=== PATIENT | male | born 1980 | race Two or more races ===

== ENCOUNTER → 2020-03-28 08:30 | Outpatient (BNVA) | payer OTHER, SELFPAY | PROVIDERS: PCP Internal Medicine Geriatric Medicine; Visit Provider Internal Medicine Gastroenterology | DX: Z13.89 Encounter for screening for other disorder (principal) | CPT/HCPCS: Q3014 ==

== ENCOUNTER 2020-06-14 10:02 | Outpatient (REF) | payer OTHER, SELFPAY ==
--- NOTE | ~2020-06-14 | XR_ITS ---
EXAMINATION: XR CERVICAL SPINE CLINICAL INFORMATION: Enteritis COMPARISON: Previous exam most recent October 2016 TECHNIQUE: 6 views of the cervical spine including swimmer's and bilateral oblique views were obtained. FINDINGS: Bone alignment is normal. No fracture or dislocation is seen. There is evidence of degenerative cervical spondylosis at C6-C7. Disc spaces are normal. There is mild right-sided neuroforaminal narrowing from bony osteophyte at C3-C4 C5-C6 and C6-C7. Evaluation of left-sided neural foramen is limited due to patient positioning. There is left-sided neuroforaminal narrowing at C4-C5 and C6-C7 from bony osteophyte. Prevertebral soft tissues are normal. XR/XR cervical spine 4V IMPRESSION: Mild degenerative spondylosis at C6-C7. Bilateral neuroforaminal narrowing from bony osteophyte.
--- NOTE | 2020-06-14 10:15 | EMG_ITS ---
HISTORY OF PRESENT ILLNESS: This is a 39-year-old man with a history of left upper extremity pain, mostly in the shoulder area going down the left upper extremity. CURRENT MEDICATIONS: Gabapentin 600 mg a day, nabumetone 750, oxycodone , bupropion SR 300, trazodone 100 mg, clonazepam 1 mg, atenolol, omeprazole, prazosin, and terbinafine. PHYSICAL EXAMINATION: On examination, he is alert and oriented with normal intellectual functions. Cranial nerves II through XII are normal. Muscle tone and strength are normal in all 4 extremities. Deep tendon reflexes symmetrical. Plantar response are flexor. IMPRESSION: Rule out cervical radiculopathy. Nerve conduction EMG study: Normal electrodiagnostic study of the left upper extremity with no evidence of nerve entrapment or carpal tunnel syndrome. Normal EMG of the left C5 through T1 innervated muscles. MD ANA Abdullahi/ANASTASIYA / [id number]
== END 2020-06-14 10:03 | disposition home or self-care (01) ==
LOC: HO.NEURO 10:02
PROVIDERS: PCP Internal Medicine Geriatric Medicine; Visit Provider Internal Medicine Geriatric Medicine
DX: M79.2 Neuralgia and neuritis, unspecified (principal); R20.0 Anesthesia of skin
CPT/HCPCS: 72050; 95885; 95910

== ENCOUNTER 2020-07-14 12:43 | Emergency (ER) | payer OTHER, SELFPAY ==
--- NOTE | 2020-07-14 | ECG_ITS ---
Test Reason : CHEST PAIN Blood Pressure : / mmHG Vent. Rate : 069 BPM Atrial Rate : 069 BPM P-R Int : 144 ms QRS Dur : 096 ms QT Int : 410 ms P-R-T Axes : 012 002 000 degrees QTc Int : 439 ms Normal sinus rhythm Moderate voltage criteria for LVH, may be normal variant Borderline ECG When compared with ECG of 05-NOV-2018 15:18, No significant change was found Referred By: Generic ED Physician Electronically Signed By:RENA COLES MD
--- NOTE | ~2020-07-14 | XR_ITS ---
EXAMINATION: XR CHEST CLINICAL INFORMATION: Chest pain and palpitations COMPARISON: None TECHNIQUE: Frontal view of the chest was obtained. FINDINGS: The lungs are well-expanded and clear of acute process. Heart size and vascularity is normal. No gross bony abnormality. XR/XR chest 1V IMPRESSION: Unremarkable chest exam.
[2020-07-14 13:00] VITALS: BP 139/84; PULSE 74; RESP 18; TEMP 36.8; O2SAT 99; BMI 38.6
--- NOTE | 2020-07-14 14:32 | ED.GENADULT ---
HPI - General Adult General Chief complaint: Arrhythmia/Palpitations Stated complaint: HBP headache chest pain Time Seen by Provider: 07/14/20 13:50 Source: patient Mode of arrival: ambulatory Limitations: no limitations History of Present Illness HPI narrative: 40 y/o male with history of HTN on atenolol/HCTZ, anxiety, depression, hx diverticultiis, s/p lumbar fusion in the past who presents to the ED complaining of 3 days of episodic non-radiating central chest discomfort, palpitations, and headaches for the last 3 days. He has been compliant with his medications. He reports his BP was as high as 150/110 at home, his usual BP is 130/80's. He reports episodes of palpitations and SOB that occurred at rest or with exertion. He has increased anxiety lately. He denies fever, chills, N/V, abdominal pain, urinary symptoms, vision changes, or sick contacts. He presents with photos of his BP readings from home they are 130-140's systolic and 80-90's diastolic. MD complaint: high blood pressure, headache, chest pain Onset (ago): day(s) (3) Location: head and chest Radiation: non-radiation Severity: mild Severity scale (1-10): 3 Quality: aching Pain Consistency: intermittent Relieving factors: rest Exacerbating factors: movement Associated symptoms: chest pain, headaches and shortness of breath Treatments prior to arrival: none Related Data Previous Rx's Medication Instructions Recorded omeprazole 20 mg capsule,delayed 20 mg PO DAILY #60 cap 03/28/20 release Allergies Allergy/AdvReac Type Severity Reaction Status Date / Time tramadol [TRAMADOL] AdvReac Intermediate HTN Unverified 12/30/19 18:57 Bleach Allergy Mild Abdominal Uncoded 03/28/20 08:32 Pain Review of Systems Review of Systems: Constitutional: No Fever, No Chills ENT/Mouth: No sore throat, No Rhinorrhea, No Swallowing Difficulty Cardiovascular: + Chest Pain, + SOB, No Orthopnea, No Edema Respiratory: No Cough, No Sputum, No Wheezing, No dyspnea Gastrointestinal: No Nausea, No Vomiting, No Diarrhea, No abdominal Pain Genitourinary: No Dysuria, No Urinary Frequency, No Hematuria Musculoskeletal: No joint pain, No Myalgias Skin: No Skin Lesions, No rash Neuro: No Weakness, No Numbness, No Dizziness, + Headache Psych: + Anxiety/Panic, No Depression Heme/Lymph: No Bruising, No Lymphadenopathy Endocrine: No Polyuria, No Polydipsia PMFSH Past Medical History Attestation statement: The following information was validated with the patient. Medical History Anxiety Depression HTN (hypertension) Surgical History (Updated 03/28/20 @ 08:33 by Ema Mariscal CMA) History of back surgery History of colonoscopy Family History Family History (Updated 03/28/20 @ 08:34 by Ema Mariscal CMA) Father History of dementia Mother Family history of high blood pressure Social History Social History (Updated 03/28/20 @ 08:35 by Ema Mariscal CMA) Alcohol intake: current Alcohol intake frequency: holidays/special occasions only Smoking Status: Never smoker Tobacco Type: Cigarette Smoked in Last 30 Days: No Use of substances other than those prescribed or required for medical reasons: No Advance Directives: No Advance Directives Information Provided: No Physical Exam Vital Signs: Vital Signs: Last Vital Signs Temp 98.3 F 07/14/20 13:00 Pulse 71 07/14/20 14:52 Resp 17 07/14/20 14:52 BP 115/67 07/14/20 14:52 Pulse Ox 99 07/14/20 14:52 Body Mass Index 38.6 Appearance: Alert. Oriented X3. No acute distress. Eyes: Pupils equal, round and reactive to light. ENT: Pharynx normal. Neck: Normal inspection. Neck supple. CVS: Normal heart rate and rhythm. Pulses normal. Respiratory: No respiratory distress. Breath sounds normal. Mild parasternal chest wall tenderness Abdomen: Soft and nontender. +BS x4 Skin: Skin warm and dry. Normal skin color. Normal skin turgor. No rashes. Extremities: No lower extremity edema. Negative Dayana's sign. Neuro: Oriented X 3. No motor deficit. No sensory deficit. Course Course Course Narrative: 40 y/o male with history of HTN & anxiety presenting with high BP at home along with headaches and chest pain. BP 130/80's on arrival. He appears well on examination. He has mild reproducible chest discomfort. Mother explaining what sounds like anxiety attack prior to arrival which prompted ER evaluation, symptoms now resolved. Will get EKG, CXR and metabolic workup. Doubt ACS or PE. Reevaluation(s) Reevaluation #1: EKG unchanged. Other workup is unremarkable including negative troponin. Viral PCR negative. Patient's BP 120/70's without intervention. He is chest pain free. Anxiety likely playing a role in his episodic chest pain. He is stable for discharge with plans to follow up with his PCP and return to the ER if symptoms worsen. Medical Decision Making Lab Data Result diagrams: 07/14/20 15:30 07/14/20 15:30 Labs: Lab Results 07/14/20 07/14/20 07/14/20 Range/Units 15:30 15:30 15:30 WBC 7.9 (4.8-10.8) X10*3/uL RBC 5.36 (4.60-5.80) X10*6/uL Hgb 14.9 (14.0-18.0) g/dl Hct 44.4 (42-52) % MCV 82.8 (80-98) fL MCH 27.8 (27.0-33.0) pg MCHC 33.6 (31.0-36.0) g/dl RDW 13.2 (11.0-16.0) % Plt Count 239 (160-400) X10*3/uL MPV 12.1 (9.4-12.4) fL Immature Gran % (Auto) 0.3 (0.0-0.4) % Neut % (Auto) 54.7 (45-73) % Lymph % (Auto) 30.2 (20-40) % [place] % (Auto) 12.8 H (2-11) % Eos % (Auto) 1.1 (0-4) % Baso % (Auto) 0.9 (0-2) % Lymph # (Auto) 2.4 (1.2-4.9) X10*3/uL [place] # (Auto) 1.0 (0.1-1.2) X10*3/uL Eos # (Auto) 0.1 (0.0-0.4) X10*3/uL Baso # (Auto) 0.1 (0.0-0.2) X10*3/uL Abs Immat Gran (auto) 0.02 (0.00-0.03) X10*3/uL Absolute Neuts (auto) 4.3 (2.0-8.3) X10*3/uL Absolute Nucleated RBC 0.000 (0.0-0.012) X10*3/uL Nucleated RBC % (auto) 0.0 (0.0-0.2) /100WBC PT 13.7 H (10.8-13.0) SEC INR 1.2 H (0.9-1.1) APTT 34.9 (24.1-38.0) SEC Sodium 140 (135-145) mmol/L Potassium 3.3 (3.3-5.1) mmol/L Chloride 98 (96-108) mmol/L Carbon Dioxide 34 H (22-29) mmol/L Anion Gap 11 L (12-20) BUN 18 H (9-16) mg/dL Creatinine 1.19 (0.5-1.4) mg/dL Estim Creat Clear Calc 115.8 Estimated GFR > 60 Random Glucose 96 (60-115) mg/dL Calcium 9.2 (8.4-10.2) mg/dL Magnesium 2.0 (1.6-2.6) mg/dL Total Bilirubin 0.8 (0.0-1.0) mg/dL AST 33 (5-37) U/L ALT 47 H (0-40) U/L Alkaline Phosphatase 60 (39-117) U/L Troponin I High Sens (<3.5-35.0) ng/L Total Protein 7.6 (6.5-8.0) g/dL Albumin 4.5 (3.5-5.0) g/dL TSH Coronavirus (PCR) (Negative) Influenza Type A (PCR) (Negative) Influenza Type B (PCR) (Negative) RSV RNA Qual (PCR) (Negative) 07/14/20 07/14/20 07/14/20 Range/Units 15:30 15:30 15:30 WBC (4.8-10.8) X10*3/uL RBC (4.60-5.80) X10*6/uL Hgb (14.0-18.0) g/dl Hct (42-52) % MCV (80-98) fL MCH (27.0-33.0) pg MCHC (31.0-36.0) g/dl RDW (11.0-16.0) % Plt Count (160-400) X10*3/uL MPV (9.4-12.4) fL Immature Gran % (Auto) (0.0-0.4) % Neut % (Auto) (45-73) % Lymph % (Auto) (20-40) % [place] % (Auto) (2-11) % Eos % (Auto) (0-4) % Baso % (Auto) (0-2) % Lymph # (Auto) (1.2-4.9) X10*3/uL [place] # (Auto) (0.1-1.2) X10*3/uL Eos # (Auto) (0.0-0.4) X10*3/uL Baso # (Auto) (0.0-0.2) X10*3/uL Abs Immat Gran (auto) (0.00-0.03) X10*3/uL Absolute Neuts (auto) (2.0-8.3) X10*3/uL Absolute Nucleated RBC (0.0-0.012) X10*3/uL Nucleated RBC % (auto) (0.0-0.2) /100WBC PT (10.8-13.0) SEC INR (0.9-1.1) APTT (24.1-38.0) SEC Sodium (135-145) mmol/L Potassium (3.3-5.1) mmol/L Chloride (96-108) mmol/L Carbon Dioxide (22-29) mmol/L Anion Gap (12-20) BUN (9-16) mg/dL Creatinine (0.5-1.4) mg/dL Estim Creat Clear Calc Estimated GFR Random Glucose (60-115) mg/dL Calcium (8.4-10.2) mg/dL Magnesium (1.6-2.6) mg/dL Total Bilirubin (0.0-1.0) mg/dL AST (5-37) U/L ALT (0-40) U/L Alkaline Phosphatase (39-117) U/L Troponin I High Sens < 3.5 (<3.5-35.0) ng/L Total Protein (6.5-8.0) g/dL Albumin (3.5-5.0) g/dL TSH Cancelled Coronavirus (PCR) NEGATIVE (Negative) Influenza Type A (PCR) NEGATIVE (Negative) Influenza Type B (PCR) NEGATIVE (Negative) RSV RNA Qual (PCR) NEGATIVE (Negative) ECG Data Attestation: I personally reviewed and interpreted this ECG as follows: Interpretation: normal sinus rhythm, HR 69 bpm, [place] interval, QTc normal. isolated t-wave inversion in lead III which is unchanged from 2019 Discharge Plan Discharge Clinical Impression: Anxiety, Hypertension Patient Disposition: Home, Self-Care Instructions: Hypertension (ED), Anxiety (ED) Additional Instructions: Your workup today was normal. Your EKG was unchanged from prior. Your chest x-ray was negative. You were NEGATIVE for COVID, Flu and RSV. It is very unlikely that your pain is due to life threatening causes. Stick to a low salt diet to help control your blood pressure. Anxiety is likely a contributing factor. Recommend following up with your doctor next week. If you have worsening symptoms come back to the ER for further evaluation. Prescriptions: No Action omeprazole 20 mg capsule,delayed release(DR/EC) 20 mg PO DAILY Qty: 60 RF: 3
[2020-07-14 14:52] VITALS: BP 115/67; PULSE 71; RESP 17; O2SAT 99
[2020-07-14 15:43] LABS: MANUAL DIFF FLAG NO
[2020-07-14 15:45] LABS: Basophils Absolute Auto 0.1 X10*3/uL (0.0-0.2); Basophils Percent Auto 0.9 % (0-2); Eosinophils Absolute Auto 0.1 X10*3/uL (0.0-0.4); Eosinophils Percent Auto 1.1 % (0-4); Hematocrit 44.4 % (42-52); Hemoglobin 14.9 g/dl (14.0-18.0); Imm Gran Abs Auto 0.02 X10*3/uL (0.00-0.03); Imm Gran Pct Auto 0.3 % (0.0-0.4); Lymphocytes Absolute Auto 2.4 X10*3/uL (1.2-4.9); Lymphocytes Percent Auto 30.2 % (20-40); Mean Corpuscular HGB Conc 33.6 g/dl (31.0-36.0); Mean Corpuscular Hemoglobin 27.8 pg (27.0-33.0); Mean Corpuscular Volume 82.8 fL (80-98); Mean Platelet Volume 12.1 fL (9.4-12.4); Monocytes Percent Auto 12.8 % (2-11); Neutrophils Absolute Auto 4.3 X10*3/uL (2.0-8.3); Neutrophils Percent Auto 54.7 % (45-73); Platelet Count 239 X10*3/uL (160-400); Red Blood Count 5.36 X10*6/uL (4.60-5.80); Red Cell Distribution Width 13.2 % (11.0-16.0); White Blood Count 7.9 X10*3/uL (4.8-10.8)
[2020-07-14 15:52] LABS: INTERNATIONAL NORM RATIO 1.2 (0.9-1.1); Prothrombin Time 13.7 SEC (10.8-13.0)
[2020-07-14 15:54] LABS: Partial Thromboplastin Time 34.9 SEC (24.1-38.0)
[2020-07-14 16:11] LABS: Alanine Aminotransferase 47 U/L (0-40); Albumin Level 4.5 g/dL (3.5-5.0); Alkaline Phosphatase 60 U/L (39-117); Anion Gap 11 (12-20); Aspartate Amino Transferase 33 U/L (5-37); Bilirubin Total 0.8 mg/dL (0.0-1.0); Blood Urea Nitrogen 18 mg/dL (9-16); Calcium 9.2 mg/dL (8.4-10.2); Carbon Dioxide 34 mmol/L (22-29); Chloride 98 mmol/L (96-108); Creatinine Clr Calc Pharmacy 115.8; Estimated Glomerular Filt Rate > 60; Glucose Random 96 mg/dL (60-115); Potassium 3.3 mmol/L (3.3-5.1); Sodium 140 mmol/L (135-145); Total Protein 7.6 g/dL (6.5-8.0)
[2020-07-14 16:14] LABS: Troponin-I High Sensitivity < 3.5 ng/L (<3.5-35.0)
[2020-07-14 16:19] LABS: Influenza A PCR NEGATIVE (Negative); Influenza B PCR NEGATIVE (Negative); Resp Syncy Virus RNA Qual PCR NEGATIVE (Negative); SARS COV2 PCR INHOUSE NEGATIVE (Negative)
[2020-07-14 16:56] LABS: TSH reflex Free T4 1.18 uIU/mL (0.32-4.0)
== END 2020-07-14 17:15 | disposition home or self-care (01) ==
PROVIDERS: Nurse Practitioner Primary Care; Physician Assistant; Emergency Provider Emergency Medicine; PCP Internal Medicine Geriatric Medicine
DX: F41.9 Anxiety disorder, unspecified (principal); I10 Essential (primary) hypertension; Z79.899 Other long term (current) drug therapy; Z20.822 Contact with and (suspected) exposure to COVID-19
CPT/HCPCS: 0241U; 36415; 71045; 80053; 83735; 84443; 84484; 85025; 85610; 85730; 93005; 99283; 99285

== ENCOUNTER → 2020-10-25 10:27 | Outpatient (BNVA) | payer OTHER, SELFPAY | PROVIDERS: Visit Provider Physician Assistant | DX: Z13.89 Encounter for screening for other disorder (principal) | CPT/HCPCS: Q3014 ==

== ENCOUNTER 2020-10-28 08:04 | Observation (INO) | payer OTHER, SELFPAY ==
--- NOTE | ~2020-10-28 | CT_ITS ---
EXAMINATION: CT ABDOMEN AND PELVIS WITH CONTRAST CLINICAL INFORMATION: Abdominal pain. History of diverticulitis. COMPARISON: None TECHNIQUE: Multidetector volumetric images were obtained from the superior aspect of the liver through the pubic symphysis following administration 85 mL of Omnipaque 350 intravenous contrast. Sagittal and coronal reformatted images were obtained on the technologist's workstation. Oral contrast: No This CT examination was performed using dose optimization techniques as appropriate, variously including the following: *Automated exposure control *Adjustment of mA and/or kV according to patient size (this includes techniques or standardized protocols for targeted exams where dose is matched to indication/reason for exam; i.e. extremities or head) *Use of iterative reconstruction technique DLP: 1326 mGy-cm FINDINGS: LUNG BASES: The heart size is normal. There is minimal bibasilar atelectasis. LIVER, GALLBLADDER, AND BILIARY TREE: The liver is normal in size, shape, and diffusely attenuated. No focal hepatic lesion or biliary ductal dilatation is present. The gallbladder is unremarkable with no evidence of radiopaque gallstones, gallbladder wall thickening, or obvious pericholecystic inflammatory changes. PANCREAS: Unremarkable. SPLEEN: Unremarkable. ADRENAL GLANDS: Unremarkable. KIDNEYS AND URETERS: The kidneys are normal in size, shape, and attenuation. No hydronephrosis, hydroureter, or calculi seen. No perinephric stranding. BLADDER: Unremarkable. GASTROINTESTINAL TRACT: There is scattered stool, diverticuli and gas seen throughout the colon. The small bowel loops are normal caliber. Appendix is thickened with focal hyperdensity it measures 1.2 cm in the diameter there is mild haziness surrounding the appendix suspicious for early appendicitis no periappendiceal fluid collection or free air. ABDOMINAL WALL: No significant hernia is appreciated. LYMPH NODES: Normal. VASCULAR: Unremarkable. PELVIC VISCERA: The prostate gland is normal size with central gland calcification. There is no free fluid. Small shotty lymph nodes seen in the inguinal region. No pelvic abnormal lymph nodes seen. OSSEOUS STRUCTURES: There is moderate posterior spondylosis with bridging osteophytes L2-L3. L3-L4 and L4-L5 disc levels. There is grade 1 anterolisthesis L5-S1 with spondylosis and posterior hardware for stabilization of listhesis. There are posterior epidural spinal stimulator in the lower dorsal spine. The generalized within the left lower back soft tissues. CT/CT abdomen pelvis w con IMPRESSION: Suspect early acute appendicitis. The appendix measures 1 cm. There is no suggestion for perforation or fluid collection. Correlate with clinical exam. Scattered colonic diverticulosis but no diverticulitis is suspected. Diffuse hepatic steatosis without focal lesion.
--- NOTE | 2020-10-28 08:23 | ED.ABDPAIN ---
HPI - Abdominal Pain General Chief Complaint: Nausea/Vomiting/Diarrhea Stated Complaint: Stomach Pains Time Seen by Provider: 10/28/20 08:23 Source: patient and family Mode of arrival: ambulatory Limitations: no limitations History of Present Illness MD elicited complaint: abdominal pain Pertinent past history: diverticulitis Onset (ago): hour(s) (last night) Pain Consistency: constant Location: diffuse Severity: moderate Quality: stabbing Radiation: none Migration to: no migration Exacerbating factors: eating Relieving factors: nothing Associated symptoms: nausea, vomiting and diarrhea Related Data Home Medications Medication Instructions Recorded Confirmed atenolol 50 mg-chlorthalidone 25 1 tab PO DAILY 10/25/20 10/25/20 mg tablet bupropion HCl 300 mg 24 hr tablet, 300 mg PO QAM 10/25/20 10/25/20 extended release clonazepam 1 mg tablet 1 mg PO TID PRN 10/25/20 10/25/20 ergocalciferol (vitamin D2) 1,250 1,250 mcg PO QWEEK 10/25/20 10/25/20 mcg (50,000 unit) capsule fluticasone propionate 50 2 spray INTRANASAL DAILY 10/25/20 10/25/20 mcg/actuation nasal spray,suspension gabapentin 600 mg tablet 600 mg PO TID 10/25/20 10/25/20 nabumetone 750 mg tablet 750 mg PO BID 10/25/20 10/25/20 oxycodone-acetaminophen 5 mg-325 1 tab PO TID PRN 10/25/20 10/25/20 mg tablet prazosin 1 mg capsule 1 mg PO BEDTIME 10/25/20 10/25/20 trazodone 100 mg tablet 0 mg PO 10/25/20 10/25/20 Previous Rx's Medication Instructions Recorded omeprazole 20 mg capsule,delayed 20 mg PO DAILY #60 cap 03/28/20 release sennosides 8.6 mg tablet 8.6 mg PO BEDTIME #30 tab 10/25/20 Allergies Allergy/AdvReac Type Severity Reaction Status Date / Time tramadol [TRAMADOL] AdvReac Intermediate HTN Verified 10/25/20 10:27 Bleach Allergy Mild Abdominal Uncoded 03/28/20 08:32 Pain Review of Systems Review of Systems Constitutional : No Weight loss, No Fever, No Chills ENT/Mouth : No sore throat, No Rhinorrhea Eyes: No Swelling, No Redness Cardiovascular : No Chest Pain, No SOB, NoEdema Respiratory : No Cough, No Sputum, No Wheezing Gastrointestinal : Positive Nausea, Positive Vomiting, positive Diarrhea, positive abdominal Pain, No Hematochezia, No Melena Genitourinary : No Dysuria, No Urinary Frequency, No Hematuria, No Urgency Musculoskeletal : No joint pain, No Myalgias, No Joint Swelling Skin : No Skin Lesions, No rash Neuro : No Weakness, No Numbness, No Dizziness, No Headache Psych : No Anxiety/Panic, No Depression Heme/Lymph: No Bruising, No Lymphadenopathy Endocrine : No Polyuria, No Polydipsia All other systems reviewed and are negative. Physical Exam Vital Signs: Vital Signs: Last Vital Signs Temp 98.4 F 10/28/20 08:25 Pulse 76 10/28/20 08:25 BP 145/90 H 10/28/20 08:25 Pulse Ox 98 10/28/20 08:25 Body Mass Index 39.3 Appearance: Alert. Oriented X3. No acute distress. Eyes: Pupils equal, round and reactive to light. ENT: Pharynx normal. Neck: Normal inspection. Neck supple. CVS: Normal heart rate and rhythm. Pulses normal. Respiratory: No respiratory distress. Breath sounds normal. Abdomen: Soft and moderate diffuse ttp no rebound or guarding Skin: Skin warm and dry. Normal skin color. Normal skin turgor. Extremities: No lower extremity edema. No calf ttp Neuro: Oriented X 3. No motor deficit. No sensory deficit. Course Course Course Narrative: ? early appendicitis, repeat IV pain medications, no tachycardia fever WBC count no signs of sepsis, IV zosyn ordered, message sent to Dr. Delong 1030am [facility] - Abdominal Pain MDM Narrative Medical decision making narrative: 40 yo male with hx of HTN, GERD, chronic back pain comes in with n/v/d and abdominal pain after eating food at home last night - at this time will need labs, IV morphine for pain, CT scan for diverticulitis, dispo per results and findings. Differential Diagnosis Differential diagnosis: Likely abdominal pain, diverticulitis, gastroenteritis and gastritis; Unlikely aortic dissection and acute appendicitis Lab Data Result diagrams: 10/28/20 08:39 10/28/20 08:39 Labs: Lab Results 10/28/20 10/28/20 Range/Units 08:39 08:39 WBC 10.5 (4.8-10.8) X10*3/uL RBC 5.20 (4.60-5.80) X10*6/uL Hgb 14.6 (14.0-18.0) g/dl Hct 42.7 (42-52) % MCV 82.1 (80-98) fL MCH 28.1 (27.0-33.0) pg MCHC 34.2 (31.0-36.0) g/dl RDW 13.3 (11.0-16.0) % Plt Count 213 (160-400) X10*3/uL MPV 11.1 (9.4-12.4) fL Immature Gran % (Auto) 0.4 (0.0-0.4) % Neut % (Auto) 81.2 H (45-73) % Lymph % (Auto) 8.1 L (20-40) % [place] % (Auto) 9.2 (2-11) % Eos % (Auto) 0.5 (0-4) % Baso % (Auto) 0.6 (0-2) % Lymph # (Auto) 0.9 L (1.2-4.9) X10*3/uL [place] # (Auto) 1.0 (0.1-1.2) X10*3/uL Eos # (Auto) 0.1 (0.0-0.4) X10*3/uL Baso # (Auto) 0.1 (0.0-0.2) X10*3/uL Abs Immat Gran (auto) 0.04 H (0.00-0.03) X10*3/uL Absolute Neuts (auto) 8.5 H (2.0-8.3) X10*3/uL Absolute Nucleated RBC 0.000 (0.0-0.012) X10*3/uL Nucleated RBC % (auto) 0.0 (0.0-0.2) /100WBC Sodium 140 (135-145) mmol/L Potassium 3.5 (3.3-5.1) mmol/L Chloride 100 (96-108) mmol/L Carbon Dioxide 29 (22-29) mmol/L Anion Gap 15 (12-20) BUN 14 (9-16) mg/dL Creatinine 1.09 (0.5-1.4) mg/dL Estim Creat Clear Calc 127.6 Estimated GFR > 60 Random Glucose 148 H D (60-115) mg/dL Calcium 9.8 D (8.4-10.2) mg/dL Magnesium 1.6 (1.6-2.6) mg/dL Total Bilirubin 0.9 (0.0-1.0) mg/dL Direct Bilirubin 0.3 (0.0-0.5) mg/dL AST 28 (5-37) U/L ALT 38 (0-40) U/L Alkaline Phosphatase 77 D (39-117) U/L Total Protein 7.7 (6.5-8.0) g/dL Albumin 4.4 (3.5-5.0) g/dL Lipase 29 (8-78) U/L Discharge Plan Discharge Clinical Impression: Abdominal pain Qualifiers: Abdominal location: right lower quadrant Qualified Code(s): R10.31 - Right lower quadrant pain Acute appendicitis Qualifiers: Acute appendicitis type: with localized peritonitis Appendicitis gangrene presence: without gangrene Appendicitis perforation presence: without perforation Appendicitis abscess presence: without abscess Qualified Code(s): K35.30 - Acute appendicitis with localized peritonitis, without perforation or gangrene Patient Disposition: Admitted As Inpatient [facility] Past Medical History Attestation statement: The following information was validated with the patient. Medical History Anxiety Depression HTN (hypertension) Surgical History History of back surgery History of colonoscopy Family History Family History Father History of dementia Mother Family history of high blood pressure Social History Social History Household Members Other:: Alcohol intake: never Patient Tobacco Use Status: Former Tobacco user Use of substances other than those prescribed or required for medical reasons: No Advance Directives: No Advance Directives Information Provided: Yes Current occupational status: unemployed
[2020-10-28 08:25] VITALS: BP 145/90; PULSE 76; TEMP 36.9; O2SAT 98; BMI 39.3
[2020-10-28] MEDS: 0.9 % Sodium Chloride 1,000 ML 999 ML IVCONT (08:42)
[2020-10-28] MEDS: ondansetron HCL 4 MG/2 ML VIAL IVPUSH (08:43)
[2020-10-28] MEDS: Famotidine/PF 20 MG/2 ML VIAL IVPUSH (08:43)
[2020-10-28 08:44] LABS: Basophils Absolute Auto 0.1 X10*3/uL (0.0-0.2); Basophils Percent Auto 0.6 % (0-2); Eosinophils Absolute Auto 0.1 X10*3/uL (0.0-0.4); Eosinophils Percent Auto 0.5 % (0-4); Hematocrit 42.7 % (42-52); Hemoglobin 14.6 g/dl (14.0-18.0); Imm Gran Abs Auto 0.04 X10*3/uL (0.00-0.03); Imm Gran Pct Auto 0.4 % (0.0-0.4); Lymphocytes Absolute Auto 0.9 X10*3/uL (1.2-4.9); Lymphocytes Percent Auto 8.1 % (20-40); MANUAL DIFF FLAG NO; Mean Corpuscular HGB Conc 34.2 g/dl (31.0-36.0); Mean Corpuscular Hemoglobin 28.1 pg (27.0-33.0); Mean Corpuscular Volume 82.1 fL (80-98); Mean Platelet Volume 11.1 fL (9.4-12.4); Monocytes Percent Auto 9.2 % (2-11); Neutrophils Absolute Auto 8.5 X10*3/uL (2.0-8.3); Neutrophils Percent Auto 81.2 % (45-73); Platelet Count 213 X10*3/uL (160-400); Red Cell Distribution Width 13.3 % (11.0-16.0); White Blood Count 10.5 X10*3/uL (4.8-10.8)
[2020-10-28] MEDS: Morphine Sulfate 4 MG/ML CARTRIDGE IVPUSH ×2 (08:44→23:37)
[2020-10-28 09:14] LABS: Alanine Aminotransferase 38 U/L (0-40); Albumin Level 4.4 g/dL (3.5-5.0); Alkaline Phosphatase 77 U/L (39-117); Anion Gap 15 (12-20); Aspartate Amino Transferase 28 U/L (5-37); Bilirubin Direct 0.3 mg/dL (0.0-0.5); Bilirubin Total 0.9 mg/dL (0.0-1.0); Blood Urea Nitrogen 14 mg/dL (9-16); Calcium 9.8 mg/dL (8.4-10.2); Carbon Dioxide 29 mmol/L (22-29); Chloride 100 mmol/L (96-108); Creatinine Clr Calc Pharmacy 127.6; Estimated Glomerular Filt Rate > 60; Glucose Random 148 mg/dL (60-115); Lipase 29 U/L (8-78); Magnesium 1.6 mg/dL (1.6-2.6); Potassium 3.5 mmol/L (3.3-5.1); Sodium 140 mmol/L (135-145); Total Protein 7.7 g/dL (6.5-8.0)
[2020-10-28] MEDS: iohexoL 350 MG/ML 100 ML INFUS..BTL IV (09:57)
[2020-10-28] MEDS: 0.9 % Sodium Chloride 1,000 ML 125 ML IVCONT ×2 (10:43→18:39)
[2020-10-28] MEDS: HYDROmorphone HCl 1 MG/ML SYRINGE IVPUSH (10:44)
[2020-10-28] MEDS: Piperacillin Sodium/Tazobactam 3.375 GM in 0.9 % Sodium Chloride 50 ML IV ×3 (10:45→20:34)
[2020-10-28 11:41] LABS: COVID-19 Test Negative (Negative)
[2020-10-28 11:46] LABS: INTERNATIONAL NORM RATIO 1.2 (0.9-1.1); Prothrombin Time 13.8 SEC (9.9-13.0)
--- NOTE | 2020-10-28 12:05 | PM.HPGS ---
History of Present Illness History of Present Illness Date of Service: 10/28/20 Chief complaint: Stomach Pains Narrative: Marino Fine is a 40 year old male with a previous history of diverticulitis presenting with complaints of abdominal pain diffusely in the lower abdomen since yesterday. Pain is associated with anorexia, nausea, vomiting, and diarrhea. Pain feels different than his usual diverticulitis symptoms. When the pain became more severe he presented to the emergency department for further evaluation. Evaluation in the ED revealed diffuse tenderness especially in the lower abdomen. Laboratories revealed normal WBC however CT revealed mild thickening of the appendix with no surrounding fluid, suggestive of early appendicitis. He is being admitted for management of this early appendicitis Review of Systems Review of Systems: Yes all other systems are reviewed and are negative Constitutional: Constitutional: Denies chills, Denies fever(s), Denies night sweats and Denies poor appetite Cardiovascular: Cardiovascular: Denies chest pain, Denies irregular heart rhythm and Denies lightheadedness Respiratory: Respiratory: Denies chest congestion, Denies cough and Denies excessive phlegm production Gastrointestinal: Gastrointestinal: Reports as per HPI, Reports abdominal pain, Reports GI cramping, Reports nausea and Reports vomiting Hematologic/Lymphatic: Hematologic/Lymphatic: Reports no additional hematologic/lymphatic complaints PMFSH Past Medical History Medical History (Updated 10/28/20 @ 12:09 by Russ Delong MD) Anxiety Depression GERD (gastroesophageal reflux disease) HTN (hypertension) Family History Family History Father History of dementia Mother Family history of high blood pressure Surgical History Surgical History History of back surgery History of colonoscopy Social History Social History Household Members Other:: Alcohol intake: never Patient Tobacco Use Status: Former Tobacco user Use of substances other than those prescribed or required for medical reasons: No Advance Directives: No Advance Directives Information Provided: Yes Current occupational status: unemployed Meds Allergies Allergy/AdvReac Type Severity Reaction Status Date / Time tramadol [TRAMADOL] AdvReac Intermediate HTN Verified 10/25/20 10:27 Bleach Allergy Mild Abdominal Uncoded 03/28/20 08:32 Pain Active Medications: Current Medications Generic Name Dose Route Start Last Admin Trade Name Jose Guadalupeq PRN Reason Stop Dose Admin Sodium Chloride 1,000 mls @ 125 mls/hr 10/28/20 10:30 10/28/20 10:43 Ns IVCONT 125 mls/hr .Q8H DAISY Administration Pharmacy Consult 1 each 10/28/20 10:24 Consult Rx Perform Med Rec MISCELLANE ONCE PRN Consult order Home Medications Medication Instructions Recorded Confirmed Last Taken Type atenolol 50 mg-chlorthalidone 25 1 tab PO DAILY 10/25/20 10/28/20 Unknown History mg tablet bupropion HCl 300 mg 24 hr tablet, 300 mg PO QAM 10/25/20 10/28/20 Unknown History extended release clonazepam 1 mg tablet 1 mg PO BID PRN 10/25/20 10/28/20 Unknown History ergocalciferol (vitamin D2) 1,250 1,250 mcg PO QWEEK 10/25/20 10/28/20 Unknown History mcg (50,000 unit) capsule gabapentin 600 mg tablet 600 mg PO TID 10/25/20 10/28/20 Unknown History nabumetone 750 mg tablet 750 mg PO BID 10/25/20 10/28/20 Unknown History oxycodone-acetaminophen 5 mg-325 1 tab PO TID PRN 10/25/20 10/28/20 Unknown History mg tablet prazosin 1 mg capsule 1 mg PO BEDTIME 10/25/20 10/28/20 Unknown History trazodone 100 mg tablet 0 mg PO 10/25/20 10/25/20 Unknown History Physical Exam Vital Signs: Vital Signs: Last Vital Signs Temp 98.4 F 10/28/20 08:25 Pulse 76 10/28/20 08:25 BP 145/90 H 10/28/20 08:25 Pulse Ox 98 10/28/20 08:25 Body Mass Index 39.3 Const: General: cooperative, comfortable, no acute distress, alert and awake Neck: Neck: Yes trachea midline and Yes supple Lymphatic: no lymphadenopathy noted Resp: Effort & Inspection: normal respiratory effort, no cough, no stridor and not tachypneic Auscultation: no wheezes GI: Inspection: Yes normal to inspection Palpation (GI): Soft to palpation and Tenderness to palpation present (GI) in the LLQ, in the RLQ and Rovsing's sign positive Percussion: Yes normal to percussion Auscultation: normal bowel sounds Rectal Exam - Male: Yes deferred Skin: Other: Warm, dry, no rash Extrem: General: Yes normal to inspection and Yes full ROM Results Results Labs: Short CBC 10/28/20 Range/Units 08:39 WBC 10.5 (4.8-10.8) X10*3/uL Hgb 14.6 (14.0-18.0) g/dl Hct 42.7 (42-52) % Plt Count 213 (160-400) X10*3/uL BMP 10/28/20 08:39 Sodium 140 Potassium 3.5 Chloride 100 Carbon Dioxide 29 BUN 14 Creatinine 1.09 Calcium 9.8 D Liver Function 10/28/20 Range/Units 08:39 Total Bilirubin 0.9 (0.0-1.0) mg/dL Direct Bilirubin 0.3 (0.0-0.5) mg/dL AST 28 (5-37) U/L ALT 38 (0-40) U/L Alkaline Phosphatase 77 D (39-117) U/L Albumin 4.4 (3.5-5.0) g/dL Assessment and Plan (1) Acute appendicitis: Qualifiers: Acute appendicitis type: with localized peritonitis Appendicitis abscess presence: without abscess Appendicitis gangrene presence: without gangrene Appendicitis perforation presence: without perforation Qualified Code(s): K35.30 - Acute appendicitis with localized peritonitis, without perforation or gangrene Status: Acute 40-year-old male presenting with complaints of lower abdominal pain found on workup to have tenderness in the right lower quadrant and left lower quadrant. Laboratories revealed WBC which was normal at 10.5. CT of the abdomen however did reveal findings suggestive of early appendicitis. We discussed laparoscopic appendectomy verses non operative management with IV antibiotics. After discussion of the risks benefits and alternatives he wishes to proceed with non operative management with IV antibiotics. He will be admitted and started on Zosyn IV. I will repeat is laboratories in the morning. If his symptoms do not improve he may require a laparoscopic appendectomy. Patient understands and agrees with the plan. Quality Stroke Does the patient have a stroke diagnosis?: No VTE Prior VTE?: No VTE Risk Level:: Surgical - low VTE Device Contraindication: N/A - Device Ordered VTE Drug Contraindication: Treatment Not Indicated Procedures Date of Service Date of Service: 10/28/20
[2020-10-28 14:01] VITALS: BP 140/80; PULSE 76; RESP 20; O2SAT 99
[2020-10-28] MEDS: HYDROmorphone HCl 0.5 MG/0.5 ML SYRINGE IVPUSH ×2 (14:03→19:27)
[2020-10-28 14:24] LABS: Glucose Urine UA NEG (NEG); Leukocyte Esterase Urine NEG (NEG); Nitrite Urine NEG (NEG); Urine Blood NEG (NEG); Urine Ketones NEG (NEG); Urine Protein NEG (NEG-TRACE)
[2020-10-28 14:38] LABS: Appearance Urine CLEAR; Color Urine YELLOW
--- NOTE | 2020-10-28 16:23 | PC.NURSE ---
pt informed of likely appendicitis, aware of plan to go to surgery. Pt informed of NPO status. family at bedside. Dilauded helpful for pain
[2020-10-28] MEDS: oxyCODONE HCl Immed Release 5 MG TABLET PO (16:49)
[2020-10-28] MEDS: Acetaminophen 325 MG TABLET 650 MG PO (16:49)
[2020-10-28 18:52] VITALS: BP 120/75; PULSE 96; RESP 15; TEMP 37.6; O2SAT 98
[2020-10-28 19:30] VITALS: BMI 40.2
[2020-10-28 19:58] VITALS: BP 120/75; PULSE 96; RESP 15; TEMP 37.6; O2SAT 98
[2020-10-28 22:32] VITALS: TEMP 37.9
[2020-10-28 23:52] VITALS: BP 119/75; PULSE 109; RESP 18; TEMP 36.4; O2SAT 96
[2020-10-29] VITALS (19 sets, daily range): BP systolic 101–138; BP diastolic 53–84; PULSE 78–106; RESP 16–18; TEMP 36.1–36.8; O2SAT 93–98
[2020-10-29] MEDS: Piperacillin Sodium/Tazobactam 3.375 GM in 0.9 % Sodium Chloride 50 ML IV (03:10)
[2020-10-29] MEDS: 0.9 % Sodium Chloride 1,000 ML 125 ML IVCONT ×3 (03:10→22:26)
[2020-10-29] MEDS: Morphine Sulfate 4 MG/ML CARTRIDGE IVPUSH ×2 (03:10→04:50)
[2020-10-29 06:22] LABS: MANUAL DIFF FLAG NO
[2020-10-29 06:32] LABS: Basophils Percent Auto 0.4 % (0-2); Eosinophils Absolute Auto 0.1 X10*3/uL (0.0-0.4); Eosinophils Percent Auto 1.1 % (0-4); Hematocrit 36.9 % (42-52); Hemoglobin 12.5 g/dl (14.0-18.0); Imm Gran Abs Auto 0.05 X10*3/uL (0.00-0.03); Imm Gran Pct Auto 0.6 % (0.0-0.4); Lymphocytes Absolute Auto 0.9 X10*3/uL (1.2-4.9); Lymphocytes Percent Auto 9.4 % (20-40); Mean Corpuscular HGB Conc 33.9 g/dl (31.0-36.0); Mean Corpuscular Hemoglobin 28.2 pg (27.0-33.0); Mean Corpuscular Volume 83.1 fL (80-98); Mean Platelet Volume 11.5 fL (9.4-12.4); Monocytes Absolute Auto 1.1 X10*3/uL (0.1-1.2); Monocytes Percent Auto 11.6 % (2-11); Neutrophils Percent Auto 76.9 % (45-73); Platelet Count 185 X10*3/uL (160-400); Red Blood Count 4.44 X10*6/uL (4.60-5.80); Red Cell Distribution Width 13.5 % (11.0-16.0); White Blood Count 9.1 X10*3/uL (4.8-10.8)
[2020-10-29 06:52] LABS: Anion Gap 12 (12-20); Blood Urea Nitrogen 9 mg/dL (9-16); Calcium 7.8 mg/dL (8.4-10.2); Carbon Dioxide 29 mmol/L (22-29); Chloride 101 mmol/L (96-108); Creatinine Clr Calc Pharmacy 145.2; Estimated Glomerular Filt Rate > 60; Glucose Random 123 mg/dL (60-115); Potassium 2.9 mmol/L (3.3-5.1); Sodium 139 mmol/L (135-145)
--- NOTE | 2020-10-29 07:31 | PM.PNGS ---
Subjective Subjective Date of Service: 10/29/20 Interval history: Patient continues to have abdominal pain mainly in the right lower quadrant 8 to 10/10 throughout the night, no improvement after the antibiotics. Physical Exam Vital Signs: Vital Signs: Last Vital Signs Temp 97.6 F 10/29/20 04:00 Pulse 97 10/29/20 04:00 Resp 18 10/29/20 04:00 BP 128/74 10/29/20 04:00 Pulse Ox 96 10/29/20 04:00 Body Mass Index 40.2 Const: General: healthy appearing and well developed Nutritional Appearance: well nourished Orientation/consciousness: patient oriented x3 Resp: Effort & Inspection: normal respiratory effort GI: Palpation (GI): Soft to palpation, Tenderness to palpation present (GI) in the RLQ and at McBurney's point, no guarding and not rigid Percussion: Yes normal to percussion Skin: Other: Warm, dry, no rash, normal capillary refill Neuro: General: patient oriented x3 Extrem: General: Yes no clubbing, cyanosis or edema Progress Note: A&P Assessment and plan (1) Acute appendicitis: Status: Acute Assessment and Plan: Patient presents with complaints of abdominal pain in the right lower quadrant found to have possible early appendicitis CT. An attempt management with antibiotics was made however the patient continues to have abdominal pain throughout the night without improvement. I recommended proceeding to a laparoscopic or possible open appendectomy. After discussion of the procedure, risks, and alternatives with both the patient and his they consent to the surgery. He will be added onto the operative schedule for today. Nursing central supply supervisor and Anesthesia notified. Fall Risk Details Current Medications: Current Medications Generic Name Dose Route Start Last Admin Trade Name Freq PRN Reason Stop Dose Admin Sodium Chloride 1,000 mls @ 125 mls/hr 10/28/20 10:30 10/29/20 03:48 Ns IVCONT 125 mls/hr .Q8H DAISY Infusion Piperacillin Sod/Tazobactam 50 mls @ 100 mls/hr 10/28/20 16:00 10/29/20 03:47 Sod 3.375 gm/ Sodium Chloride IV Infused Q6H DAISY Infusion Acetaminophen 1,000 mg in 100 mls @ 400 mls/hr 10/28/20 22:00 10/29/20 04:52 Ofirmev IV Infused Q6H DAISY Infusion Morphine Sulfate 4 mg 10/28/20 23:08 10/29/20 04:50 Morphine Sulfate 4 Mg/Ml Cartridge IVPUSH 4 mg Q2H PRN Administration Pain, Severe (Pain Scale 7-10) Ondansetron HCl 4 mg 10/28/20 12:26 Ondansetron Hcl 4 Mg/2 Ml Vial IVPUSH Q8H PRN Nausea and Vomiting Oxycodone HCl 5 mg 10/28/20 12:26 10/28/20 16:49 Oxycodone Hcl Immed Release 5 Mg Tablet PO 5 mg Q6H PRN Administration Pain, Moderate (Pain Scale 4-6 Pharmacy Consult 1 each 10/28/20 10:24 Consult Rx Perform Med Rec MISCELLANE ONCE PRN Consult order Sodium Chloride 3 ml 10/28/20 16:00 10/28/20 20:36 0.9 % Sodium Chloride Flush 3 Ml Syringe IVFLUSH Not Given QSHIFT DAISY Zolpidem Tartrate 5 mg 10/28/20 12:26 Zolpidem Tartrate 5 Mg Tablet PO BEDTIME PRN Insomnia Time Spent With Patient Time: Total time spent is greater than 50% in coordination of care (as documented) at patient's floor/unit and/or counseling patient: Time with patient: 15 - 24 minutes Procedures Date of Service Date of Service: 10/29/20 Quality Stroke Does the patient have a stroke diagnosis?: No VTE Prior VTE?: No VTE Risk Level:: Surgical - low VTE Device Contraindication: N/A - Device Ordered VTE Drug Contraindication: Treatment Not Indicated
--- NOTE | 2020-10-29 07:34 | MHC.SHP ---
Pre-Procedural Eval Section A Date of Service: 10/29/20 The patient is an INPATIENT: Yes Section B Chief Complaint: Early Appendicitis Allergies: Allergies Allergy/AdvReac Type Severity Reaction Status Date / Time tramadol [TRAMADOL] AdvReac Intermediate HTN Verified 10/25/20 10:27 Bleach Allergy Mild Abdominal Uncoded 03/28/20 08:32 Pain Plan Diagnosis/Plan: Unchanged I have reviewed the history and physical and performed a pertinent physical examination on my patient. No changes have occurred unless specified.
--- NOTE | 2020-10-29 09:21 | MHC.CM.PN ---
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 HE OCCASIONALLY USES A CANE FOR AMBULATION DOES MAJORITY OF TRANSPORTATION. PCP IS [facility] NAME AND UPDATE MADE TO CM OFFICE VIA QUICK TASK. YEARLY LUMBER TRIPPER VISITS THROUGH [facility]. THERE IS A HCP ON FILE; HOWEVER, IT IS INVALID HCP ALSO SIGNED WITNESS. NEW ONE TO BE COMPLETED WHEN PATIENT RETURNS TO FLOOR AND IS ABLE OT MAKE THE DECISION. JAY 10/29 IN CHART.
--- NOTE | 2020-10-29 09:27 | HO.ANESPROP2 ---
[facility] Active Problems Active Problems: All Active Problems (Updated 10/28/20 @ 12:09 by Russ Delong MD) GERD (gastroesophageal reflux disease) (Acute) Abdominal pain (Acute) Acute appendicitis (Acute) Chronic constipation (Acute) Past Medical History Medical History Anxiety Depression GERD (gastroesophageal reflux disease) HTN (hypertension) Family History Family History Father History of dementia Mother Family history of high blood pressure Surgical History Surgical History History of back surgery History of colonoscopy Social History Social History Household Members Other:: Alcohol intake: never Patient Tobacco Use Status: Former Tobacco user Use of substances other than those prescribed or required for medical reasons: No Advance Directives: No Advance Directives Information Provided: Yes service: No Current occupational status: unemployed Meds Allergies Allergy/AdvReac Type Severity Reaction Status Date / Time tramadol [TRAMADOL] AdvReac Intermediate HTN Verified 10/25/20 10:27 Bleach Allergy Mild Abdominal Uncoded 03/28/20 08:32 Pain Active Medications: Current Medications Generic Name Dose Route Start Last Admin Trade Name Freq PRN Reason Stop Dose Admin Sodium Chloride 1,000 mls @ 125 mls/hr 10/28/20 10:30 10/29/20 03:48 Ns IVCONT 125 mls/hr .Q8H DAISY Infusion Piperacillin Sod/Tazobactam 50 mls @ 100 mls/hr 10/28/20 16:00 10/29/20 03:47 Sod 3.375 gm/ Sodium Chloride IV Infused Q6H DAISY Infusion Acetaminophen 1,000 mg in 100 mls @ 400 mls/hr 10/28/20 22:00 10/29/20 04:52 Ofirmev IV Infused Q6H DAISY Infusion Morphine Sulfate 4 mg 10/28/20 23:08 10/29/20 04:50 Morphine Sulfate 4 Mg/Ml Cartridge IVPUSH 4 mg Q2H PRN Administration Pain, Severe (Pain Scale 7-10) Ondansetron HCl 4 mg 10/28/20 12:26 Ondansetron Hcl 4 Mg/2 Ml Vial IVPUSH Q8H PRN Nausea and Vomiting Oxycodone HCl 5 mg 10/28/20 12:26 10/28/20 16:49 Oxycodone Hcl Immed Release 5 Mg Tablet PO 5 mg Q6H PRN Administration Pain, Moderate (Pain Scale 4-6 Pharmacy Consult 1 each 10/28/20 10:24 Consult Rx Perform Med Rec MISCELLANE ONCE PRN Consult order Sodium Chloride 3 ml 10/28/20 16:00 10/29/20 07:43 0.9 % Sodium Chloride Flush 3 Ml Syringe IVFLUSH Not Given QSHIFT DAISY Zolpidem Tartrate 5 mg 10/28/20 12:26 Zolpidem Tartrate 5 Mg Tablet PO BEDTIME PRN Insomnia Home Medications Medication Instructions Recorded Confirmed Last Taken Type atenolol 50 mg-chlorthalidone 25 1 tab PO DAILY 10/25/20 10/28/20 Unknown History mg tablet bupropion HCl 300 mg 24 hr tablet, 300 mg PO QAM 10/25/20 10/28/20 Unknown History extended release clonazepam 1 mg tablet 1 mg PO BID PRN 10/25/20 10/28/20 Unknown History ergocalciferol (vitamin D2) 1,250 1,250 mcg PO QWEEK 10/25/20 10/28/20 Unknown History mcg (50,000 unit) capsule gabapentin 600 mg tablet 600 mg PO TID 10/25/20 10/28/20 Unknown History nabumetone 750 mg tablet 750 mg PO BID 10/25/20 10/28/20 Unknown History oxycodone-acetaminophen 5 mg-325 1 tab PO TID PRN 10/25/20 10/28/20 Unknown History mg tablet prazosin 1 mg capsule 1 mg PO BEDTIME 10/25/20 10/28/20 Unknown History trazodone 100 mg tablet 150 mg PO DAILY 10/25/20 10/28/20 Unknown History Exam Exam Date and Time: October 29, [id number] Height,Weight and Vital Signs: Height 6 ft Weight 134.7 kg Last Vital Signs Temp 98.3 F 10/29/20 07:51 Pulse 94 10/29/20 07:51 Resp 18 10/29/20 07:51 BP 110/72 10/29/20 07:51 Pulse Ox 97 10/29/20 07:51 Pertinent Lab Results Pertinent Lab Results: Laboratory Tests 10/28/20 10/28/20 10/28/20 08:39 08:39 11:04 WBC 10.5 RBC 5.20 Hgb 14.6 Hct 42.7 MCV 82.1 MCH 28.1 MCHC 34.2 RDW 13.3 Plt Count 213 MPV 11.1 Immature Gran % (Auto) 0.4 Neut % (Auto) 81.2 H Lymph % (Auto) 8.1 L [place] % (Auto) 9.2 Eos % (Auto) 0.5 Baso % (Auto) 0.6 Lymph # (Auto) 0.9 L [place] # (Auto) 1.0 Eos # (Auto) 0.1 Baso # (Auto) 0.1 Abs Immat Gran (auto) 0.04 H Absolute Neuts (auto) 8.5 H Absolute Nucleated RBC 0.000 Nucleated RBC % (auto) 0.0 PT INR APTT Sodium 140 Potassium 3.5 Chloride 100 Carbon Dioxide 29 Anion Gap 15 BUN 14 Creatinine 1.09 Estim Creat Clear Calc 127.6 Estimated GFR > 60 Random Glucose 148 H D Calcium 9.8 D Magnesium 1.6 Total Bilirubin 0.9 Direct Bilirubin 0.3 AST 28 ALT 38 Alkaline Phosphatase 77 D Total Protein 7.7 Albumin 4.4 Lipase 29 Urine Color Urine Appearance Urine pH Ur Specific [place] Urine Protein Urine Glucose (UA) Urine Ketones Urine Blood Urine Nitrite Ur Leukocyte Esterase COVID-19 ([facility]) Negative COVID-19 Clin Com See Note Blood Type Antibody Screen 10/28/20 10/28/20 10/28/20 11:04 11:04 14:07 WBC RBC Hgb Hct MCV MCH MCHC RDW Plt Count MPV Immature Gran % (Auto) Neut % (Auto) Lymph % (Auto) [place] % (Auto) Eos % (Auto) Baso % (Auto) Lymph # (Auto) [place] # (Auto) Eos # (Auto) Baso # (Auto) Abs Immat Gran (auto) Absolute Neuts (auto) Absolute Nucleated RBC Nucleated RBC % (auto) PT 13.8 H INR 1.2 H APTT 32.0 Sodium Potassium Chloride Carbon Dioxide Anion Gap BUN Creatinine Estim Creat Clear Calc Estimated GFR Random Glucose Calcium Magnesium Total Bilirubin Direct Bilirubin AST ALT Alkaline Phosphatase Total Protein Albumin Lipase Urine Color YELLOW Urine Appearance CLEAR Urine pH 6.0 Ur Specific [place] 1.010 Urine Protein NEG Urine Glucose (UA) NEG Urine Ketones NEG Urine Blood NEG Urine Nitrite NEG Ur Leukocyte Esterase NEG COVID-19 ([facility]) COVID-19 Clin Com Blood Type O Positive Antibody Screen NEGATIVE 10/29/20 10/29/20 06:03 06:03 WBC 9.1 RBC 4.44 L Hgb 12.5 L Hct 36.9 L MCV 83.1 MCH 28.2 MCHC 33.9 RDW 13.5 Plt Count 185 MPV 11.5 Immature Gran % (Auto) 0.6 H Neut % (Auto) 76.9 H Lymph % (Auto) 9.4 L [place] % (Auto) 11.6 H Eos % (Auto) 1.1 Baso % (Auto) 0.4 Lymph # (Auto) 0.9 L [place] # (Auto) 1.1 Eos # (Auto) 0.1 Baso # (Auto) 0.0 Abs Immat Gran (auto) 0.05 H Absolute Neuts (auto) 7.0 Absolute Nucleated RBC 0.000 Nucleated RBC % (auto) 0.0 PT INR APTT Sodium 139 Potassium 2.9 L Chloride 101 Carbon Dioxide 29 Anion Gap 12 BUN 9 Creatinine 0.97 Estim Creat Clear Calc 145.2 Estimated GFR > 60 Random Glucose 123 H Calcium 7.8 L D Magnesium Total Bilirubin Direct Bilirubin AST ALT Alkaline Phosphatase Total Protein Albumin Lipase Urine Color Urine Appearance Urine pH Ur Specific [place] Urine Protein Urine Glucose (UA) Urine Ketones Urine Blood Urine Nitrite Ur Leukocyte Esterase COVID-19 ([facility]DRA) COVID-19 Clin Com Blood Type Antibody Screen Airway Mallampati Class: IV TM Dist: >3cm Neck ROM: Full Loose/Missing/Broken Teeth: Yes and Lower Heart: RRR Lungs: CTA
--- NOTE | 2020-10-29 10:14 | W.PM.OPN ---
Operative Note Operative Note Date of Service: 10/29/20 Narrative: Preoperative diagnosis: Acute appendicitis Postoperative diagnosis: Same Procedure: Laparoscopic appendectomy Surgeon: Russ Delong MD Customer Service Cashier: No physician Anesthesia: General endotracheal Indications for procedure: 40-year-old male patient with complaints of abdominal pain in the right lower quadrant found to have a normal WBC and mildly inflamed appendix. He was treated non operatively overnight but continues to have abdominal pain without improvement. Operative findings:Acute appendicitis located lateral to the cecum without perforation or abscess. Specimen:Appendix Estimated blood loss:10 mls Complications: none Procedure details: Patient was brought to the OR and placed in a supine position. After administering general anesthesia the patient's abdomen was prepped with ChloraPrep and draped in a sterile fashion. A surgical time-out was called and consent confirmed. Patient received preoperative antibiotics and Venodyne boots were in place. Local anesthesia consisting of 0.25% Sensorcaine with epinephrine was infiltrated in periumbilical region. A 5 mm incision was made below the umbilicus and carried down through subcutaneous tissue. A Veress needle was then inserted while elevating abdominal cavity with towel clips. After a positive drop test the abdomen was insufflated to a pressure of 15 mm of mercury. The Veress needle was removed and a 5 mm trocar inserted. The camera was then inserted in the abdomen explored. A 2nd 5 mm trocars placed in the lower midline. A 12 mm trocar was then placed in the left lower quadrant. The patient was then placed in a Trendelenburg position and rotated to the left. The appendix was identified in the right lower quadrant and brought up using blunt dissecting clamps. The mesentery of the appendix was then divided using the LigaSure. The appendiceal artery was cauterized and divided using the LigaSure. Dissection was continued down to the base of the cecum. An Endo-ESTHER stapler with a purple reload was then used to divide the appendix at the base with the cecum. The appendix was then placed in Endo-Catch bag and brought out through the left lower quadrant incision. The abdomen was then irrigated with saline solution and suctioned dry. Wounds were checked for hemostasis. CO2 was then evacuated from the abdominal cavity and all trocars removed. Fascia was closed in the left lower quadrant incision using a [id number] Polysorb suture. Skin was closed at all incisions using a subcuticular 4-0 Polysorb suture. Surgical glue was applied to all three incisions. The patient tolerated the procedure well. Sponge, instrument, needle counts reported as correct. The patient was transferred to PACU in stable condition.
[2020-10-29] MEDS: fentaNYL citrate/PF 100 MCG/2 ML VIAL 25 MCG IVPUSH ×4 (10:40→11:04)
[2020-10-29] MEDS: oxyCODONE HCl Immed Release 5 MG TABLET PO ×2 (10:43→22:29)
[2020-10-29] MEDS: buPROPion HCl XL 300 MG TAB.ER.24H PO (13:58)
[2020-10-29] MEDS: Gabapentin 600 MG TABLET PO ×2 (13:59→20:04)
[2020-10-29] MEDS: 0.9 % Sodium Chloride Flush 3 ML SYRINGE IVFLUSH (16:32)
[2020-10-29] MEDS: Prazosin HCL 1 MG CAPSULE PO (20:03)
[2020-10-29] MEDS: Sennosides 8.6 MG TABLET PO (20:03)
[2020-10-29] MEDS: traZODone HCL 50 MG TABLET 150 MG PO (20:03)
[2020-10-30 04:00] VITALS: BP 109/62; PULSE 68; RESP 16; TEMP 36.6; O2SAT 97
[2020-10-30] MEDS: 0.9 % Sodium Chloride 1,000 ML 125 ML IVCONT (05:13)
[2020-10-30] MEDS: oxyCODONE HCl Immed Release 5 MG TABLET PO (05:16)
[2020-10-30] MEDS: Omeprazole 20 MG CAPSULE.DR PO (05:16)
--- NOTE | 2020-10-30 07:38 | P.PNGS_ITS ---
Subjective Subjective Date of Service: 10/30/20 Interval history: Patient feels much improved this morning, tolerating regular diet without nausea or vomiting. He feels ready for discharge to home. Pain is well controlled with oral pain medications. Physical Exam Vital Signs: Vital Signs: Last Vital Signs Temp 97.8 F 10/30/20 04:00 Pulse 68 10/30/20 04:00 Resp 16 10/30/20 04:00 BP 109/62 10/30/20 04:00 Pulse Ox 97 10/30/20 04:00 Body Mass Index 40.2 Const: General: no acute distress Orientation/consciousness: patient oriented x3 Resp: Effort & Inspection: normal respiratory effort GI: Other: Laparoscopic incisions are clean, dry, and intact. Palpation (GI): Soft to palpation, no guarding and not rigid Auscultation: normal bowel sounds Skin: Other: Warm, dry, no rash Neuro: General: patient oriented x3 Extrem: Other: No edema Progress Note: A&P Assessment and plan (1) Acute appendicitis: Status: Acute Assessment and Plan: 40-year-old male patient with diagnosis of acute appendicitis status post laparoscopic appendectomy. He tolerated procedure well and his wounds are healing nicely. He is tolerating regular diet without nausea or vomiting. He will be discharged to home with follow-up in the office in approximately 1 week. He was instructed to avoid lifting greater than 10 lb for the next 2 weeks. He may resume a regular diet. He should call the office for fever, chills, nausea, or vomiting. Fall Risk Details Current Medications: Current Medications Generic Name Dose Route Start Last Admin Trade Name Freq PRN Reason Stop Dose Admin Atenolol 50 mg 10/30/20 09:00 Atenolol 50 Mg Tablet PO DAILY DAISY Bupropion HCl 300 mg 10/29/20 10:34 10/29/20 13:58 Bupropion Hcl Xl 300 Mg Tab.Er.24h PO 300 mg DAILY DAISY Administration Clonazepam 1 mg 10/29/20 10:34 Clonazepam 1 Mg Tablet PO BID PRN Anxiety Ergocalciferol 1,250 mcg 11/04/20 10:00 Ergocalciferol (Vitamin D2) 1,250 Mcg Capsule PO Sa@1000 DAISY Gabapentin 600 mg 10/29/20 15:00 10/29/20 20:04 Gabapentin 600 Mg Tablet PO 600 mg TID DAISY Administration Sodium Chloride 1,000 mls @ 125 mls/hr 10/28/20 10:30 10/30/20 05:13 Ns IVCONT 125 mls/hr .Q8H DAISY Administration Acetaminophen 1,000 mg in 100 mls @ 400 mls/hr 10/28/20 22:00 10/30/20 05:37 Ofirmev IV Infused Q6H DAISY Infusion Morphine Sulfate 4 mg 10/28/20 23:08 10/29/20 04:50 Morphine Sulfate 4 Mg/Ml Cartridge IVPUSH 4 mg Q2H PRN Administration Pain, Severe (Pain Scale 7-10) Omeprazole 20 mg 10/30/20 06:30 10/30/20 05:16 Omeprazole 20 Mg Capsule. PO 20 mg DAILY@0630 DAISY Administration Ondansetron HCl 4 mg 10/28/20 12:26 Ondansetron Hcl 4 Mg/2 Ml Vial IVPUSH Q8H PRN Nausea and Vomiting Oxycodone HCl 5 mg 10/28/20 12:26 10/30/20 05:16 Oxycodone Hcl Immed Release 5 Mg Tablet PO 5 mg Q6H PRN Administration Pain, Moderate (Pain Scale 4-6 Pharmacy Consult 1 each 10/28/20 10:24 Consult Rx Perform Med Rec MISCELLANE ONCE PRN Consult order Prazosin HCl 1 mg 10/29/20 21:00 10/29/20 20:03 Prazosin Hcl 1 Mg Capsule PO 1 mg BEDTIME DAISY Administration Protocol Senna 8.6 mg 10/29/20 21:00 10/29/20 20:03 Sennosides 8.6 Mg Tablet PO 8.6 mg BEDTIME DAISY Administration Sodium Chloride 3 ml 10/28/20 16:00 10/29/20 22:31 0.9 % Sodium Chloride Flush 3 Ml Syringe IVFLUSH Not Given QSHIFT DAISY Trazodone HCl 150 mg 10/29/20 21:00 10/29/20 20:03 Trazodone Hcl 50 Mg Tablet PO 150 mg BEDTIME DAISY Administration Zolpidem Tartrate 5 mg 10/28/20 12:26 Zolpidem Tartrate 5 Mg Tablet PO BEDTIME PRN Insomnia Time Spent With Patient Time: Total time spent is greater than 50% in coordination of care (as docum ented) at patient's floor/unit and/or counseling patient: Time with patient: 15 - 24 minutes Procedures Date of Service Date of Service: 10/30/20 Quality Stroke Does the patient have a stroke diagnosis?: No VTE Prior VTE?: No VTE Risk Level:: Surgical - low VTE Device Contraindication: N/A - Device Ordered VTE Drug Contraindication: Treatment Not Indicated
--- NOTE | 2020-10-30 07:38 | PM.DS ---
DS: Providers Provider Date of Service: 10/30/20 Date of admission: 10/28/20 12:26 Date of discharge: 10/30/20 Primary care physician: Unknown Physician Admitting clinician: Russ Delong Discharging clinician: Russ Delong DS: Diagnosis Discharge Diagnosis (1) Acute appendicitis: Status: Acute DS: Medications Discharge Medications Home Medications: Home Medications Medication Instructions Recorded Confirmed atenolol 50 mg-chlorthalidone 25 1 tab PO DAILY 10/25/20 10/28/20 mg tablet bupropion HCl 300 mg 24 hr tablet, 300 mg PO QAM 10/25/20 10/28/20 extended release clonazepam 1 mg tablet 1 mg PO BID PRN 10/25/20 10/28/20 ergocalciferol (vitamin D2) 1,250 1,250 mcg PO QWEEK 10/25/20 10/28/20 mcg (50,000 unit) capsule gabapentin 600 mg tablet 600 mg PO TID 10/25/20 10/28/20 nabumetone 750 mg tablet 750 mg PO BID 10/25/20 10/28/20 oxycodone-acetaminophen 5 mg-325 1 tab PO TID PRN 10/25/20 10/28/20 mg tablet prazosin 1 mg capsule 1 mg PO BEDTIME 10/25/20 10/28/20 trazodone 100 mg tablet 150 mg PO BEDTIME 10/25/20 10/29/20 Previous Rx's Medication Instructions Recorded omeprazole 20 mg capsule,delayed 20 mg PO DAILY #60 cap 03/28/20 release sennosides 8.6 mg tablet 8.6 mg PO BEDTIME #30 tab 10/25/20 oxycodone 5 mg PO Q6H PRN #14 tab 10/30/20 DS: Summary Hospital Course Hospital Course: Marino Fine is a 40 year old male with a previous history of diverticulitis presenting with complaints of abdominal pain diffusely in the lower abdomen since Friday. Pain is associated with anorexia, nausea, vomiting, and diarrhea. Pain feels different than his usual diverticulitis symptoms. When the pain became more severe he presented to the emergency department for further evaluation. Evaluation in the ED revealed diffuse tenderness especially in the lower abdomen. Laboratories revealed normal WBC however CT revealed mild thickening of the appendix with no surrounding fluid, suggestive of early appendicitis. He is being admitted for management of this early appendicitis on examination the patient had some tenderness in the right lower quadrant with localized rebound without guarding or rigidity. We discussed either immediate laparoscopic or possible open appendectomy verses a trial of IV antibiotics. As the CT appear to be early appendicitis in the WBC was normal, a trial of IV antibiotics with Zosyn was trialed. On the 2nd hospital day however the patient continued to have tenderness 8 to 10/10 without significant improvement with the antibiotics. Decision was made to proceed to a laparoscopic appendectomy. He was taken to the OR on 10/29/2020 for a laparoscopic appendectomy. Operative findings were suggestive of acute appendicitis without perforation. He tolerated the procedure well and was transferred to recovery room without issue. He remained hemodynamically stable. Postoperatively he was started on a regular diet and tolerated this without nausea or vomiting. He reported his pain controlled with oral pain medication. Evaluation on the 3rd hospital day revealed his incisions to be clean, dry, intact without evidence of hernia or redness. He is discharged home on 10/30/2020. He should avoid lifting greater than 10 lb for the next 2 weeks. He may resume a regular diet without restrictions. I have asked him to return to my office in approximately 1 week for wound check. He should call sooner for any concerns. Time Spent with Patient Time attestation: Total time spent providing and/or coordinating discharge services: Discharge coordination time: Less than 30 minutes Quality: Stroke Does the patient have a stroke diagnosis?: No Physical Exam Vital Signs: Vital Signs: Last Vital Signs Temp 97.8 F 10/30/20 04:00 Pulse 68 10/30/20 04:00 Resp 16 10/30/20 04:00 BP 109/62 10/30/20 04:00 Pulse Ox 97 10/30/20 04:00 Body Mass Index 40.2 Const: General: comfortable and no acute distress Resp: Effort & Inspection: normal respiratory effort GI: Other: Incisions are clean, dry, intact without redness or discharge Skin: Other: warm, dry, no rash Extrem: General: Yes no clubbing, cyanosis or edema DS: Data Data Completed and Pending Pending studies at discharge: Pending at discharge 10/29/20 09:59 Surgical [PTH] Routine Discharge Plan Discharge Patient Disposition: Home, Self-Care Discharge Diagnosis: Acute appendicitis Referrals: Russ Delong MD [Physician] - 1 Week Physician,Unknown [Primary Care Provider] - 1 Week Discharge Medications: New oxycodone 5 mg tablet 5 mg PO Q6H PRN (Reason: pain) Qty: 14 RF: 0 Continued omeprazole 20 mg capsule,delayed release(DR/EC) 20 mg PO DAILY Qty: 60 RF: 3 oxycodone-acetaminophen 5-325 mg tablet 1 tab PO TID PRN (Reason: Pain) RF: 0 bupropion HCl 300 mg tablet extended release 24 hr 300 mg PO QAM RF: 0 trazodone 100 mg tablet 150 mg PO BEDTIME RF: 0 nabumetone 750 mg tablet 750 mg PO BID RF: 0 gabapentin 600 mg tablet 600 mg PO TID RF: 0 ergocalciferol (vitamin D2) 1,250 mcg (50,000 unit) capsule 1,250 mcg PO QWEEK RF: 0 clonazepam 1 mg tablet 1 mg PO BID PRN (Reason: Anxiety) RF: 0 atenolol-chlorthalidone 50-25 mg tablet 1 tab PO DAILY RF: 0 prazosin 1 mg capsule 1 mg PO BEDTIME RF: 0 sennosides [senna] 8.6 mg tablet 8.6 mg PO BEDTIME Qty: 30 RF: 6 Discharge Orders: Discharge Order (Routine); Ordered 10/30/20 Ordered By: Russ Delong Diet: advance to usual diet Activity on Discharge: No heavy lifting Stand Alone Forms: Patient Portal Discharge page Activity Restrictions/Additional Instructions: No lifting > 10 pounds for 2 weeks No driving for one week Follow up in office in one week. Care Plan Goals: Return to normal activity and diet Health Concerns: Abdominal pain in the right lower quadrant Plan of Treatment: Laparoscopic appendectomy Assessment: Acute appendicitis
[2020-10-30 07:44] VITALS: BP 108/67; PULSE 75; RESP 18; TEMP 36.2; O2SAT 94
[2020-10-30 08:25] VITALS: BP 108/67; PULSE 75
[2020-10-30] MEDS: buPROPion HCl XL 300 MG TAB.ER.24H PO (08:25)
[2020-10-30] MEDS: atenoloL 50 MG TABLET PO (08:25)
[2020-10-30] MEDS: Gabapentin 600 MG TABLET PO (08:25)
--- NOTE | 2020-10-30 08:54 | MHC.CM.PN ---
nurse care management note electronic medical record reviewed along with case discussed with staff nurse, patient will be discharged home today no services transportation family pcp patient to call for post hospital discharge - follow up
--- NOTE | 2020-10-30 14:21 | HO.POSTANES ---
Post Anesthesia Evaluation Post Anesthesia Evaluation Vital Signs: Vital Signs Temp Pulse Resp BP Pulse Ox 10/30/20 08:25 75 108/67 10/30/20 07:44 97.2 F 75 18 108/67 94 10/30/20 04:00 97.8 F 68 16 109/62 97 Anesthesia: General Endotracheal-GETA Mental Status: Awake Pain Control: Satisfactory Nausea/Vomiting: None Hydration: Adequate Anesthesia-Related Issues: No Anes. Related Issues
== END 2020-10-30 09:27 | disposition home or self-care (01) ==
LOC: HO.ED 10:31 → HO.EDOVER 13:28 → HO.S3 17:07
PROVIDERS: Admitting Provider Surgery; Emergency Provider Emergency Medicine; PCP Internal Medicine Geriatric Medicine; Visit Provider Surgery
PROC: 0DTJ4ZZ Resection of Appendix, Percutaneous Endoscopic Approach (ICD-10-PCS; CPT 44970; principal; 2020-10-29 07:50)
DX: K35.80 Unspecified acute appendicitis (principal); Z88.8 Allergy status to other drugs, medicaments and biological substances; Z79.899 Other long term (current) drug therapy
CPT/HCPCS: 44970; 36415; 74177; 80048; 80076; 81003; 83690; 83735; 85025; 85610; 85730; 86850; 86900; 86901; 87635; 88304; 96361; 96365; 96375; 96376; 99024; 99218; 99285; J0131; J1100; J1170; J1885; J2250; J2270; J2405; J2543; J3010; Q9967

== ENCOUNTER → 2020-11-07 10:16 | Outpatient (BNVA) | payer OTHER, SELFPAY | PROVIDERS: PCP Internal Medicine Geriatric Medicine; Referring Provider Internal Medicine Geriatric Medicine; Visit Provider Surgery | DX: Z48.815 Encounter for surgical aftercare following surgery on the digestive system (principal); Z90.49 Acquired absence of other specified parts of digestive tract | CPT/HCPCS: 99212 ==

== ENCOUNTER 2020-11-15 08:46 | Outpatient (REF) | payer OTHER, SELFPAY | END 2020-11-15 08:47 | disposition home or self-care (01) | LOC: HO.MRI 08:46 | PROVIDERS: PCP Internal Medicine Geriatric Medicine; Visit Provider Internal Medicine Geriatric Medicine | DX: Z13.89 Encounter for screening for other disorder (principal) ==

== ENCOUNTER 2020-11-20 10:27 | Outpatient (REF) | payer OTHER, SELFPAY ==
--- NOTE | ~2020-11-20 | US_ITS ---
EXAMINATION: US ABDOMEN COMPLETE CLINICAL INFORMATION: Left upper quadrant tenderness, lower abdomen pain after appendectomy. COMPARISON: CT abdomen and pelvis with contrast dated 10/28/2020 TECHNIQUE: Real-time imaging of the abdominal viscera. FINDINGS: PANCREAS: Normal. ABDOMINAL AORTA: The proximal, mid, and distal segments are normal in caliber. INFERIOR VENA CAVA: Visualized portions are normal. LIVER: The liver is enlarged measuring 19.6 cm in length. The liver contour is normal. There is diffuse increased echogenicity with focal fatty sparing adjacent to the gallbladder. No focal hepatic lesion. There is no intrahepatic biliary duct dilatation seen. GALLBLADDER: Normal. The gallbladder is physiologically distended without evidence of stones, sludge, polyps, wall thickening, or pericholecystic fluid. COMMON BILE DUCT: Normal in caliber measuring 0.19 cm in diameter. RIGHT KIDNEY: Normal. No hydronephrosis. No renal calculi or focal parenchymal lesions. The kidney measures 13.0 cm in maximum dimension. LEFT KIDNEY: Normal. No hydronephrosis. No renal calculi or focal parenchymal lesions. The kidney measures 13.2 cm in maximum dimension. SPLEEN: Normal. The spleen measures 11.7 cm in maximum dimension. FREE FLUID: None. Imaging through the lower abdomen and in the surgical site along the right lower quadrant reveals no mass or fluid collection. There is peristaltic bowel visualized. US/US abdomen complete IMPRESSION: Diffuse hepatic steatosis with areas of focal fatty sparing adjacent to the gallbladder. Mild hepatomegaly. The rest of the abdominal ultrasound is unremarkable. Especially no mass or fluid collection seen in the lower abdomen.
== END 2020-11-20 10:28 | disposition home or self-care (01) ==
LOC: HO.HMGCX 10:27
PROVIDERS: PCP Internal Medicine Geriatric Medicine; Visit Provider Nurse Practitioner Primary Care
DX: R10.12 Left upper quadrant pain (principal); R10.30 Lower abdominal pain, unspecified; Z90.49 Acquired absence of other specified parts of digestive tract
CPT/HCPCS: 76700

== ENCOUNTER 2021-01-01 10:08 | Day surgery (SDC) | payer OTHER, SELFPAY ==
--- NOTE | 2020-12-28 14:52 | P.CONAN_ITS ---
Documented by User: Diana Smith NP 12/28/20 14:55 HPI - Anesthesia Eval Consult details Narrative: 40yo M for Upper Endoscopy Last K = 2.9, recheck DOS s/p lap appy 10/2020 with GA-ETT 7.5 PMFSH Active Problems Active Problems: All Active Problems (Updated 11/02/20 @ 00:03 by Priscila Castano) Chronic constipation (Acute) GERD (gastroesophageal reflux disease) (Acute) Past Medical History Medical History Anxiety Depression GERD (gastroesophageal reflux disease) HTN (hypertension) Family History Family History Father History of dementia Mother Family history of high blood pressure Surgical History Surgical History (Updated 12/26/20 @ 16:14 by Kacy Anne RN) History of back surgery History of colonoscopy S/P laparoscopic appendectomy Social History Social History Household Members Other:: Alcohol intake: never Patient Tobacco Use Status: Former Tobacco user Advance Directives: No Advance Directives Information Provided: Yes service: No Current occupational status: unemployed Meds Allergies Allergy/AdvReac Type Severity Reaction Status Date / Time tramadol [TRAMADOL] AdvReac Intermediate HTN Verified 12/26/20 16:08 Bleach Allergy Mild Abdominal Uncoded 12/26/20 16:08 Pain Home Medications Medication Instructions Recorded Confirmed Last Taken Type atenolol 50 mg-chlorthalidone 25 1 tab PO DAILY 10/25/20 12/26/20 Unknown History mg tablet bupropion HCl 300 mg 24 hr tablet, 300 mg PO QAM 10/25/20 12/26/20 Unknown History extended release clonazepam 1 mg tablet 1 mg PO BID PRN 10/25/20 12/26/20 Unknown History ergocalciferol (vitamin D2) 1,250 1,250 mcg PO QWEEK 10/25/20 12/26/20 Unknown History mcg (50,000 unit) capsule gabapentin 600 mg tablet 600 mg PO TID 10/25/20 12/26/20 Unknown History nabumetone 750 mg tablet 750 mg PO BID 10/25/20 12/26/20 Unknown History oxycodone-acetaminophen 5 mg-325 1 tab PO TID PRN 10/25/20 12/26/20 Unknown History mg tablet prazosin 1 mg capsule 1 mg PO BEDTIME 10/25/20 12/26/20 Unknown History trazodone 100 mg tablet 150 mg PO BEDTIME 10/25/20 12/26/20 Unknown History fluticasone propionate 50 2 spray INTRANASAL DAILY 12/26/20 12/26/20 Unknown History mcg/actuation nasal spray,suspension Exam Exam Date and Time: December 28, 2020 1452 Pertinent Lab Results Pertinent Lab Results: Laboratory Tests 10/29/20 10/29/20 06:03 06:03 WBC 9.1 Hgb 12.5 L Hct 36.9 L Plt Count 185 Carbon Dioxide 29 BUN 9 Creatinine 0.97 Narrative Narrative: EKG 07/2020 Vent. Rate : 069 BPM ? ? Atrial Rate : 069 BPM ?? P-R Int : 144 ms? QRS Dur : 096 ms ? ? QT Int : 410 ms ? ? ? P-R-T Axes : 012 002 000 degrees ?? QTc Int : 439 ms ? Normal sinus rhythm Moderate voltage criteria for LVH, may be normal variant Borderline ECG When compared with ECG of 05-NOV-2018 15:18, No significant change was found ? Assessment and Plan Assessment Anesthesia Assessment: Chart Reviewed Documented by User: Tuyet Ma MD 01/01/21 10:33 [facility] Past Medical History Medical History Anxiety Depression GERD (gastroesophageal reflux disease) HTN (hypertension) Family History Family History Father History of dementia Mother Family history of high blood pressure Surgical History Surgical History (Updated 12/26/20 @ 16:14 by Kacy Anne RN) History of back surgery History of colonoscopy S/P laparoscopic appendectomy Social History Social History Household Members Other:: Alcohol intake: never Patient Tobacco Use Status: Former Tobacco user Advance Directives: No Advance Directives Information Provided: Yes service: No Current occupational status: unemployed Meds Allergies Allergy/AdvReac Type Severity Reaction Status Date / Time tramadol [TRAMADOL] AdvReac Intermediate HTN Verified 12/26/20 16:08 Bleach Allergy Mild Abdominal Uncoded 12/26/20 16:08 Pain Home Medications Medication Instructions Recorded Confirmed Last Taken Type atenolol 50 mg-chlorthalidone 25 1 tab PO DAILY 10/25/20 12/26/20 Unknown History mg tablet bupropion HCl 300 mg 24 hr tablet, 300 mg PO QAM 10/25/20 12/26/20 Unknown History extended release clonazepam 1 mg tablet 1 mg PO BID PRN 10/25/20 12/26/20 Unknown History ergocalciferol (vitamin D2) 1,250 1,250 mcg PO QWEEK 10/25/20 12/26/20 Unknown History mcg (50,000 unit) capsule gabapentin 600 mg tablet 600 mg PO TID 10/25/20 12/26/20 Unknown History nabumetone 750 mg tablet 750 mg PO BID 10/25/20 12/26/20 Unknown History oxycodone-acetaminophen 5 mg-325 1 tab PO TID PRN 10/25/20 12/26/20 Unknown History mg tablet prazosin 1 mg capsule 1 mg PO BEDTIME 10/25/20 12/26/20 Unknown History trazodone 100 mg tablet 150 mg PO BEDTIME 10/25/20 12/26/20 Unknown History fluticasone propionate 50 2 spray INTRANASAL DAILY 12/26/20 12/26/20 Unknown History mcg/actuation nasal spray,suspension Exam Airway Mallampati Class: III (Missing 2 lower front teeth) TM Dist: >3cm Neck ROM: Full Heart: rrr Lungs: cta
[2021-01-01 10:20] VITALS: BP 143/99; RESP 16; TEMP 36.6; O2SAT 98; BMI 39.3
--- NOTE | 2021-01-01 10:36 | MHC.SHP ---
Pre-Procedural Eval Section A Date of Service: 01/01/21 Section B Chief Complaint: GERD Relevant Family History (Specify if Yes): No Relevant Social History: None Present Medications: see Short Stay Collaborative assessment Medical History: Significant History (Anxiety Depression GERD (gastroesophageal reflux disease) HTN (hypertension)) History of Previous Operations: Relevant previous surgery/procedure and date(s) (History of back surgery History of colonoscopy S/P laparoscopic appendectomy) Allergies: Allergies Allergy/AdvReac Type Severity Reaction Status Date / Time tramadol [TRAMADOL] AdvReac Intermediate HTN Verified 12/26/20 16:08 Bleach Allergy Mild Abdominal Uncoded 12/26/20 16:08 Pain Review of Systems Sugical H&P ROS: Negative: Constitution, Cardiovascular, Respiratory, Neurological, Psychiatric, Hem-Onc, Allergic/Immunologic, Gastrointestinal, Genitourinary, Musculoskeletal, Integumentary, Endocrine and Eyes/Ears/Nose/Throat Exam Surgical H&P Exam: Normal: HEENT, Normal: Heart, Normal: Lungs, Normal: Extremities, Normal: Abdomen, Normal: Skin and Normal: Neurological Plan Diagnosis/Plan: Unchanged I have reviewed the history and physical and performed a pertinent physical examination on my patient. No changes have occurred unless specified.
--- NOTE | 2021-01-01 10:38 | PM.OP ---
Brief Operative Note Date of Service: 01/01/21 Pre-op diagnosis: GERD Post-op diagnosis: same Procedure: see op note Surgeon: Sin Duckworth MD Anesthesia: MAC Was an Cash Applications Representative used for this Procedure?: No Estimated blood loss (mL): 0 Condition: stable Disposition: PACU
--- NOTE | 2021-01-01 10:39 | W.PM.OPN ---
Operative Note Operative Note Date of Service: 01/01/21 Narrative: Procedure Description: EGD FLEXIBLE TRANSORAL UPPER GASTROINTESTINAL ENDOSCOPY UPPER ENDOSCOPY Consent: Indications for the procedure and potential complications of bleeding, perforation, reaction to medications and missed diagnosis were discussed with the patient and informed consent was obtained. Instrument: Olympus GIF H 190 J mid size upper endoscope Monitoring: Vital signs and clinical assessment, continuous EKG monitoring, Pulse oximetry, Carbon Dioxide monitoring and blood pressure monitoring were done throughout the procedure. Procedure: The patient was placed in the left lateral decubitis position and pre-procedure medications were administered and a bite block was placed. The endoscope was inserted into the mouth and advanced under direct vision to the third part of duodenum. A careful inspection was made as the upper endoscope was withdrawn including a retroflexed examination of the proximal stomach; Findings and interventions are described below. Findings: Larynx:normal Esophagus: GE junction at 40 cm, diaphragm hiatus at 40 cm, mild esophagitis at GEJ, random esophagus bx taken. Stomach: Patchy gastric erythema with erosions and x 4 sessile polypoid lesions at antrum 10-12 mm in size. One of these lesion was pushing into the gastric outlet. Biopsies were obtained and the polyps removed with cold snare. Grade 2 flap valve on retroflexed examination of the cardia. Duodenum: Normal bulb and descending duodenum, bx taken Intervention: Biopsies as noted above, polypectomy with cold snare Impression/Findings: gastric polyps gastritis and erosions esophagitis PLAN: await results, if h pylori pos then treat if hyperplastic polyps will need repeat EGD in 6-12 months cont with PPI for the moment
[2021-01-01 10:45] LABS: Anion Gap 12 (12-20); Carbon Dioxide 28 mmol/L (22-29); Chloride 105 mmol/L (96-108); Potassium 3.3 mmol/L (3.3-5.1); Sodium 142 mmol/L (135-145)
[2021-01-01 11:14] VITALS: BP 106/60; PULSE 89; RESP 16; TEMP 37; O2SAT 96
[2021-01-01 11:29] VITALS: BP 110/62; PULSE 82; RESP 18; O2SAT 98
[2021-01-01] MEDS: Lactated Ringers 1,000 ML 100 ML IVCONT (11:41)
== END 2021-01-01 12:12 | disposition home or self-care (01) ==
PROVIDERS: Nurse Practitioner; PCP Internal Medicine Geriatric Medicine; Visit Provider Internal Medicine Gastroenterology
PROC: 0DJ08ZZ Inspection of Upper Intestinal Tract, Via Natural or Artificial Opening Endoscopic (ICD-10-PCS; CPT 43235; principal; 2021-01-01 11:40)
DX: K21.00 Gastro-esophageal reflux disease with esophagitis, without bleeding (principal); K29.60 Other gastritis without bleeding; K31.7 Polyp of stomach and duodenum; I10 Essential (primary) hypertension; Z79.899 Other long term (current) drug therapy
CPT/HCPCS: 43251; 36415; 80051; 88305; 88342; J3010

== ENCOUNTER → 2021-05-24 10:50 | Outpatient (BNVA) | payer OTHER, SELFPAY | PROVIDERS: PCP Internal Medicine Geriatric Medicine; Referring Provider Internal Medicine Geriatric Medicine; Visit Provider Physician Assistant | DX: K21.9 Gastro-esophageal reflux disease without esophagitis (principal); K63.5 Polyp of colon; K31.7 Polyp of stomach and duodenum | CPT/HCPCS: 99212 ==

== ENCOUNTER 2021-06-07 09:01 | Outpatient (REF) | payer OTHER, SELFPAY ==
[2021-06-08 13:28] LABS: H Pylori Breath Test Negative (Negative)
== END 2021-06-07 09:02 | disposition home or self-care (01) ==
LOC: CF 09:01
PROVIDERS: Psychiatry & Neurology Psychiatry; Visit Provider Physician Assistant
DX: K31.7 Polyp of stomach and duodenum (principal); K21.9 Gastro-esophageal reflux disease without esophagitis; K59.09 Other constipation; Z11.0 Encounter for screening for intestinal infectious diseases
CPT/HCPCS: 36415; 83013; 99211

== ENCOUNTER → 2021-08-13 10:00 | Outpatient (BNVA) | payer OTHER, SELFPAY | PROVIDERS: PCP Internal Medicine Geriatric Medicine; Referring Provider Internal Medicine Geriatric Medicine; Visit Provider Physician Assistant | DX: K21.9 Gastro-esophageal reflux disease without esophagitis (principal); K59.09 Other constipation | CPT/HCPCS: 99212 ==

== ENCOUNTER → 2022-01-03 10:10 | Outpatient (BNVA) | payer OTHER, SELFPAY | PROVIDERS: PCP Internal Medicine Geriatric Medicine; Visit Provider Physician Assistant | DX: Z01.818 Encounter for other preprocedural examination (principal); K31.7 Polyp of stomach and duodenum; K63.5 Polyp of colon; K59.09 Other constipation; K21.9 Gastro-esophageal reflux disease without esophagitis | CPT/HCPCS: 99212 ==

== ENCOUNTER 2022-04-21 08:00 | Emergency (ER) | payer OTHER, SELFPAY ==
--- NOTE | 2022-04-21 | ECG_ITS ---
Test Reason : CHEST PAIN Blood Pressure : / mmHG Vent. Rate : 088 BPM Atrial Rate : 088 BPM P-R Int : 146 ms QRS Dur : 090 ms QT Int : 372 ms P-R-T Axes : 034 004 002 degrees QTc Int : 450 ms Normal sinus rhythm Normal ECG When compared with ECG of 14-JUL-2020 13:17, No significant change was found Referred By: Generic ED Physician Electronically Signed By:GHAZALA CARDENAS
--- NOTE | ~2022-04-21 | CT_ITS ---
EXAMINATION: CT HEAD WITHOUT CONTRAST CLINICAL INFORMATION: Headache for one week COMPARISON: Head CT December 13, 2020 TECHNIQUE: Contiguous axial imaging was performed from the skull base to vertex without intravenous administration of contrast. This CT examination was performed using dose optimization techniques as appropriate, variously including the following: *Automated exposure control *Adjustment of mA and/or kV according to patient size (this includes techniques or standardized protocols for targeted exams where dose is matched to indication/reason for exam; i.e. extremities or head) *Use of iterative reconstruction technique DLP: 707 mGy-cm FINDINGS: There is no evidence of acute intracranial hemorrhage or territorial infarction. No abnormal mass effect or midline shift is appreciated. Frye-white differentiation is well preserved. No extra-axial fluid collections. The ventricular system and cortical sulci are normal in size. Similar irregularity along the inner table of the left frontal bone anterolaterally. No acute osseous abnormality. The visualized paranasal sinuses and mastoid air cells are well aerated. CT/CT head/brain wo IV con IMPRESSION: No acute intracranial pathology.
--- NOTE | ~2022-04-21 | XR_ITS ---
EXAMINATION: XR CHEST CLINICAL INFORMATION: Chest pain COMPARISON: None TECHNIQUE: Frontal view of the chest was obtained. FINDINGS: The lungs are well-expanded and clear of acute process. The heart size and pulmonary vascularity is normal. No gross bony abnormality seen. XR/XR chest 1V IMPRESSION: Unremarkable chest exam.
[2022-04-21 08:06] VITALS: BP 141/88; PULSE 88; RESP 16; TEMP 36.1; O2SAT 99; BMI 38.0
[2022-04-21 08:15] VITALS: BP 138/80; PULSE 77; RESP 15; TEMP 36.8; O2SAT 100
--- OUTSIDE RECORDS SUMMARY | 2022-04-21 08:27 | XMS_ITS ---
:1980 Author Care Team Providers Name Role Phone MARK MANN MD Primary Care Provider [phone] Allergies Code Code System Name Reaction Severity Status Onset Bleach (Sodium Hives ? Active ? Hypochlorite) ? Rash ? Active ? ? Respiratory Distress ? Active ? Medications Name Status Start Date Stop Date ? ? atenolol 50 mg-chlorthalidone 25 mg tablet Active ? Not available TK 1 T PO QD atenolol/chlorthalidone 50-25 mg tabs Unknown ? Not available blood pressure monitor 7 series soumya Unknown ? Not available blood pressure test kit-large cuff Unknown ? Not available bupropion HCl SR 150 mg tablet,12 hr sustained-release Active ? Not available bupropion hcl sr 150 mg tb12 Unknown ? Not available clonazepam 1 mg tablet Active ? Not avail able clonazepam 1 mg tabs Unknown ? Not availab le diazepam 5 mg tablet Unknown ? Not availab le diazepam 5 mg tabs Unknown ? Not available famotidine 20 mg tablet Active ? Not avai lable TK 1 T PO BID famotidine 40 mg tablet Active ? Not avai lable Fiber Therapy (methylcellulose) 500 mg tablet Active ? Not available TK 1 T PO D HS gabapentin 300 mg caps Unknown ? Not avail able gabapentin 300 mg capsule Active ? Not av ailable gabapentin 800 mg tablet Unknown ? Not anthony ilable gabapentin 800 mg tabs Unknown ? Not avail able hydrochlorothiazide 25 mg tablet Active ? Not available hydrochlorothiazide 25 mg tabs Unknown ? N ot available loratadine 10 mg tablet Active ? Not avai lable mupirocin 2 % oint Unknown ? Not available mupirocin 2 % topical ointment Unknown ? N ot available naproxen 375 mg tablet Unknown ? Not avail able naproxen 375 mg tabs Unknown ? Not availab le naproxen 500 mg tablet Unknown ? Not avail able oxycodone 10 mg tablet Unknown ? Not avail able oxycodone hcl 10 mg tabs Unknown ? Not anthony ilable oxycodone-acetaminophen 10 mg-325 mg tablet Unknown ? Not available oxycodone-acetaminophen 5 mg-325 mg tablet Active ? Not available oxycodone/acetaminophen 10-325 mg tabs Unknown ? Not available therapeutic moisturizing cream Unknown ? N ot available APPLY AA 3 TO 4 TIMES D tramadol 50 mg tablet Unknown ? Not availa ble venlafaxine ER 150 mg capsule,extended release 24 hr Active ? Not available venlafaxine ER 75 mg capsule,extended release 24 hr Unknown ? Not available TK 1 C PO QD WITH FOOD FOR DEPRESSION venlafaxine hcl er 75 mg cp24 Unknown ? No t available Problems Name Status Onset Date Source ? Lumbosacral Spondylosis without Myelopathy Active ? 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 History Lumbar Post-laminectomy Syndrome Active ? History Lumbosacral Radiculitis Active ? History Procedures Date Name Performed by ? ? Arthroscopic Surgery Information not anthony ilable Notes: Bilateral meniscus repair ? Lumbar Fusion Information not avai lable Notes: X 3 2009 and 2014 Results Lab Results None recorded. Past Encounters None recorded. Social History Tobacco Smoking Status Former Smoker Notes: Quit x 4 years Vaccine List None recorded. Plan of Care Reminders Provider Appointments None recorded. ? ? Lab None recorded. ? ? Referral None recorded. ? ? Procedures None recorded. ? ? Surgeries None recorded. ? ? Imaging None recorded. ? ? Vitals 09/19/2015 11:30AM RETURN Blood Pressure 120/79 mm[Hg] 07/20/2015 10:00AM RETURN Blood Pressure 111/74 mm[Hg] 07/06/2015 02:00PM NEW PATIENT VISIT Height Weight BMI Blood Pressure 5 ft 11 in 269 lbs 37.5 kg/m2 111/71 mm[Hg]
[2022-04-21 08:37] LABS: MANUAL DIFF FLAG NO
[2022-04-21 08:38] LABS: Basophils Percent Auto 0.7 % (0-2); Eosinophils Absolute Auto 0.2 X10*3/uL (0.0-0.4); Eosinophils Percent Auto 2.7 % (0-4); Hematocrit 42.1 % (42.0-52.0); Hemoglobin 14.3 g/dl (14.0-18.0); Imm Gran Abs Auto 0.02 X10*3/uL (0.00-0.03); Imm Gran Pct Auto 0.4 % (0.0-0.4); Lymphocytes Absolute Auto 1.3 X10*3/uL (1.2-4.9); Mean Corpuscular Hemoglobin 27.8 pg (27.0-33.0); Mean Corpuscular Volume 81.7 fL (80.0-98.0); Mean Platelet Volume 11.6 fL (9.4-12.4); Monocytes Absolute Auto 0.7 X10*3/uL (0.1-1.2); Monocytes Percent Auto 11.9 % (2-11); Neutrophils Absolute Auto 3.5 x10*3/uL (2.0-8.3); Neutrophils Percent Auto 61.3 % (45-73); Platelet Count 211 X10*3/uL (160-400); Red Blood Count 5.15 X10*6/uL (4.60-5.80); Red Cell Distribution Width 13.2 % (11.0-16.0); White Blood Count 5.6 X10*3/uL (4.8-10.8)
[2022-04-21 08:44] LABS: INTERNATIONAL NORM RATIO 1.1 (0.9-1.1); Prothrombin Time 12.3 SEC (10.0-13.1)
[2022-04-21 08:46] LABS: Partial Thromboplastin Time 31.5 SEC (26.0-36.4)
[2022-04-21 08:57] LABS: Alanine Aminotransferase 26 U/L (0-40); Albumin Level 4.5 g/dL (3.5-5.0); Alkaline Phosphatase 70 U/L (39-117); Anion Gap 14 (12-20); Aspartate Amino Transferase 21 U/L (5-37); Bilirubin Total 0.6 mg/dL (0.0-1.0); Blood Urea Nitrogen 15 mg/dL (9-16); Calcium 9.2 mg/dL (8.4-10.2); Carbon Dioxide 25 mmol/L (22-29); Chloride 106 mmol/L (96-108); Estimated Glomerular Filt Rate > 60; Glucose Random 111 mg/dL (60-115); Potassium 3.8 mmol/L (3.3-5.1); Sodium 141 mmol/L (135-145); Total Protein 7.5 g/dL (6.5-8.0)
[2022-04-21 09:03] LABS: B Type Natriuretic Peptide < 10 pg/mL (<100); Troponin-I High Sensitivity < 3.5 ng/L (<3.5-35.0)
[2022-04-21 09:28] LABS: COVID-19 Test Negative (Negative); IDNOW Serial# 55D5AD1C
[2022-04-21] MEDS: Acetaminophen 325 MG TABLET 975 MG PO (09:30)
--- NOTE | 2022-04-21 09:51 | ED.CHESTPAIN ---
HPI - Chest Pain General Chief Complaint: Chest Pain Stated Complaint: HBP, CP, headache Time Seen by Provider: 04/21/22 08:13 Source: patient Mode of arrival: ambulatory Limitations: no limitations History of Present Illness HPI narrative: 41 yold male with with past medical history of high blood presents to the ED for headache, and intermittent chest pain for the past week. Patient states over the past week he has noticed muliptle episodes of his diastolic over 100. His systolic has been normal. Patient states being compliant with his high blood pressure medications. Patient denies any slurred speech, facial droop, paralysis of extremities, fever, chills, nausea, vomiting, recent trauma, or loss of vision. Patient states chronic left lower extremity weakness due to back issues and neurostimulator. He states headache does improve with Motrin. Patient denies any pleurisy, shortness of breath, neck swelling, coughing up blood, calf pain, recent long travel, recent surgery, history of blood clots, or any estrogen hormone use. Related Data Home Medications Medication Instructions Recorded Confirmed atenolol 50 mg-chlorthalidone 25 1 tab PO DAILY blood pressure 10/25/20 01/03/22 mg tablet bupropion HCl 300 mg 24 hr tablet, 300 mg PO QAM 10/25/20 01/03/22 extended release clonazepam 1 mg tablet 1 mg PO BID PRN Anxiety 10/25/20 01/03/22 ergocalciferol (vitamin D2) 1,250 1,250 mcg PO QWEEK 10/25/20 01/03/22 mcg (50,000 unit) capsule gabapentin 600 mg tablet 600 mg PO TID 10/25/20 01/03/22 nabumetone 750 mg tablet 750 mg PO BID 10/25/20 01/03/22 oxycodone-acetaminophen 5 mg-325 1 tab PO TID PRN Pain 10/25/20 01/03/22 mg tablet prazosin 1 mg capsule 1 mg PO BEDTIME 10/25/20 01/03/22 trazodone 100 mg tablet 150 mg PO BEDTIME 10/25/20 01/03/22 fluticasone propionate 50 2 spray intranasal DAILY 12/26/20 01/03/22 mcg/actuation nasal spray,suspension amitriptyline 25 mg tablet 25 mg PO BEDTIME 05/24/21 01/03/22 atenolol 50 mg tablet 50 mg PO DAILY 05/24/21 01/03/22 celecoxib 200 mg capsule 200 mg PO DAILY PRN 08/13/21 01/03/22 cholecalciferol (vitamin D3) 50 50 mcg PO DAILY 08/13/21 01/03/22 mcg (2,000 unit) tablet amlodipine 5 mg tablet 5 mg PO DAILY 01/03/22 01/03/22 tizanidine 2 mg tablet 2 mg PO BID PRN 01/03/22 01/03/22 Previous Rx's Medication Instructions Recorded sennosides 8.6 mg tablet (senna) 8.6 mg PO BEDTIME #30 tabs 10/25/20 sucralfate 100 mg/mL oral 10 ml PO QID #3,600 mL 04/16/21 suspension docusate sodium 100 mg capsule 200 mg PO BEDTIME #60 caps 08/13/21 (Colace) methylcellulose (laxative) 500 mg 500 mg PO BID #60 tabs 08/13/21 tablet (Citrucel) polyethylene glycol 3350 17 17 g PO DAILY #510 grams 08/13/21 gram/dose oral powder (Miralax) bisacodyl 5 mg tablet,delayed 10 mg PO ONCE colonoscopy prep 1 01/03/22 release (Dulcolax (bisacodyl)) day #2 tabs polyethylene glycol 3350 17 238 g PO ONCE 1 day #238 grams 01/03/22 gram/dose oral powder (Miralax) omeprazole 20 mg capsule,delayed 20 mg PO DAILY #60 caps 02/21/22 release Allergies Allergy/AdvReac Type Severity Reaction Status Date / Time tramadol [TRAMADOL] AdvReac Intermediate HTN Verified 01/03/22 10:23 Bleach Allergy Mild Abdominal Uncoded 01/03/22 10:23 Pain Review of Systems Review of Systems: improving headache and intermittent chest pain. Yes all other systems are reviewed and are negative PMFSH Past Medical History Medical History Anxiety Colon polyps Depression GERD (gastroesophageal reflux disease) HTN (hypertension) Surgical History History of back surgery History of colonoscopy History of esophagogastroduodenoscopy (EGD) Hx of oral surgery S/P laparoscopic appendectomy Family History Family History Father History of dementia Mother Family history of high blood pressure Social History Social History Household Members Other:: Alcohol intake: never Patient Tobacco Use Status: Former Tobacco user Smoked in Last 30 Days: No Use of substances other than those prescribed or required for medical reasons: No Advance Directives: No Advance Directives Information Provided: Yes service: No Current occupational status: unemployed Physical Exam Vital Signs: Vital Signs: Last Vital Signs Temp 98.3 F 04/21/22 10:41 Pulse 66 04/21/22 10:41 Resp 18 04/21/22 10:41 BP 131/84 04/21/22 10:41 Pulse Ox 98 04/21/22 10:41 O2 Del Method 04/21/22 10:41 BMI result Body Mass Index 38.0 Const: General: cooperative, healthy appearing, comfortable, no acute distress, well developed, alert, awake and Physically active HEENT: Head: Yes normal to inspection, Yes No palpable skull fracture present, Yes normocephalic, Yes atraumatic and No abrasion Eyes: General: appearance normal, both eyes and all related structures Neck: Neck: Yes normal visual inspection, Yes full ROM, Yes no lymphadenopathy, Yes no meningeal signs, Yes trachea midline, Yes supple, No anterior neck swelling and No tender Chest: Chest palpation & inspection: normal inspection of the chest and normal palpation of entire chest wall Resp: Effort & Inspection: normal respiratory effort and able to speak in complete sentences Auscultation: clear to auscultation bilaterally Cardio: Jugular venous distension: no JVD Heart sounds: S1 normal heart sound present and S2 normal heart sound present GI: Inspection: Yes normal to inspection and No abdominal wall ecchymosis Palpation (GI): Soft to palpation, not firm, nontender, no guarding and not rigid : General: No CVA tenderness and Yes no CVA tenderness Back/Spine/Pelvis: Back: no CVA tenderness, No CVA tenderness and No back tenderness Skin: General skin exam: no rashes or lesions noted and elasticity normal Neuro: Other: Negative facial droop. Negative slurred speech. Negative pronator drift. Bilateral upper extremities equal strength. Right lower extremity normal. Left lower extremity weaker than the right which patient states is chronic and not new. Patient states gait is at baseline. Finger to nose rapid hand movement intact. Negative Romberg General: no meningeal signs Extrem: General: Yes normal to inspection and Yes full ROM Psych: Appearance: grossly normal, well kempt and not disheveled Course Course Course Narrative: blood pressure now stable. showed me blood pressure recordings which show multiple readings of diastolic over 100. Due to history of high blood pressure and chest pain for we will do cardiac evaluation. Unlikely stroke NIH score is 0 but will do head CT scan. Patient not in any distress. Patient denies any pleurisy or other signs of DVT or PE. perc score is 0. patient states during evaluation his midsternal intermittent chest pain resolves with his anti acid GERD medication at home. Medications Administered Discontinued Medications Generic Name Dose Route Start Last Admin Trade Name Freq PRN Reason Stop Dose Admin Acetaminophen 975 mg 04/21/22 09:00 04/21/22 09:30 Acetaminophen 325 Mg Tablet PO 04/21/22 09:01 975 mg ONCE ONE Administration Medical Decision Making Medical Decision Making [facility] Narrative: 5-year-old male history of hypertension and GERD presents to the ED for diastolic blood pressure medication, headache, and intermittent midsternal chest pain that resolved after anti acid medication. Cardiac evaluation was done. Findings negative for signs of heart attack or CHF. PERC Score 0. Not suspecting PE. Negative for stroke Differential Diagnosis Differential Diagnoses: The differential diagnosis associated with the presentation includes (Pneumonia. CHF. VT. Stroke) Admission/Observation Admission not considered. Lab Data [facility] Lab Attestation statement: I reviewed the patient's lab results. 04/21/22 08:33 04/21/22 08:33 Labs: Lab Results 04/21/22 04/21/22 04/21/22 Range/Units 08:33 08:33 08:33 WBC 5.6 (4.8-10.8) X10*3/uL RBC 5.15 (4.60-5.80) X10*6/uL Hgb 14.3 (14.0-18.0) g/dl Hct 42.1 (42.0-52.0) % MCV 81.7 (80.0-98.0) fL MCH 27.8 (27.0-33.0) pg MCHC 34.0 (31.0-36.0) g/dl RDW 13.2 (11.0-16.0) % Plt Count 211 (160-400) X10*3/uL MPV 11.6 (9.4-12.4) fL Immature Gran % (Auto) 0.4 (0.0-0.4) % Neut % (Auto) 61.3 (45-73) % Lymph % (Auto) 23.0 (20-40) % [place] % (Auto) 11.9 H (2-11) % Eos % (Auto) 2.7 (0-4) % Baso % (Auto) 0.7 (0-2) % Lymph # (Auto) 1.3 (1.2-4.9) X10*3/uL [place] # (Auto) 0.7 (0.1-1.2) X10*3/uL Eos # (Auto) 0.2 (0.0-0.4) X10*3/uL Baso # (Auto) 0.0 (0.0-0.2) X10*3/uL Abs Immat Gran (auto) 0.02 (0.00-0.03) X10*3/uL Absolute Neuts (auto) 3.5 (2.0-8.3) x10*3/uL Absolute Nucleated RBC 0.000 (0.0-0.012) X10*3/uL Nucleated RBC % (auto) 0.0 (0.0-0.2) /100WBC PT (10.0-13.1) SEC INR (0.9-1.1) APTT (26.0-36.4) SEC Sodium 141 (135-145) mmol/L Potassium 3.8 (3.3-5.1) mmol/L Chloride 106 (96-108) mmol/L Carbon Dioxide 25 (22-29) mmol/L Anion Gap 14 (12-20) BUN 15 (9-16) mg/dL Creatinine 1.09 (0.5-1.4) mg/dL Estim Creat Clear Calc 124.0 Estimated GFR > 60 Random Glucose 111 (60-115) mg/dL Calcium 9.2 D (8.4-10.2) mg/dL Total Bilirubin 0.6 (0.0-1.0) mg/dL AST 21 (5-37) U/L ALT 26 (0-40) U/L Alkaline Phosphatase 70 (39-117) U/L Troponin I High Sens < 3.5 (<3.5-35.0) ng/L B-Natriuretic Peptide (<100) pg/mL Total Protein 7.5 (6.5-8.0) g/dL Albumin 4.5 (3.5-5.0) g/dL COVID-19 ([facility]ANDRA) (Negative) COVID-19 Clin Com 04/21/22 04/21/22 04/21/22 Range/Units 08:33 08:33 09:05 WBC (4.8-10.8) X10*3/uL RBC (4.60-5.80) X10*6/uL Hgb (14.0-18.0) g/dl Hct (42.0-52.0) % MCV (80.0-98.0) fL MCH (27.0-33.0) pg MCHC (31.0-36.0) g/dl RDW (11.0-16.0) % Plt Count (160-400) X10*3/uL MPV (9.4-12.4) fL Immature Gran % (Auto) (0.0-0.4) % Neut % (Auto) (45-73) % Lymph % (Auto) (20-40) % [place] % (Auto) (2-11) % Eos % (Auto) (0-4) % Baso % (Auto) (0-2) % Lymph # (Auto) (1.2-4.9) X10*3/uL [place] # (Auto) (0.1-1.2) X10*3/uL Eos # (Auto) (0.0-0.4) X10*3/uL Baso # (Auto) (0.0-0.2) X10*3/uL Abs Immat Gran (auto) (0.00-0.03) X10*3/uL Absolute Neuts (auto) (2.0-8.3) x10*3/uL Absolute Nucleated RBC (0.0-0.012) X10*3/uL Nucleated RBC % (auto) (0.0-0.2) /100WBC PT 12.3 (10.0-13.1) SEC INR 1.1 (0.9-1.1) APTT 31.5 (26.0-36.4) SEC Sodium (135-145) mmol/L Potassium (3.3-5.1) mmol/L Chloride (96-108) mmol/L Carbon Dioxide (22-29) mmol/L Anion Gap (12-20) BUN (9-16) mg/dL Creatinine (0.5-1.4) mg/dL Estim Creat Clear Calc Estimated GFR Random Glucose (60-115) mg/dL Calcium (8.4-10.2) mg/dL Total Bilirubin (0.0-1.0) mg/dL AST (5-37) U/L ALT (0-40) U/L Alkaline Phosphatase (39-117) U/L Troponin I High Sens (<3.5-35.0) ng/L B-Natriuretic Peptide < 10 (<100) pg/mL Total Protein (6.5-8.0) g/dL Albumin (3.5-5.0) g/dL COVID-19 (SANDRA) Negative (Negative) COVID-19 Clin Com See Note 04/21/22 Range/Units 10:40 WBC (4.8-10.8) X10*3/uL RBC (4.60-5.80) X10*6/uL Hgb (14.0-18.0) g/dl Hct (42.0-52.0) % MCV (80.0-98.0) fL MCH (27.0-33.0) pg MCHC (31.0-36.0) g/dl RDW (11.0-16.0) % Plt Count (160-400) X10*3/uL MPV (9.4-12.4) fL Immature Gran % (Auto) (0.0-0.4) % Neut % (Auto) (45-73) % Lymph % (Auto) (20-40) % [place] % (Auto) (2-11) % Eos % (Auto) (0-4) % Baso % (Auto) (0-2) % Lymph # (Auto) (1.2-4.9) X10*3/uL [place] # (Auto) (0.1-1.2) X10*3/uL Eos # (Auto) (0.0-0.4) X10*3/uL Baso # (Auto) (0.0-0.2) X10*3/uL Abs Immat Gran (auto) (0.00-0.03) X10*3/uL Absolute Neuts (auto) (2.0-8.3) x10*3/uL Absolute Nucleated RBC (0.0-0.012) X10*3/uL Nucleated RBC % (auto) (0.0-0.2) /100WBC PT (10.0-13.1) SEC INR (0.9-1.1) APTT (26.0-36.4) SEC Sodium (135-145) mmol/L Potassium (3.3-5.1) mmol/L Chloride (96-108) mmol/L Carbon Dioxide (22-29) mmol/L Anion Gap (12-20) BUN (9-16) mg/dL Creatinine (0.5-1.4) mg/dL Estim Creat Clear Calc Estimated GFR Random Glucose (60-115) mg/dL Calcium (8.4-10.2) mg/dL Total Bilirubin (0.0-1.0) mg/dL AST (5-37) U/L ALT (0-40) U/L Alkaline Phosphatase (39-117) U/L Troponin I High Sens < 3.5 (<3.5-35.0) ng/L B-Natriuretic Peptide (<100) pg/mL Total Protein (6.5-8.0) g/dL Albumin (3.5-5.0) g/dL COVID-19 ([facility]) (Negative) COVID-19 Clin Com Independent Interpretation I performed an independent interpretation of an: EKG Interpretation: normal sinus rhythm. Normal EKG. Ventricular rate 88. Pr interval 146. Serous 90. QTC 450. Negative STEMI Radiology Impression Discussion of test interpretation with radiology: I have reviewed the radiologist's reading. Radiologist Impression: Chest x-ray and head CT scan. Prescription Management I considered prescription management with: Other patient informed to discuss with primary care provider possible changing high blood pressure medication. Patient also informed to discuss with primary care provider to see if Cardiology referral needed. Chronic Conditions Patient?s care impacted by: Hypertension informed to contact primary care provider to see change in medication needed and for re-evaluation. Scores Additional Scores PERC Score: Score: PER Score is 0. Discharge Plan Discharge Clinical Impression: Hypertension, GERD (gastroesophageal reflux disease), Atypical chest pain Patient Disposition: Home, Self-Care Instructions: Chest Pain (ED), Gastroesophageal Reflux Disease (ED), Hypertension (ED) Additional Instructions: marrero an?lisis de dania, electrocardiograma y radiograf?a de t?rax, tomograf?a computarizada de la elina dieron negativo para signos de ataque card?aco, accidente cerebrovascular, neumon?a o insuficiencia card?carmen. Debe llamar a marrero proveedor de atenci?n primaria para analizar el cambio o el manejo de los medicamentos para la presi?n arterial kevin y natalio si se necesita diana remisi?n a cardiolog?a. Marrero dolor de pecho mejor? con medicamentos anti?cidos en el hogar, probablemente necesitar? un seguimiento con un gastroenter?logo seg?n lo remita marrero proveedor de atenci?n primaria. Regrese al servicio de urgencias de inmediato por cualquier dolor en el pecho, dificultad para respirar, hinchaz?n de las piernas, dolor en la pantorrilla, tos con dania, fiebre, escalofr?os, desmayo, dificultad para hablar, ca?da facial, par?lisis de las extremidades o cualquier otro s?ntoma preocupante. Contin?e tomando neeraj medicamentos anti?cidos y medicamentos para la presi?n arterial. Por favor, david un seguimiento con marrero proveedor de atenci?n primaria. Contin?e registrando los resultados de marrero presi?n arterial en casa para demostrar que es marrero proveedor de atenci?n primaria. Prescriptions: No Action sucralfate 100 mg/mL suspension 10 ml PO QID Qty: 3600 0RF Hold Instructions: Doctor's Order omeprazole 20 mg capsule,delayed release(DR/EC) 20 mg PO DAILY Qty: 60 0RF fluticasone propionate 50 mcg/actuation spray,suspension 2 spray intranasal DAILY oxycodone-acetaminophen 5-325 mg tablet 1 tab PO TID PRN (Reason: Pain) bupropion HCl 300 mg tablet extended release 24 hr 300 mg PO QAM trazodone 100 mg tablet 150 mg PO BEDTIME nabumetone 750 mg tablet 750 mg PO BID gabapentin 600 mg tablet 600 mg PO TID ergocalciferol (vitamin D2) 1,250 mcg (50,000 unit) capsule 1,250 mcg PO QWEEK Rx Instructions: on Fridays clonazepam 1 mg tablet 1 mg PO BID PRN (Reason: Anxiety) atenolol-chlorthalidone 50-25 mg tablet 1 tab PO DAILY prazosin 1 mg capsule 1 mg PO BEDTIME sennosides [senna] 8.6 mg tablet 8.6 mg PO BEDTIME Qty: 30 6RF cholecalciferol (vitamin D3) 50 mcg (2,000 unit) tablet 50 mcg PO DAILY celecoxib 200 mg capsule 200 mg PO DAILY PRN Citrucel 500 mg tablet 500 mg PO BID Qty: 60 5RF polyethylene glycol 3350 [Miralax] 17 gram/dose powder 17 g PO DAILY Qty: 510 2RF docusate sodium [Colace] 100 mg capsule 200 mg PO BEDTIME Qty: 60 5RF amlodipine 5 mg tablet 5 mg PO DAILY tizanidine 2 mg tablet 2 mg PO BID PRN bisacodyl [Dulcolax (bisacodyl)] 5 mg tablet,delayed release (DR/EC) 10 mg PO ONCE 1 Days Qty: 2 0RF Rx Instructions: Take 2 tablets by mouth at 12:00pm the day before your procedure. polyethylene glycol 3350 [Miralax] 17 gram/dose powder 238 g PO ONCE 1 Days Qty: 238 0RF Rx Instructions: Take as directed by mouth the day before your procedure. atenolol 50 mg tablet 50 mg PO DAILY amitriptyline 25 mg tablet 25 mg PO BEDTIME Referrals: Name,MD Juan [Primary Care Provider] - ( elevated diastolic blood pressure. Management of blood pressure. Will need referral to Gastroenterology. At atypical chest pain due to GERD. May need a Cardiology referral.) Interventions: ED Discharge Assessment Last Done: 04/21/22 12:16 Discharge Date/Time: 04/21/22 12:16 Print Language: Bangladeshi
[2022-04-21 10:41] VITALS: BP 131/84; PULSE 66; RESP 18; TEMP 36.8; O2SAT 98
[2022-04-21 11:10] LABS: Troponin-I High Sensitivity < 3.5 ng/L (<3.5-35.0)
== END 2022-04-21 12:16 | disposition home or self-care (01) ==
PROVIDERS: Physician Assistant; Emergency Provider Emergency Medicine Emergency Medical Services; PCP Internal Medicine Geriatric Medicine
DX: R07.89 Other chest pain (principal); K21.9 Gastro-esophageal reflux disease without esophagitis; R51.9 Headache, unspecified; Z20.822 Contact with and (suspected) exposure to COVID-19; Z87.891 Personal history of nicotine dependence; Z79.899 Other long term (current) drug therapy
CPT/HCPCS: 36415; 70450; 71045; 80053; 83880; 84484; 85025; 85610; 85730; 87635; 93005; 99285

== ENCOUNTER 2022-06-02 06:34 | Emergency (ER) | payer OTHER, SELFPAY ==
--- NOTE | ~2022-06-02 | XR_ITS ---
EXAMINATION: XR CHEST CLINICAL INFORMATION: Cough COMPARISON: X-ray 05/03/2022 TECHNIQUE: 2 views of the chest were obtained. FINDINGS: Slightly rotated positioning. Normal heart size. Pulmonary vascularity is within normal limits, stable from previous. There is a hazy opacity seen in the right upper lung. In part this could be related to overlapping densities, related to the right first rib. Airspace opacities in this region cannot be excluded. The remainder the lungs appear clear. No effusion, edema or pneumothorax. XR/XR chest 2V IMPRESSION: Hazy opacity in the right upper lung, could be related to overlapping densities versus airspace disease/infiltrate in this region. Additional radiographs reassessment as clinically warranted. Alternately, recommendation is for a follow-up chest series to be obtained following treatment and/or resolution of symptoms to assure resolution of this appearance.
[2022-06-02 06:37] VITALS: BP 136/79; PULSE 83; RESP 17; TEMP 36.9; O2SAT 96; BMI 38.6
[2022-06-02 07:55] LABS: Influenza A PCR NEGATIVE (Negative); Influenza B PCR NEGATIVE (Negative); Resp Syncy Virus RNA Qual PCR NEGATIVE (Negative); SARS COV2 PCR INHOUSE NEGATIVE (Negative)
--- NOTE | 2022-06-02 08:06 | ED.URI ---
HPI - URI/Sore Throat General Chief Complaint: Upper Respiratory Symptoms Stated Complaint: Body aches, congestion Time Seen by Provider: 06/02/22 07:50 Source: patient Mode of arrival: ambulatory Limitations: no limitations History of Present Illness HPI Narrative: This is 41 years old man presented to the ED complaining of cough body aches for about 4 days. Denies any vomiting and diarrhea any other systemic symptoms MD elicited complaint: cough Onset (ago): day(s) (4) Description of mucous: clear Exacerbating factors: nothing Relieving factors: nothing Related Data Home Medications Medication Instructions Recorded Confirmed bupropion HCl 300 mg 24 hr tablet, 300 mg PO QAM 10/25/20 05/10/22 extended release clonazepam 1 mg tablet 1 mg PO BID PRN Anxiety 10/25/20 05/10/22 ergocalciferol (vitamin D2) 1,250 1,250 mcg PO QWEEK 10/25/20 05/10/22 mcg (50,000 unit) capsule gabapentin 600 mg tablet 600 mg PO TID 10/25/20 05/10/22 nabumetone 750 mg tablet 750 mg PO BID 10/25/20 05/10/22 oxycodone-acetaminophen 5 mg-325 1 tab PO TID PRN Pain 10/25/20 01/03/22 mg tablet prazosin 1 mg capsule 1 mg PO BEDTIME 10/25/20 05/10/22 trazodone 100 mg tablet 150 mg PO BEDTIME 10/25/20 05/10/22 fluticasone propionate 50 2 spray intranasal DAILY 12/26/20 05/10/22 mcg/actuation nasal spray,suspension amitriptyline 25 mg tablet 25 mg PO BEDTIME 05/24/21 05/10/22 atenolol 50 mg tablet 50 mg PO DAILY 05/24/21 05/10/22 celecoxib 200 mg capsule 200 mg PO DAILY PRN Pain 08/13/21 05/10/22 cholecalciferol (vitamin D3) 50 50 mcg PO DAILY 08/13/21 05/10/22 mcg (2,000 unit) tablet amlodipine 5 mg tablet 5 mg PO DAILY 01/03/22 05/10/22 tizanidine 2 mg tablet 2 mg PO BID PRN Muscle Spasm 01/03/22 05/10/22 Previous Rx's Medication Instructions Recorded sennosides 8.6 mg tablet (senna) 8.6 mg PO BEDTIME #30 tabs 10/25/20 sucralfate 100 mg/mL oral 10 ml PO QID #3,600 mL 04/16/21 suspension docusate sodium 100 mg capsule 200 mg PO BEDTIME #60 caps 08/13/21 (Colace) methylcellulose (laxative) 500 mg 500 mg PO BID #60 tabs 08/13/21 tablet (Citrucel) polyethylene glycol 3350 17 17 g PO DAILY #510 grams 08/13/21 gram/dose oral powder (Miralax) bisacodyl 5 mg tablet,delayed 10 mg PO ONCE colonoscopy prep 1 01/03/22 release (Dulcolax (bisacodyl)) day #2 tabs polyethylene glycol 3350 17 238 g PO ONCE 1 day #238 grams 01/03/22 gram/dose oral powder (Miralax) omeprazole 20 mg capsule,delayed 20 mg PO DAILY #60 caps 02/21/22 release benzonatate 100 mg capsule 100 mg PO TID PRN cough #14 caps 06/02/22 doxycycline monohydrate 100 mg 100 mg PO DAILY #20 caps 06/02/22 capsule (Monodox) Allergies Allergy/AdvReac Type Severity Reaction Status Date / Time Bleach (Sodium Hypochlorite) Allergy Mild Abdominal Verified 05/10/22 14:08 Pain tramadol [TRAMADOL] AdvReac Intermediate HTN Verified 01/03/22 10:23 Review of Systems Constitutional: Constitutional: Reports no additional constitutional complaints Respiratory: Respiratory: Reports as per HPI and Reports cough Neurologic: Reports system reviewed and no additional complaints, except as documented [facility] Past Medical History Medical History Anxiety Colon polyps Depression GERD (gastroesophageal reflux disease) HTN (hypertension) Surgical History History of back surgery History of colonoscopy History of esophagogastroduodenoscopy (EGD) Hx of oral surgery S/P laparoscopic appendectomy Family History Family History Father History of dementia Mother Family history of high blood pressure Social History Social History Household Members Other:: Alcohol intake: never Patient Tobacco Use Status: Former Tobacco user Advance Directives: No Advance Directives Information Provided: Yes service: No Current occupational status: unemployed Physical Exam Vital Signs: Vital Signs: Last Vital Signs Temp 98.0 F 06/02/22 09:34 Pulse 81 06/02/22 09:34 Resp 16 06/02/22 09:34 BP 129/84 06/02/22 09:34 Pulse Ox 98 06/02/22 09:34 O2 Del Method 06/02/22 09:34 BMI result Body Mass Index 38.6 Const: General: cooperative, comfortable and no acute distress Nutritional Appearance: average body habitus Orientation/consciousness: patient oriented x3 Limitations: no limitations HEENT: Head: Yes normal to inspection General nose exam: Normal external nose present Face and sinus: Yes normal facial exam Mouth: Normal oral and palatal mucosa present Throat: Yes posterior oropharynx normal Neck: Neck: Yes normal visual inspection Chest: Chest palpation & inspection: normal inspection of the chest Resp: Effort & Inspection: normal respiratory effort Auscultation: clear to auscultation bilaterally Cardio: Jugular venous distension: no JVD Rate: regular rate Rhythm: regular rhythm GI: Inspection: Yes normal to inspection Palpation (GI): Soft to palpation Auscultation: normal bowel sounds Skin: General skin exam: no rashes or lesions noted Lesions: no lesions Rashes: no rashes Nails: normal Neuro: General: patient oriented x3 Extrem: General: Yes normal to inspection Left upper extremity: full ROM Right lower extremity: normal to inspection Course Reevaluation(s) Reevaluation #1: Chest x-ray was read by the Radiology as a possible right upper lobe pneumonia, in the setting of cough and body aches will going to go ahead treated with antibiotic Time: 09:21 Medical Decision Making Medical Decision Making [facility] Narrative: Patient presented with URI symptoms we get the COVID test/will do a chest x-ray as well 9.25 AM chest x-ray read as possible right upper lobe pneumonia week with the treat him with doxy Differential Diagnosis Differential Diagnoses: The differential diagnosis associated with the presentation includes URI/pneumonia/COVID Admission/Observation Consideration of admission/observation: Escalation of care including admission/observation considered Lab Data [facility] Lab Attestation statement: I reviewed the patient's lab results. Labs: Lab Results 06/02/22 Range/Units 07:11 Influenza Type A (PCR) NEGATIVE (Negative) Influenza Type B (PCR) NEGATIVE (Negative) RSV RNA Qual (PCR) NEGATIVE (Negative) SARS-CoV-2 RNA (RT-PCR) NEGATIVE (Negative) Radiology Impression Discussion of test interpretation with radiology: I have reviewed the radiologist's reading. Radiologist Impression: 2 views of the chest were obtained. FINDINGS: Slightly rotated positioning. Normal heart size. Pulmonary vascularity is within normal limits, stable from previous. There is a hazy opacity seen in the right upper lung. In part this could be related to overlapping densities, related to the right first rib. Airspace opacities in this region cannot be excluded. The remainder the lungs appear clear. No effusion, edema or pneumothorax. XR/XR chest 2V IMPRESSION: Hazy opacity in the right upper lung, could be related to overlapping densities versus airspace disease/infiltrate in this region. Additional radiographs reassessment as clinically warranted. Alternately, recommendation is for a follow-up chest series to be obtained following treatment and/or resolution of symptoms to assure resolution of this appearance. Dictated By: Jordan Mojica MD Signed By: <Electronically signed by Jordan Mojica MD in OV> 06/02/22 0821 Discharge Plan Discharge Clinical Impression: Pneumonia Patient Disposition: Home, Self-Care Additional Instructions: The radiology read you chest x-ray as a possible right upper lobe pneumonia, because you coughing your body ache yellow fever we will treat you with antibiotic. Make sure you follow-up with your primary care physician and you will need a follow-up chest x-ray in about 3 or 4 weeks Prescriptions: New doxycycline monohydrate [Monodox] 100 mg capsule 100 mg PO DAILY Qty: 20 0RF benzonatate 100 mg capsule 100 mg PO TID PRN (Reason: cough) Qty: 14 0RF No Action sucralfate 100 mg/mL suspension 10 ml PO QID Qty: 3600 0RF Hold Instructions: Doctor's Order omeprazole 20 mg capsule,delayed release(DR/EC) 20 mg PO DAILY Qty: 60 0RF fluticasone propionate 50 mcg/actuation spray,suspension 2 spray intranasal DAILY oxycodone-acetaminophen 5-325 mg tablet 1 tab PO TID PRN (Reason: Pain) bupropion HCl 300 mg tablet extended release 24 hr 300 mg PO QAM trazodone 100 mg tablet 150 mg PO BEDTIME nabumetone 750 mg tablet 750 mg PO BID gabapentin 600 mg tablet 600 mg PO TID ergocalciferol (vitamin D2) 1,250 mcg (50,000 unit) capsule 1,250 mcg PO QWEEK Rx Instructions: on Fridays clonazepam 1 mg tablet 1 mg PO BID PRN (Reason: Anxiety) prazosin 1 mg capsule 1 mg PO BEDTIME sennosides [senna] 8.6 mg tablet 8.6 mg PO BEDTIME Qty: 30 6RF cholecalciferol (vitamin D3) 50 mcg (2,000 unit) tablet 50 mcg PO DAILY celecoxib 200 mg capsule 200 mg PO DAILY PRN (Reason: Pain) Citrucel 500 mg tablet 500 mg PO BID Qty: 60 5RF polyethylene glycol 3350 [Miralax] 17 gram/dose powder 17 g PO DAILY Qty: 510 2RF docusate sodium [Colace] 100 mg capsule 200 mg PO BEDTIME Qty: 60 5RF amlodipine 5 mg tablet 5 mg PO DAILY tizanidine 2 mg tablet 2 mg PO BID PRN (Reason: Muscle Spasm) bisacodyl [Dulcolax (bisacodyl)] 5 mg tablet,delayed release (DR/EC) 10 mg PO ONCE 1 Days Qty: 2 0RF Rx Instructions: Take 2 tablets by mouth at 12:00pm the day before your procedure. polyethylene glycol 3350 [Miralax] 17 gram/dose powder 238 g PO ONCE 1 Days Qty: 238 0RF Rx Instructions: Take as directed by mouth the day before your procedure. atenolol 50 mg tablet 50 mg PO DAILY amitriptyline 25 mg tablet 25 mg PO BEDTIME Referrals: Name,MD Juan [Primary Care Provider] - 3 days Interventions: ED Discharge Assessment Last Done: 06/02/22 09:52 Discharge Date/Time: 06/02/22 09:53
[2022-06-02 09:34] VITALS: BP 129/84; PULSE 81; RESP 16; TEMP 36.7; O2SAT 98
== END 2022-06-02 09:53 | disposition home or self-care (01) ==
PROVIDERS: Emergency Provider Emergency Medicine; PCP Internal Medicine Geriatric Medicine
DX: J18.9 Pneumonia, unspecified organism (principal); M79.10 Myalgia, unspecified site; R05.9 Cough, unspecified; Z20.822 Contact with and (suspected) exposure to COVID-19; Z20.828 Contact with and (suspected) exposure to other viral communicable diseases
CPT/HCPCS: 0241U; 71046; 99283

== ENCOUNTER 2022-07-31 08:32 | Day surgery (SDC) | payer OTHER, SELFPAY ==
[2022-05-10 14:16] VITALS: BMI 39.3
--- NOTE | 2022-07-30 14:07 | HO.ANESPROP2 ---
Documented by User: Diana Smith NP 07/30/22 14:09 HPI - Anesthesia Eval Consult details Narrative: 42yo M for Upper Endoscopy and Colonoscopy FOR[facility]LY [facility], [facility] Active Problems Active Problems: All Active Problems (Updated 06/03/22 @ 00:00 by Background Daemon) Chronic constipation (Acute) Hyperplastic polyp of duodenum (Acute) Hyperplastic polyp of stomach (Acute) Colon polyps (Acute) GERD (gastroesophageal reflux disease) (Acute) Past Medical History Medical History Anxiety Colon polyps Depression GERD (gastroesophageal reflux disease) HTN (hypertension) Family History Family History Father History of dementia Mother Family history of high blood pressure Surgical History Surgical History History of back surgery History of colonoscopy History of esophagogastroduodenoscopy (EGD) Hx of oral surgery S/P laparoscopic appendectomy Social History Social History Household Members Other:: Alcohol intake: never Patient Tobacco Use Status: Former Tobacco user Use of substances other than those prescribed or required for medical reasons: No Are you DNR?: No Advance Directives: No Advance Directives Information Provided: Yes Recently lost weight without trying: No Nutrition Risks: No Nutritional Risk service: No Current occupational status: unemployed Meds Allergies Allergy/AdvReac Type Severity Reaction Status Date / Time Bleach (Sodium Hypochlorite) Allergy Mild Abdominal Verified 05/10/22 14:08 Pain tramadol [TRAMADOL] AdvReac Intermediate HTN Verified 01/03/22 10:23 Home Medications Medication Instructions Recorded Confirmed Last Taken Type bupropion HCl 300 mg 24 hr tablet, 300 mg PO QAM 10/25/20 05/10/22 Unknown History extended release clonazepam 1 mg tablet 1 mg PO BID PRN Anxiety 10/25/20 05/10/22 Unknown History ergocalciferol (vitamin D2) 1,250 1,250 mcg PO QWEEK 10/25/20 05/10/22 Unknown History mcg (50,000 unit) capsule gabapentin 600 mg tablet 600 mg PO TID 10/25/20 05/10/22 Unknown History nabumetone 750 mg tablet 750 mg PO BID 10/25/20 05/10/22 Unknown History oxycodone-acetaminophen 5 mg-325 1 tab PO TID PRN Pain 10/25/20 01/03/22 01/01/21 History mg tablet prazosin 1 mg capsule 1 mg PO BEDTIME 10/25/20 05/10/22 Unknown History trazodone 100 mg tablet 150 mg PO BEDTIME 10/25/20 05/10/22 Unknown History fluticasone propionate 50 2 spray intranasal DAILY 12/26/20 05/10/22 Unknown History mcg/actuation nasal spray,suspension amitriptyline 25 mg tablet 25 mg PO BEDTIME 05/24/21 05/10/22 Unknown History atenolol 50 mg tablet 50 mg PO DAILY 05/24/21 05/10/22 Unknown History celecoxib 200 mg capsule 200 mg PO DAILY PRN Pain 08/13/21 05/10/22 Unknown History cholecalciferol (vitamin D3) 50 50 mcg PO DAILY 08/13/21 05/10/22 Unknown History mcg (2,000 unit) tablet amlodipine 5 mg tablet 5 mg PO DAILY 01/03/22 05/10/22 Unknown History tizanidine 2 mg tablet 2 mg PO BID PRN Muscle Spasm 01/03/22 05/10/22 Unknown History Exam Exam Date and Time: July 30, 2022 1407 Height,Weight and Vital Signs: Height 6 ft Weight 131.542 kg Pertinent Lab Results Pertinent Lab Results: Laboratory Tests 04/21/22 04/21/22 08:33 08:33 WBC 5.6 Hgb 14.3 Hct 42.1 Plt Count 211 Sodium 141 Potassium 3.8 Chloride 106 Carbon Dioxide 25 BUN 15 Creatinine 1.09 Narrative Narrative: EKG 04/2022 Vent. Rate : 088 BPM ? ? Atrial Rate : 088 BPM ?? P-R Int : 146 ms? QRS Dur : 090 ms ? ? QT Int : 372 ms ? ? ? P-R-T Axes : 034 004 002 degrees ?? QTc Int : 450 ms ? Normal sinus rhythm Normal ECG When compared with ECG of 14-JUL-2020 13:17, No significant change was found Assessment and Plan Assessment Anesthesia Assessment: Chart Reviewed Documented by User: Rodrigue Jordan MD 07/31/22 09:27 [facility], [facility] Active Problems Active Problems: All Active Problems (Updated 06/03/22 @ 00:00 by Background Daemon) Chronic constipation (Acute) Hyperplastic polyp of duodenum (Acute) Hyperplastic polyp of stomach (Acute) Colon polyps (Acute) GERD (gastroesophageal reflux disease) (Acute) chronic pain w SCS Past Medical History Medical History Anxiety Colon polyps Depression GERD (gastroesophageal reflux disease) HTN (hypertension) Family History Family History Father History of dementia Mother Family history of high blood pressure Family history of problems with anesthesia: No Surgical History Surgical History History of back surgery History of colonoscopy History of esophagogastroduodenoscopy (EGD) Hx of oral surgery S/P laparoscopic appendectomy History of Problems with Anesthesia: No Social History Social History Household Members Other:: Alcohol intake: never Patient Tobacco Use Status: Former Tobacco user Use of substances other than those prescribed or required for medical reasons: No Are you DNR?: No Advance Directives: No Advance Directives Information Provided: Yes Recently lost weight without trying: No Nutrition Risks: No Nutritional Risk service: No Current occupational status: unemployed Meds Allergies Allergy/AdvReac Type Severity Reaction Status Date / Time Bleach (Sodium Hypochlorite) Allergy Mild Abdominal Verified 05/10/22 14:08 Pain tramadol [TRAMADOL] AdvReac Intermediate HTN Verified 01/03/22 10:23 Home Medications Medication Instructions Recorded Confirmed Last Taken Type bupropion HCl 300 mg 24 hr tablet, 300 mg PO QAM 10/25/20 05/10/22 Unknown History extended release clonazepam 1 mg tablet 1 mg PO BID PRN Anxiety 10/25/20 05/10/22 Unknown History ergocalciferol (vitamin D2) 1,250 1,250 mcg PO QWEEK 10/25/20 05/10/22 Unknown History mcg (50,000 unit) capsule gabapentin 600 mg tablet 600 mg PO TID 10/25/20 05/10/22 Unknown History nabumetone 750 mg tablet 750 mg PO BID 10/25/20 05/10/22 Unknown History oxycodone-acetaminophen 5 mg-325 1 tab PO TID PRN Pain 10/25/20 01/03/22 01/01/21 History mg tablet prazosin 1 mg capsule 1 mg PO BEDTIME 10/25/20 05/10/22 Unknown History trazodone 100 mg tablet 150 mg PO BEDTIME 10/25/20 05/10/22 Unknown History fluticasone propionate 50 2 spray intranasal DAILY 12/26/20 05/10/22 Unknown History mcg/actuation nasal spray,suspension amitriptyline 25 mg tablet 25 mg PO BEDTIME 05/24/21 05/10/22 Unknown History atenolol 50 mg tablet 50 mg PO DAILY 05/24/21 05/10/22 Unknown History celecoxib 200 mg capsule 200 mg PO DAILY PRN Pain 08/13/21 05/10/22 Unknown History cholecalciferol (vitamin D3) 50 50 mcg PO DAILY 08/13/21 05/10/22 Unknown History mcg (2,000 unit) tablet amlodipine 5 mg tablet 5 mg PO DAILY 01/03/22 05/10/22 Unknown History tizanidine 2 mg tablet 2 mg PO BID PRN Muscle Spasm 01/03/22 05/10/22 Unknown History Exam Airway Mallampati Class: I TM Dist: >3cm Neck ROM: Full Denture: Upper and Lower Heart: ok Lungs: ok Assessment and Plan Assessment Anesthesia Assessment: Anesthesia Plan Discussed Final Anesthetic Review Family History of Problems with Anesthesia: No History of Problems with Anesthesia: No NPO: Yes ASA Class: III Final Preanesthetic Review: No Changes in Pt Med Stat, Meds/Allgs Chart Reviewed, Consent Obtained/Reviewed and Anes Risks/Benef Reviewed Patient Risk: Intermediate Procedure Risk: Intermediate Anesthetic Plan Anesthetic Plan: MAC: and Agree w/ Assess. and Plan Disposition: Standard PACU
[2022-07-31 08:48] VITALS: BP 143/86; PULSE 83; RESP 16; TEMP 36.3; O2SAT 98
--- NOTE | 2022-07-31 08:52 | MHC.SHP ---
Pre-Procedural Eval Section A Date of Service: 07/31/22 Section B Chief Complaint: Polyp of stomach and duodenum, constipation Relevant Family History (Specify if Yes): No Relevant Social History: None Present Medications: see Short Stay Collaborative assessment Medical History: Significant History (Anxiety Colon polyps Depression GERD (gastroesophageal reflux disease) HTN (hypertension)) History of Previous Operations: Relevant previous surgery/procedure and date(s) (History of back surgery History of colonoscopy History of esophagogastroduodenoscopy (EGD) Hx of oral surgery S/P laparoscopic appendectomy) Allergies: Allergies Allergy/AdvReac Type Severity Reaction Status Date / Time Bleach (Sodium Hypochlorite) Allergy Mild Abdominal Verified 05/10/22 14:08 Pain tramadol [TRAMADOL] AdvReac Intermediate HTN Verified 01/03/22 10:23 Review of Systems Sugical H&P ROS: Negative: Constitution, Cardiovascular, Respiratory, Neurological, Psychiatric, Hem-Onc, Allergic/Immunologic, Gastrointestinal, Genitourinary, Musculoskeletal, Integumentary, Endocrine and Eyes/Ears/Nose/Throat Exam Surgical H&P Exam: Normal: HEENT, Normal: Heart, Normal: Lungs, Normal: Extremities, Normal: Abdomen, Normal: Skin and Normal: Neurological Plan Diagnosis/Plan: Unchanged I have reviewed the history and physical and performed a pertinent physical examination on my patient. No changes have occurred unless specified. Time Spent With Patient Time: Total time managing care of this patient today ____ minutes.
[2022-07-31] MEDS: Lactated Ringers 1,000 ML 100 ML IVCONT (09:02)
--- NOTE | 2022-07-31 09:22 | W.PM.OPN ---
Operative Note Operative Note Date of Service: 07/31/22 Narrative: Operative Information Procedure Description: EGD, Colonoscopy Indication: hx of gastric polyps Anesthesia: MAC FLEXIBLE TRANSORAL UPPER GASTROINTESTINAL ENDOSCOPY AND COLONOSCOPY PROCEDURE NOTE UPPER ENDOSCOPY Consent: Indications for the procedure and potential complications of bleeding, perforation, reaction to medications and missed diagnosis were discussed with the patient and informed consent was obtained. Instrument: Olympus GIF H 190 J mid size upper endoscope Monitoring: Vital signs and clinical assessment, continuous EKG monitoring, Pulse oximetry, Carbon Dioxide monitoring and blood pressure monitoring were done throughout the procedure. Procedure: The patient was placed in the left lateral decubitis position and pre-procedure medications were administered and a bite block was placed. The endoscope was inserted into the mouth and advanced under direct vision to the third part of duodenum. A careful inspection was made as the upper endoscope was withdrawn including a retroflexed examination of the proximal stomach; Findings and interventions are described below. Findings: Larynx:normal Esophagus: GE junction at 42 cm, diaphragm hiatus at 42 cm, normal mucosa Stomach: Normal mucosa with few fundic gland appearing polyps, one of which was biopsied. Biopsies were obtained also from the antrum, angularis and random body of stomach. Grade 2 flap valve on retroflexed examination of the cardia. Duodenum: Normal bulb and descending duodenum, Intervention: Biopsies as noted above COLONOSCOPY Instrument: Olympus variable stiffness pediatric scope 190L Colonoscopy Monitoring: Vital signs and clinical assessment, continuous EKG monitoring, Pulse oximetry, Carbon Dioxide monitoring and blood pressure monitoring were done throughout the procedure. Colon withdrawal time was 9 minutes. Procedure: The patient was placed in the left lateral decubitis position and pre-procedure medications were administered. After a digital rectal examination of the ano-rectum, the video colonoscope was inserted into the rectum and advanced through the colon to the cecum/TI. The colonoscope was slowly withdrawn in a retrograde panoramic fashion and the colon mucosa was carefully examined including a retroflexed view of the rectum. Findings and interventions are described below. Procedure Difficulty: easy Findings: Terminal Ileum-normal Cecum:normal Ascending Colon: normal Transverse Colon -normal Descending Colon:normal Sigmoid Colon: x 4 sessile polyps 8-9 mm removed with cold snare, also mucosal hypertrophy and diverticulosis noted Rectum: Retroflexion with small internal hemorrhoids, grade I Anorectum - normal Colon preparation: [place] Bowel Preparation Scale Right colon; 3 Transverse colon: 3 Left colon; 3 (0 = Unprepared colon segment with mucosa not seen due to solid stool that cannot be cleared. 1 = Portion of mucosa of the colon segment seen, but other areas of the colon segment not well seen due to staining, residual stool and/or opaque liquid. 2 = Minor amount of residual staining, small fragments of stool and/or opaque liquid, but mucosa of colon segment seen well. 3 = Entire mucosa of colon segment seen well with no residual staining, small fragments of stool or opaque liquid) Impression and Post Procedure Diagnosis: Endoscopy Findings: fundic gland polyps Colonoscopy Findings: polyps internal hemorrhoids diverticular disease Plan: Await Pathology results Repeat Colonoscopy in 3-4 years due to polyps or earlier if clinically indicated High fiber diet leaflet avoid straining at stool, epsom salts and sitz bath, anusol supps or cream Above findings were reviewed with the patient and relevant handouts were provided if indicated.
[2022-07-31 09:47] VITALS: BP 137/82; PULSE 73; RESP 16; TEMP 36.1; O2SAT 97
[2022-07-31] MEDS: Acetaminophen 325 MG TABLET 650 MG PO (09:55)
[2022-07-31 10:02] VITALS: BP 113/73; PULSE 72; RESP 16; TEMP 36.6; O2SAT 97
== END 2022-07-31 10:24 | disposition home or self-care (01) ==
PROVIDERS: PCP Internal Medicine Geriatric Medicine; Visit Provider Internal Medicine Gastroenterology
PROC: (CPT 45385; principal; 2022-07-31 09:20)
DX: K59.00 Constipation, unspecified (principal); Z86.010 Personal history of colon polyps; K63.5 Polyp of colon; K57.30 Diverticulosis of large intestine without perforation or abscess without bleeding; K64.0 First degree hemorrhoids; K31.7 Polyp of stomach and duodenum; K21.9 Gastro-esophageal reflux disease without esophagitis; K44.9 Diaphragmatic hernia without obstruction or gangrene; I10 Essential (primary) hypertension; F32.A Depression, unspecified; Z79.899 Other long term (current) drug therapy; Z88.8 Allergy status to other drugs, medicaments and biological substances; Z87.891 Personal history of nicotine dependence
CPT/HCPCS: 45385; 43239; 88305; 88342; J3010

== ENCOUNTER → 2022-08-15 11:33 | Outpatient (BNVA) | payer OTHER, SELFPAY | PROVIDERS: PCP Internal Medicine Geriatric Medicine; Visit Provider Physician Assistant | DX: K21.9 Gastro-esophageal reflux disease without esophagitis (principal); K59.09 Other constipation; K57.30 Diverticulosis of large intestine without perforation or abscess without bleeding; K31.7 Polyp of stomach and duodenum; Z86.010 Personal history of colon polyps | CPT/HCPCS: 99212 ==

== ENCOUNTER 2022-09-22 19:02 | Emergency (ER) | payer OTHER, SELFPAY ==
--- NOTE | ~2022-09-22 | XR_ITS ---
EXAMINATION: XR LUMBOSACRAL SPINE CLINICAL INFORMATION: Lower back pain COMPARISON: 05/20/2018 TECHNIQUE: Three views of the lumbosacral spine. FINDINGS: Posterior fusion hardware with disc spacer at L5-S1. Intact hardware. Alignment maintained. Mild disc space narrowing at L3-L4. Small endplate osteophytes noted at this level. Slight anterior wedging of the L1 vertebral body is unchanged. Radiopaque generator in the posterior soft tissues. The sacroiliac joints are symmetric. Intact sacrum. Normal bowel gas pattern. XR/XR lumbar spine 2-3V IMPRESSION: Posterior fusion hardware at L5-S1 with appropriate alignment. Mild degenerative change at L3-L4.
[2022-09-22 19:14] VITALS: BP 125/86; PULSE 88; RESP 18; TEMP 37.1; O2SAT 98; BMI 39.3
--- NOTE | 2022-09-22 19:16 | ED.GENADULT ---
HPI - General Adult General Chief complaint: Back Pain/Injury Stated complaint: Back Pain/cough/headache Time Seen by Provider: 09/22/22 22:54 Source: patient Mode of arrival: ambulatory Limitations: no limitations History of Present Illness HPI narrative: This is a 42-year-old male with a history of chronic back pain, lumbar fusion, spine stimulator who presents to the ER with complaints of acute on chronic back pain since Friday. Patient reports he was vacuuming his car when he felt pain in his lower back and since then he feels like his back is stiff. Patient reports his pain that radiates down the left leg as well as tingling down the left leg and into the right thigh but this is his baseline. This is not new or worsened from his previous. He denies any associated saddle anesthesia, bowel or bladder incontinence, fevers or chills. He has been taking ibuprofen at home for pain. He was taking narcotics until February with a stopped providing them for him. He tried reaching back out to his spinal surgeon in [place] but they are no longer seeing adult patients. Also complaining of runny nose, sneezing, sore throat, headache and cough for 1 week. No shortness of breath or chest pain or leg pain/swelling. Related Data Home Medications Medication Instructions Recorded Confirmed bupropion HCl 300 mg 24 hr tablet, 300 mg PO QAM 10/25/20 08/15/22 extended release clonazepam 1 mg tablet 1 mg PO BID PRN Anxiety 10/25/20 08/15/22 ergocalciferol (vitamin D2) 1,250 1,250 mcg PO QWEEK 10/25/20 08/15/22 mcg (50,000 unit) capsule gabapentin 600 mg tablet 600 mg PO TID 10/25/20 08/15/22 nabumetone 750 mg tablet 750 mg PO BID 10/25/20 08/15/22 prazosin 1 mg capsule 1 mg PO BEDTIME 10/25/20 08/15/22 trazodone 100 mg tablet 150 mg PO BEDTIME 10/25/20 08/15/22 fluticasone propionate 50 2 spray intranasal DAILY 12/26/20 08/15/22 mcg/actuation nasal spray,suspension amitriptyline 25 mg tablet 25 mg PO BEDTIME 05/24/21 08/15/22 atenolol 50 mg tablet 50 mg PO DAILY 05/24/21 08/15/22 celecoxib 200 mg capsule 200 mg PO DAILY PRN Pain 08/13/21 08/15/22 cholecalciferol (vitamin D3) 50 50 mcg PO DAILY 08/13/21 08/15/22 mcg (2,000 unit) tablet amlodipine 5 mg tablet 5 mg PO DAILY 01/03/22 08/15/22 tizanidine 2 mg tablet 2 mg PO BID PRN Muscle Spasm 01/03/22 08/15/22 Previous Rx's Medication Instructions Recorded sennosides 8.6 mg tablet (senna) 8.6 mg PO BEDTIME #30 tabs 10/25/20 sucralfate 100 mg/mL oral 10 ml PO QID #3,600 mL 04/16/21 suspension docusate sodium 100 mg capsule 200 mg PO BEDTIME #60 caps 08/13/21 (Colace) polyethylene glycol 3350 17 17 g PO DAILY #510 grams 08/13/21 gram/dose oral powder (Miralax) benzonatate 100 mg capsule 100 mg PO TID PRN cough #14 caps 06/02/22 doxycycline monohydrate 100 mg 100 mg PO DAILY #20 caps 06/02/22 capsule (Monodox) omeprazole 20 mg capsule,delayed 20 mg PO DAILY #60 caps 06/24/22 release methylcellulose (laxative) 500 mg 500 mg PO BID #60 tabs 08/15/22 tablet (Citrucel) benzonatate 200 mg capsule 200 mg PO TID PRN cough #20 caps 09/22/22 cyclobenzaprine 10 mg tablet 10 mg PO TID PRN muscle spasm #14 09/22/22 tabs hydrocodone-homatropine 5 mg-1.5 5 ml PO Q4-6H PRN cough #50 mL 09/22/22 mg/5 mL (5 mL) oral syrup (Hycodan) ibuprofen 600 mg tablet 600 mg PO Q6H PRN fever or pain 09/22/22 #30 tabs lidocaine 5 % topical patch 1 patch topical DAILY #30 ea 09/22/22 (Lidoderm) Allergies Allergy/AdvReac Type Severity Reaction Status Date / Time Bleach (Sodium Hypochlorite) Allergy Mild Abdominal Verified 08/15/22 11:35 Pain tramadol [TRAMADOL] AdvReac Intermediate HTN Verified 08/15/22 11:35 Review of Systems Review of Systems: Yes all other systems are reviewed and are negative Constitutional: Constitutional: Reports no additional constitutional complaints, Denies body ache(s), Denies chills, Denies fever(s), Reports headache(s) and Denies weakness Eyes: Eyes: Reports no additional eye complaints and Denies change in vision ENT: Reports system reviewed and no additional complaints, except as documented, Denies dizziness, Reports headache(s), Denies nasal congestion, Reports nasal discharge, Denies neck pain and Reports sore throat Cardiovascular: Cardiovascular: Reports no additional cardiovascular complaints, Denies chest pain, Denies leg edema and Denies dyspnea Respiratory: Respiratory: Reports no additional respiratory complaints, Reports cough and Denies dyspnea Gastrointestinal: Gastrointestinal: Reports no additional gastrointestinal complaints, Denies abdominal pain, Denies diarrhea, Denies nausea and Denies vomiting Genitourinary: Genitourinary: Denies urinary incontinence Musculoskeletal: Musculoskeletal: Reports no additional musculoskeletal complaints, Reports back pain, Denies arthralgias, Denies joint swelling, Denies neck pain, Reports numbness, Reports radiating pain into limb and Reports tingling Integumentary/Breasts: Skin/Breast: Reports system reviewed and no additional complaints, except as docu and Denies rash Neurologic: Reports system reviewed and no additional complaints, except as documented, Denies dizziness, Reports headache(s), Reports numbness, Reports tingling and Denies weakness PMFSH Past Medical History Attestation statement: The following information was validated with the patient. Source: old records reviewed and nursing notes reviewed Medical History Anxiety Colon polyps Depression GERD (gastroesophageal reflux disease) HTN (hypertension) Surgical History History of back surgery History of colonoscopy History of esophagogastroduodenoscopy (EGD) Hx of oral surgery S/P laparoscopic appendectomy Family History Family History Father History of dementia Mother Family history of high blood pressure Social History Social History Household Members Other:: Alcohol intake: never Patient Tobacco Use Status: Former Tobacco user Advance Directives: No Advance Directives Information Provided: No service: No Current occupational status: unemployed Physical Exam ED Vital Signs: Vital Signs - 24 hr 09/22/22 19:14 Temperature 98.7 F Pulse Rate 88 Respiratory Rate 18 Blood Pressure 125/86 Pulse Oximetry 98 Oxygen Delivery Method Room Air BMI result Body Mass Index 39.3 Const General: cooperative, healthy appearing, comfortable and no acute distress Orientation/consciousness: patient oriented x3 Limitations: no limitations HENMT Head: Yes normal to inspection Ears: hearing grossly normal bilaterally and TM's normal bilaterally General nose exam: Normal external nose present Face and sinus: Yes normal facial exam Throat: Yes posterior oropharynx normal, Yes tonsils normal and Yes uvula midline Eyes General: appearance normal, both eyes and all related structures Pupils: Equal, round and reactive pupils present Neck Neck: Yes normal visual inspection, Yes full ROM, Yes no lymphadenopathy and Yes no meningeal signs Chest Chest palpation & inspection: normal inspection of the chest Resp Effort & Inspection: normal respiratory effort Auscultation: clear to auscultation bilaterally Cardio Rate: regular rate Rhythm: regular rhythm Peripheral pulses: Peripheral pulses 2+ throughout GI Inspection: Yes normal to inspection Palpation (GI): Soft to palpation and nontender Back/Spine/Pelvis Other: Midline lumbar tenderness with no step-offs deformities. Patient also has tenderness the bilateral soft tissue area of lumbar spine Pain is worsened with flexion and extension of the spine. Skin General skin exam: no rashes or lesions noted Neuro Other: RLE 5/5 LLE 4/5 General: patient oriented x3, moves all extremities and no meningeal signs Cranial nerves: Yes Equal, round and reactive pupils present Cognition (Neuro): normal cognition Gait exam (Neuro): Normal gait present Sensory Exam: Normal double simultaneous stimulation for sensation Course Course Course Narrative: RME; 42 yold male presents to the ED for lower back pain after bending down and getting back up straight after washing car. proboably pulled back muscle. Patient also states cough and headache. no abdominal pain or symptoms. Medications Administered Discontinued Medications Generic Name Dose Route Start Last Admin Trade Name Freq PRN Reason Stop Dose Admin Guaifenesin/Codeine Phosphate 10 ml 09/22/22 23:04 09/22/22 23:30 Guaifen/Codeine Sf 200/20/10ml 10 Ml Liquid PO 09/22/22 23:05 10 ml ONCE ONE Administration Ketorolac Tromethamine 60 mg 09/22/22 23:04 09/22/22 23:30 Ketorolac Tromethamine 60 Mg/2 Ml Vial IM 09/22/22 23:05 60 mg ONCE ONE Administration Medical Decision Making Medical Decision Making [facility] Narrative: 42-year-old male here with acute on chronic back pain after doing some increased activity on Friday. No new neurological deficits or red flag symptoms. Patient is taking ibuprofen at home with continued symptoms. Patient had x-rays ordered and triage. Will give Toradol IM Also complaining of URI symptoms for 1 week. Exam is benign. Lungs clear. Will send testing for flu and COVID Differential Diagnosis Differential Diagnoses: The differential diagnosis associated with the presentation includes Viral syndrome, influenza, low concern for pneumonia/PE Lumbar strain-low concern for epidural abscess, cauda equina, cord compression, space-occupying lesion/malignancy, osteomyelitis Lab Data [facility] Lab Attestation statement: I reviewed the patient's lab results. Labs: Lab Results 09/22/22 09/22/22 Range/Units 21:36 21:36 COVID-19 (SANDRA) Negative (Negative) COVID-19 Clin Com See Note Influenza Type A (JANETH) Negative (Negative) Influenza Type B (JANETH) Negative (Negative) Influenza A & B Note See Note Independent Interpretation I performed an independent interpretation of an: Plain X-Ray Interpretation: I indepeendetely reviewed the x-ray and agree with the radiologist's report Radiology Impression Discussion of test interpretation with radiology: I have reviewed the radiologist's reading. Radiologist Impression: [address] [address] XRay Report Signed Patient: Marino Borges MR#: [id number] : 1980 Acct:[id number] Age/Sex: 42 / M ADM Date: 09/22/22 Loc: .ED Attending Dr: Ordering Physician: Michele Jon Date of Service: 09/22/22 Procedure(s): XR lumbar spine 2-3V Accession Number(s): [id number] cc: Michele Jon~ EXAMINATION: XR LUMBOSACRAL SPINE CLINICAL INFORMATION: Lower back pain COMPARISON: 05/20/2018 TECHNIQUE: Three views of the lumbosacral spine. FINDINGS: Posterior fusion hardware with disc spacer at L5-S1. Intact hardware. Alignment maintained. Mild disc space narrowing at L3-L4. Small endplate osteophytes noted at this level. Slight anterior wedging of the L1 vertebral body is unchanged. Radiopaque generator in the posterior soft tissues. The sacroiliac joints are symmetric. Intact sacrum. Normal bowel gas pattern. XR/XR lumbar spine 2-3V IMPRESSION: Posterior fusion hardware at L5-S1 with appropriate alignment. Mild degenerative change at L3-L4. ? Discharge Plan Discharge Clinical Impression: Strain of lumbar region, URI (upper respiratory infection) Patient Disposition: Home, Self-Care Instructions: Upper Respiratory Infection (ED), Back Pain (ED) Prescriptions: New lidocaine [Lidoderm] 5 % adhesive patch,medicated 1 patch topical DAILY Qty: 30 0RF Rx Instructions: leave on most painful area for up to 12 hrs cyclobenzaprine 10 mg tablet 10 mg PO TID PRN (Reason: muscle spasm) Qty: 14 0RF ibuprofen 600 mg tablet 600 mg PO Q6H PRN (Reason: fever or pain) Qty: 30 0RF benzonatate 200 mg capsule 200 mg PO TID PRN (Reason: cough) Qty: 20 0RF hydrocodone-homatropine [Hycodan] 5-1.5 mg/5 mL (5 mL) syrup 5 ml PO Q4-6H PRN (Reason: cough) Qty: 50 0RF Rx Instructions: Partial Fill upon patient request. No Action sucralfate 100 mg/mL suspension 10 ml PO QID Qty: 3600 0RF Hold Instructions: Doctor's Order omeprazole 20 mg capsule,delayed release(DR/EC) 20 mg PO DAILY Qty: 60 0RF fluticasone propionate 50 mcg/actuation spray,suspension 2 spray intranasal DAILY doxycycline monohydrate [Monodox] 100 mg capsule 100 mg PO DAILY Qty: 20 0RF benzonatate 100 mg capsule 100 mg PO TID PRN (Reason: cough) Qty: 14 0RF bupropion HCl 300 mg tablet extended release 24 hr 300 mg PO QAM trazodone 100 mg tablet 150 mg PO BEDTIME nabumetone 750 mg tablet 750 mg PO BID gabapentin 600 mg tablet 600 mg PO TID ergocalciferol (vitamin D2) 1,250 mcg (50,000 unit) capsule 1,250 mcg PO QWEEK Rx Instructions: on Fridays clonazepam 1 mg tablet 1 mg PO BID PRN (Reason: Anxiety) prazosin 1 mg capsule 1 mg PO BEDTIME sennosides [senna] 8.6 mg tablet 8.6 mg PO BEDTIME Qty: 30 6RF cholecalciferol (vitamin D3) 50 mcg (2,000 unit) tablet 50 mcg PO DAILY celecoxib 200 mg capsule 200 mg PO DAILY PRN (Reason: Pain) polyethylene glycol 3350 [Miralax] 17 gram/dose powder 17 g PO DAILY Qty: 510 2RF docusate sodium [Colace] 100 mg capsule 200 mg PO BEDTIME Qty: 60 5RF amlodipine 5 mg tablet 5 mg PO DAILY tizanidine 2 mg tablet 2 mg PO BID PRN (Reason: Muscle Spasm) Citrucel 500 mg tablet 500 mg PO BID Qty: 60 5RF atenolol 50 mg tablet 50 mg PO DAILY amitriptyline 25 mg tablet 25 mg PO BEDTIME Referrals: Abundio Conley MD, PhD [Physician] - 1 week Interventions: ED Discharge Assessment Last Done: 09/22/22 23:33 Discharge Date/Time: 09/22/22 23:33 Print Language: Uzbek
[2022-09-22 22:12] LABS: IDNOW Serial# 08D9AD1C; Influenza A Negative (Negative); Influenza B2 Negative (Negative)
[2022-09-22 22:13] LABS: COVID-19 Test Negative (Negative); IDNOW Serial# BCCEAD1C
[2022-09-22] MEDS: guaiFEN/Codeine SF 200/20/10ML 10 ML LIQUID PO (23:30)
[2022-09-22] MEDS: Ketorolac Tromethamine 60 MG/2 ML VIAL IM (23:30)
== END 2022-09-22 23:33 | disposition home or self-care (01) ==
PROVIDERS: Physician Assistant; Emergency Provider Internal Medicine
DX: M54.50 Low back pain, unspecified (principal); J06.9 Acute upper respiratory infection, unspecified; Z20.822 Contact with and (suspected) exposure to COVID-19; Z20.828 Contact with and (suspected) exposure to other viral communicable diseases; Z79.899 Other long term (current) drug therapy
CPT/HCPCS: 72100; 87502; 87635; 96372; 99283; 99284; J1885

== ENCOUNTER 2023-05-29 06:59 | Outpatient (REF) | payer OTHER, SELFPAY ==
[2023-05-29 07:10] LABS: MANUAL DIFF FLAG NO
[2023-05-29 07:56] LABS: Basophils Absolute Auto 0.1 X10*3/uL (0.0-0.2); Eosinophils Absolute Auto 0.1 X10*3/uL (0.0-0.4); Eosinophils Percent Auto 1.8 % (0-4); Hemoglobin 14.5 g/dl (14.0-18.0); Imm Gran Abs Auto 0.02 X10*3/uL (0.00-0.03); Imm Gran Pct Auto 0.3 % (0.0-0.4); Lymphocytes Absolute Auto 1.7 X10*3/uL (1.2-4.9); Lymphocytes Percent Auto 28.8 % (20-40); Mean Corpuscular HGB Conc 33.7 g/dl (31.0-36.0); Mean Corpuscular Hemoglobin 27.8 pg (27.0-33.0); Mean Corpuscular Volume 82.4 fL (80.0-98.0); Mean Platelet Volume 12.2 fL (9.4-12.4); Monocytes Absolute Auto 0.9 X10*3/uL (0.1-1.2); Monocytes Percent Auto 15.4 % (2-11); Neutrophils Absolute Auto 3.1 x10*3/uL (2.0-8.3); Neutrophils Percent Auto 52.7 % (45-73); Platelet Count 197 X10*3/uL (160-400); Red Blood Count 5.22 X10*6/uL (4.60-5.80); Red Cell Distribution Width 13.5 % (11.0-16.0)
[2023-05-29 08:21] LABS: Alanine Aminotransferase 29 U/L (0-40); Albumin Level 4.4 g/dL (3.5-5.0); Alkaline Phosphatase 88 U/L (39-117); Anion Gap 12 (12-20); Aspartate Amino Transferase 24 U/L (5-37); Bilirubin Total 0.3 mg/dL (0.0-1.0); Blood Urea Nitrogen 18 mg/dL (9-16); Calcium 9.2 mg/dL (8.4-10.2); Carbon Dioxide 26 mmol/L (22-29); Chloride 107 mmol/L (96-108); Estimated Glomerular Filt Rate > 60; Glucose Random 106 mg/dL (60-115); Potassium 3.3 mmol/L (3.3-5.1); Sodium 142 mmol/L (135-145); Total Protein 7.5 g/dL (6.5-8.0)
[2023-05-29 08:40] LABS: TSH reflex Free T4 4.06 uIU/mL (0.32-4.0)
== END 2023-05-29 07:00 | disposition home or self-care (01) ==
LOC: HO.LAB 06:59
PROVIDERS: PCP Internal Medicine Geriatric Medicine; Visit Provider Internal Medicine Geriatric Medicine
DX: I10 Essential (primary) hypertension (principal); G47.19 Other hypersomnia
CPT/HCPCS: 36415; 80053; 84439; 84443; 85025

== ENCOUNTER 2023-07-22 08:41 | Outpatient (AMB) | payer OTHER, SELFPAY ==
[2023-07-22 08:42] VITALS: BP 138/76; PULSE 80; O2SAT 100; BMI 41.5
--- NOTE | 2023-07-22 08:42 | A.OFFVIS_ITS ---
Intake Vital Signs 07/22/23 08:42 Height 6 ft Weight 306 lb BMI 41.5 BP 138/76 Blood Pressure Location Rt brachial Position Sitting Pulse 80 Pulse Source Pulse Oximeter Pulse Oximetry (%) 100 Oxygen Delivery Method Room Air Intake Visit Reasons: ENP-Excessive daytime sleepiness - CONF w/address Intake Note: Patient presents for daytime sleepiness Allergies Bleach (Sodium Hypochlorite) Allergy (Mild, Verified 07/22/23 08:44) Abdominal Pain tramadol [TRAMADOL] Adverse Reaction (Intermediate, Verified 07/22/23 08:44) HTN Medication List - Last Reconciled 07/22/23 by Piyush Willis CNP amitriptyline 25 mg PO BEDTIME amlodipine 5 mg PO DAILY atenolol 50 mg PO DAILY bupropion HCl XL 300 mg PO QAM buspirone 10 mg PO BID cholecalciferol (vitamin D3) 50 mcg PO DAILY clonazepam 1 mg PO BID PRN docusate sodium (Colace) 200 mg (2 x 100 mg) PO BEDTIME duloxetine mg PO ergocalciferol (vitamin D2) 1,250 mcg PO QWEEK fluticasone propionate 50 mcg/actuation 2 sprays intranasal DAILY meloxicam 15 mg PO DAILY omeprazole 20 mg PO DAILY 30 days prazosin 1 mg PO BEDTIME sennosides (senna) 8.6 mg PO BEDTIME HPI HPI Comments History of Present Illness Details 43 y/o male patient presents for new in- person visit for manage sleep apnea. Pt reports he was diagnosed with ANDREW around 2018 and started CPAP. However, his CPAP has recalled, he returned the CPAP, but did get a new CPAP due to Covid pandemic. He gained 10 lb since the last sleep study. Pt continues to endorse non refreshing sleep and daytime sleepiness. Sleep questionnaire: Have you ever been diagnosed with a sleep disorder? Yes. Have you ever had a sleep study in the past? Yes. Have you ever been treated for a sleep disorder? CPAP. Do you take medications for a sleep disorder? No. Do you snore? Yes. Do you wake up gasping at night? No. Do you have episodes of apneas? Yes. If yes, are they witnessed? Yes. Do you have episodes of nocturnal chest pain or dyspnea? No. Do you have difficulty initiating sleep? No. Do you have difficulty maintaining sleep? No. Do you wake up tired? Yes. Do you have headaches upon awakening? Yes. Do you wake up with dry mouth or throat? No. Do you have GERD? Yes. Do you have nocturia? No. Do you have nocturnal leg cramps? Yes. Do you have symptoms of restless legs? Yes, sometimes. Do you act out your dreams? Kicking. Sleep hygiene questionnaire: What is your usual sleep routine? Usual bedtime is at 9-10 pm; Usual wake up time is at 6 am. Do you take naps? No. Is your sleep environment cool, dark, and quiet? Yes. Do you exercise? No. Do you take caffeine or other stimulants? Coffee twice a day, and coke. Do you use electronics in bed? Yes. What is your work schedule? N/A. Hypersomnolence questionnaire: Do you have daytime tiredness or fatigue? Yes. Do you easily fall asleep when inactive? No. Have you ever had episodes of sudden weakness? No. Have you ever had episodes of sudden weakness associated with strong emotions? No. PFSH Medical History Anxiety Colon polyps Depression GERD (gastroesophageal reflux disease) HTN (hypertension) Surgical History Hx of oral surgery History of esophagogastroduodenoscopy (EGD) S/P laparoscopic appendectomy History of back surgery History of colonoscopy Family History Father History of dementia Mother Family history of high blood pressure Social History Household Members Other:: Alcohol intake: never Comment: refused bed alarm Patient Tobacco Use Status: Former Tobacco user service: No Current occupational status: unemployed Review of Systems Const All systems reviewed & are unremarkable except as noted in HPI and below Physical Exam Vital Signs: Last Vital Signs Pulse 80 07/22/23 08:42 BP 138/76 07/22/23 08:42 Pulse Ox 100 07/22/23 08:42 Oxygen Delivery Method Room Air 07/22/23 08:42 BMI result Body Mass Index 41.5 Const General: cooperative Nutritional Appearance: obese Orientation/consciousness: patient oriented x3 Neck Neck: Yes full ROM and Yes supple Resp Effort & Inspection: normal respiratory effort and able to speak in complete sentences Neuro General: patient oriented x3 Cranial nerves: Yes CN's II-XII intact bilaterally Cognition (Neuro): normal cognition Gait exam (Neuro): Normal gait present Psych Appearance: grossly normal Mental Status: mental status grossly normal Speech and movement: Normal speech and movement present Affect: normal affect Attitude: cooperative Assessment & Plan Assessment & Plan (1) ANDREW (obstructive sleep apnea): Code(s): G47.33 - Obstructive sleep apnea (adult) (pediatric) (2) Daytime sleepiness: Code(s): R40.0 - Somnolence (3) Obesity, Class III, BMI 40-49.9 (morbid obesity): Code(s): E66.01 - Morbid (severe) obesity due to excess calories Plan Pt is advised to undergo in lab sleep study to assess for sleep apnea. Will f/u with pt after study to discuss results and appropriate treatment options. Sleep hygiene education provided. Wt reduction advised. Pt to call with any worsening concerns or questions. Orders: Orders RT PSG in-lab sleep study Today E66.01 - Morbid (severe) obesity due to excess calories, G47.33 - Obstructive sleep apnea (adult) (pediatric), R40.0 - Somnolence Coding Level of Care Code New Pt Level 3 (90824) Diagnoses ANDREW (obstructive sleep apnea) G47.33 Daytime sleepiness R40.0 Obesity, Class III, BMI 40-49.9 (morbid obesity) E66.01
== END 2023-07-22 09:06 | disposition home or self-care (01) ==
PROVIDERS: PCP Internal Medicine Geriatric Medicine; Visit Provider Nurse Practitioner Family
DX: G47.33 Obstructive sleep apnea (adult) (pediatric) (principal); R40.0 Somnolence; E66.01 Morbid (severe) obesity due to excess calories
CPT/HCPCS: 99203

== ENCOUNTER → 2023-07-22 08:41 | Outpatient (BNVA) | payer OTHER, SELFPAY | PROVIDERS: PCP Internal Medicine Geriatric Medicine; Visit Provider Nurse Practitioner Family | DX: G47.33 Obstructive sleep apnea (adult) (pediatric) (principal); R40.0 Somnolence; E66.01 Morbid (severe) obesity due to excess calories; Z68.41 Body mass index [BMI] 40.0-44.9, adult | CPT/HCPCS: 99202 ==

== ENCOUNTER 2023-09-04 06:47 | Outpatient (REF) | payer OTHER, SELFPAY ==
[2023-09-04 07:18] LABS: Anion Gap 15 (12-20); Blood Urea Nitrogen 17 mg/dL (9-16); Calcium 9.3 mg/dL (8.4-10.2); Carbon Dioxide 24 mmol/L (22-29); Chloride 107 mmol/L (96-108); Estimated Glomerular Filt Rate > 60; Glucose Random 115 mg/dL (60-115); Potassium 3.5 mmol/L (3.3-5.1); Sodium 142 mmol/L (135-145)
== END 2023-09-04 06:48 | disposition home or self-care (01) ==
LOC: HO.LAB 06:47
PROVIDERS: PCP Internal Medicine Geriatric Medicine; Visit Provider Internal Medicine Geriatric Medicine
DX: I10 Essential (primary) hypertension (principal)
CPT/HCPCS: 36415; 80048

== ENCOUNTER 2024-01-20 09:24 | Outpatient (AMB) | payer OTHER, SELFPAY ==
--- NOTE | 2024-01-20 09:59 | A.OFFVIS_ITS ---
Vital Signs 01/20/24 10:00 Height 6 ft Weight 301 lb BMI 40.8 BP 150/98 H Blood Pressure Location Rt brachial Position Sitting Intake Visit Reasons: 6 mnts f/u for sleep Intake Note: Patient presents for 6 month follow up. Med Care Manager Required: Yes Med Care Manager Name: kaya rosen Information Interpreted: non-clinical & clinical Allergies Bleach (Sodium Hypochlorite) Allergy (Mild, Verified 01/20/24 10:03) Abdominal Pain tramadol [TRAMADOL] Adverse Reaction (Intermediate, Verified 01/20/24 10:03) HTN Medication List - Last Reconciled 01/20/24 by EMELIA Harding amitriptyline 25 mg PO BEDTIME amlodipine 5 mg PO DAILY atenolol 50 mg PO DAILY bupropion HCl XL 300 mg PO QAM buspirone 10 mg PO BID cholecalciferol (vitamin D3) 50 mcg PO DAILY clonazepam 1 mg PO BID PRN docusate sodium (Colace) 200 mg (2 x 100 mg) PO BEDTIME duloxetine mg PO duloxetine 20 mg PO BID ergocalciferol (vitamin D2) 1,250 mcg PO QWEEK fluticasone propionate 50 mcg/actuation 2 sprays intranasal DAILY meloxicam 15 mg PO DAILY omeprazole 20 mg PO DAILY 30 days oxycodone-acetaminophen 5-325 mg 1 tab PO TID PRN prazosin 1 mg PO BEDTIME semaglutide (weight loss) (Wegovy) 0.5 mg subcut QWEEK sennosides (senna) 8.6 mg PO BEDTIME valsartan 160 mg PO DAILY HPI Comments Details: 43 y/o male patient presents for f/u of untreated sleep apnea. Pt reports he was diagnosed with ANDREW (unsure of severity) around 2018 and started CPAP which he tolertaed ok. However, his CPAP was recalled, so he returned the CPAP as requested by Ana but never received a new CPAP. He gained at least 10 lb since the last sleep study. Since the last visit, he was scheduled to undergo a f/u in-lab sleep study to assess status of sleep apnea, however pt was unable to do it d/t an unexpected family emergency. He is still interested in having the sleep study and restarting PAP tx. Pt continues to endorse snoring, unrefreshing sleep, and daytime sleepiness. PFSH Medical History Colon polyps Depression Anxiety HTN (hypertension) GERD (gastroesophageal reflux disease) Surgical History Hx of oral surgery History of esophagogastroduodenoscopy (EGD) S/P laparoscopic appendectomy History of back surgery History of colonoscopy Family History Father History of dementia Mother Family history of high blood pressure Social History Household Members Other:: Alcohol intake: never Comment: refused bed alarm Patient Tobacco Use Status: Former Tobacco user service: No Current occupational status: unemployed Physical Exam Vital Signs: Last Vital Signs BP 150/98 H 01/20/24 10:00 BMI result Body Mass Index 40.8 Const General: no acute distress Orientation/consciousness: patient oriented x3 Resp Effort & Inspection: normal respiratory effort and able to speak in complete sentences Neuro General: patient oriented x3 Psych Mental Status: mental status grossly normal Speech and movement: Clear speech present Attitude: cooperative Assessment & Plan Assessment & Plan (1) ANDREW (obstructive sleep apnea): Code(s): G47.33 - Obstructive sleep apnea (adult) (pediatric) Category: Medical (2) Daytime sleepiness: Code(s): R40.0 - Somnolence Category: Medical (3) Obesity, Class III, BMI 40-49.9 (morbid obesity): Code(s): E66.01 - Morbid (severe) obesity due to excess calories Category: Medical (4) Snoring: Code(s): R06.83 - Snoring Category: Medical Plan Pt advsied to undergo in-lab sleep study to assess status of sleep apnea in setting of continued snoring, daytime sleepiness, and obesity w/ BMI > 40. Will follow-up w/ pt after review of sleep study results, to discuss next steps such as resuming PAP tx. Will follow-up upon review of above and patient to follow-up in clinic in 6 months or sooner prn. Orders: Orders RT PSG in-lab sleep study Today E66.01 - Morbid (severe) obesity due to excess calories, G47.33 - Obstructive sleep apnea (adult) (pediatric), R06.83 - Snoring, R40.0 - Somnolence Coding Level of Care Code Est Pt Level 3 (94683) Diagnoses ANDREW (obstructive sleep apnea) G47.33 Daytime sleepiness R40.0 Obesity, Class III, BMI 40-49.9 (morbid obesity) E66.01 Snoring R06.83 [place] Sleepiness Scale Questions Sitting and reading: moderate chance of dozing Watching TV: moderate chance of dozing Sitting inactive in a theater, movie etc.: moderate chance of dozing As a passenger in a car for an hour without break: would never doze Lying down in the afternoon when circumstances permit: moderate chance of dozing Sitting and talking to someone: would never doze Sitting quietly after lunch without alcohol: moderate chance of dozing In a car, while stopped for a few minutes in the traffic: would never doze ESS < 10: normal, ESS > 12: pathologic: 10
[2024-01-20 10:00] VITALS: BP 150/98; BMI 40.8
== END 2024-01-20 10:44 | disposition home or self-care (01) ==
PROVIDERS: PCP Internal Medicine Geriatric Medicine; Visit Provider Nurse Practitioner Family
DX: G47.33 Obstructive sleep apnea (adult) (pediatric) (principal); R40.0 Somnolence; E66.01 Morbid (severe) obesity due to excess calories; R06.83 Snoring
CPT/HCPCS: 99213

== ENCOUNTER → 2024-01-20 09:24 | Outpatient (BNVA) | payer OTHER, SELFPAY | PROVIDERS: PCP Internal Medicine Geriatric Medicine; Visit Provider Nurse Practitioner Family | DX: G47.33 Obstructive sleep apnea (adult) (pediatric) (principal); R06.83 Snoring; R40.0 Somnolence; E66.01 Morbid (severe) obesity due to excess calories; Z68.41 Body mass index [BMI] 40.0-44.9, adult | CPT/HCPCS: 99212 ==

== ENCOUNTER → 2024-02-08 19:30 | Outpatient (BNV) | payer OTHER, SELFPAY | PROVIDERS: PCP Internal Medicine Geriatric Medicine; Visit Provider Psychiatry & Neurology Neurology | DX: G47.33 Obstructive sleep apnea (adult) (pediatric) (principal) | CPT/HCPCS: 95810 ==

== ENCOUNTER → 2024-02-08 19:30 | Outpatient (REF) | payer OTHER, SELFPAY | LOC: HO.SL 19:30 | PROVIDERS: PCP Internal Medicine Geriatric Medicine; Visit Provider Nurse Practitioner Family | DX: G47.33 Obstructive sleep apnea (adult) (pediatric) (principal); E66.01 Morbid (severe) obesity due to excess calories; R40.0 Somnolence; R06.83 Snoring | CPT/HCPCS: 95810 ==

== ENCOUNTER 2024-08-03 08:17 | Outpatient (AMB) | payer OTHER, SELFPAY ==
--- NOTE | 2024-08-03 08:19 | MHC.OFFVIS ---
Vital Signs 08/03/24 08:20 Height 6 ft Weight 306 lb 2 oz BMI 41.5 BP 122/78 Blood Pressure Location Rt brachial Position Sitting Pulse 86 Pulse Source Pulse Oximeter Pulse Oximetry (%) 98 Oxygen Delivery Method Room Air Intake Visit Reasons: Follow Up Intake Note: Patient presents follow up for sleep. PSG in chart. Patient states having issues with the CPAP. Mask fills with water and feels like he drowning. He has tried 3 masks with same issue. Child And Family Therapist Required: Yes Child And Family Therapist Services: Child And Family Therapist Offered & Declined Child And Family Therapist Name: Accompanied by: Spouse Allergies Bleach (Sodium Hypochlorite) Allergy (Mild, Verified 08/03/24 08:24) Abdominal Pain tramadol [TRAMADOL] Adverse Reaction (Intermediate, Verified 08/03/24 08:24) HTN Medication List - Last Reconciled 08/03/24 by EMELIA Harding amitriptyline 25 mg PO BEDTIME amlodipine 5 mg PO DAILY atenolol 50 mg PO DAILY bupropion HCl XL 300 mg PO QAM buspirone 10 mg PO BID cholecalciferol (vitamin D3) 50 mcg PO DAILY clonazepam 1 mg PO BID PRN docusate sodium (Colace) 200 mg (2 x 100 mg) PO BEDTIME duloxetine mg PO duloxetine 20 mg PO BID ergocalciferol (vitamin D2) 1,250 mcg PO QWEEK fluticasone propionate 50 mcg/actuation 2 sprays intranasal DAILY meloxicam 15 mg PO DAILY omeprazole 20 mg PO DAILY 30 days oxycodone-acetaminophen 5-325 mg 1 tab PO TID PRN prazosin 1 mg PO BEDTIME sennosides (senna) 8.6 mg PO BEDTIME tirzepatide (weight loss) (Zepbound) 5 mg subcut QWEEK valsartan 160 mg PO DAILY HPI Comments Details: 43 y/o male patient presents for f/u of obstructive sleep apnea. Patient is accompanied by his .. Interval 02/08/2024 in-lab PSG, showed mild sleep apnea with mild periodic limb movements of sleep. AHI 7 per hour, REM AHI 27 per hour average SpO2 93%, O2 nahomy 87%, SpO2 was under 88% for 0 minutes. Snoring was light to moderate. Periodic limb movement of sleep 40 per hour, with PLMS arousal index 4.4 per hour. Since, patient has resumed using APAP therapy, however despite trying 3 different mask, hanging up his tubing in the morning, and adjusting humidification level, the CPAP mask continues to feel with water and he feels like he is suffocating. Thus, he has not been able to use the CPAP machine. His PCP started him on set palm therapy about month ago. He states he is tolerating this well. He has started to lose weight. In regards to the mild periodic limb movement of sleep noted on the sleep study, patient does endorse restless sleep, needs frequent adjustments due to chronic low back pain with pain that radiates into his legs as a burning hot pain. He does have a spinal cord stimulator. He also endorses some restless leg, with an urge to move and leg cramps. states that patient may twitch or kick her in his sleep. [facility] Medical History Colon polyps Depression Anxiety HTN (hypertension) GERD (gastroesophageal reflux disease) Surgical History Hx of oral surgery History of esophagogastroduodenoscopy (EGD) S/P laparoscopic appendectomy History of back surgery History of colonoscopy Family History Father History of dementia Mother Family history of high blood pressure Social History Household Members Other:: Alcohol intake: never Comment: refused bed alarm Patient Tobacco Use Status: Former Tobacco user service: No Current occupational status: unemployed Physical Exam Vital Signs: Last Vital Signs Pulse 86 08/03/24 08:20 BP 122/78 08/03/24 08:20 Pulse Ox 98 08/03/24 08:20 Oxygen Delivery Method Room Air 08/03/24 08:20 BMI result Body Mass Index 41.5 Const General: no acute distress Orientation/consciousness: patient oriented x3 Resp Effort & Inspection: normal respiratory effort and able to speak in complete sentences Neuro General: patient oriented x3 Psych Mental Status: mental status grossly normal Speech and movement: Clear speech present Attitude: cooperative Assessment & Plan Assessment & Plan (1) ANDREW (obstructive sleep apnea): Code(s): G47.33 - Obstructive sleep apnea (adult) (pediatric) Category: Medical (2) Periodic limb movements of sleep: Code(s): G47.61 - Periodic limb movement disorder Category: Medical (3) Obesity, Class III, BMI 40-49.9 (morbid obesity): Code(s): E66.01 - Morbid (severe) obesity due to excess calories Category: Medical Plan Reviewed results of in-lab sleep study, which showed mild obstructive sleep apnea with increased severity in REM sleep, as well as mild periodic limb movements of sleep. Patient does have symptoms of restless leg in setting of chronic low back pain with radicular features. Concur with trial of Zepbound therapy to promote weight loss- as this may reduce severity of patient's obstructive sleep apnea symptoms. We will check labs for common etiologies of RLS and periodic limb movements of sleep. Note the patient is currently on some medications that may exacerbate RLS symptoms such as duloxetine and amitriptyline- which he can continue for now, however will consider alternatives upon review of lab results. As patient has not tolerated CPAP, and this is not currently compliant, patient asked to reach out to his respiratory company to see if he is eligible to keep the machine or if he should return it to avoid unnecessary cost. Will follow-up upon review of above and patient to follow-up in clinic in 6 months or sooner prn. Orders: Orders Vitamin B12 and Folate Today E66.01 - Morbid (severe) obesity due to excess calories, E83.19 - Other disorders of iron metabolism, F41.9 - Anxiety disorder, unspecified, G47.33 - Obstructive sleep apnea (adult) (pediatric), G47.61 - Periodic limb movement disorder, R25.2 - Cramp and spasm, R40.0 - Somnolence Vitamin B6 Today E66.01 - Morbid (severe) obesity due to excess calories, E83.19 - Other disorders of iron metabolism, F41.9 - Anxiety disorder, unspecified, G47.33 - Obstructive sleep apnea (adult) (pediatric), G47.61 - Periodic limb movement disorder, R25.2 - Cramp and spasm, R40.0 - Somnolence Magnesium Today R25.2 - Cramp and spasm IRON PROFILE Today E66.01 - Morbid (severe) obesity due to excess calories, E83.19 - Other disorders of iron metabolism, F41.9 - Anxiety disorder, unspecified, G47.61 - Periodic limb movement disorder, R25.2 - Cramp and spasm, R40.0 - Somnolence Ferritin Today E66.01 - Morbid (severe) obesity due to excess calories, E83.19 - Other disorders of iron metabolism, F41.9 - Anxiety disorder, unspecified, G47.33 - Obstructive sleep apnea (adult) (pediatric), G47.61 - Periodic limb movement disorder, R25.2 - Cramp and spasm, R40.0 - Somnolence Complete Blood Count Auto Diff Today E66.01 - Morbid (severe) obesity due to excess calories, E83.19 - Other disorders of iron metabolism, F41.9 - Anxiety disorder, unspecified, G47.33 - Obstructive sleep apnea (adult) (pediatric), G47.61 - Periodic limb movement disorder, R25.2 - Cramp and spasm, R40.0 - Somnolence Comprehensive Met. Panel Today E66.01 - Morbid (severe) obesity due to excess calories, E83.19 - Other disorders of iron metabolism, F41.9 - Anxiety disorder, unspecified, G47.33 - Obstructive sleep apnea (adult) (pediatric), G47.61 - Periodic limb movement disorder, R25.2 - Cramp and spasm, R40.0 - Somnolence Vitamin D 25-OH (D2 and D3) Today E66.01 - Morbid (severe) obesity due to excess calories, E83.19 - Other disorders of iron metabolism, F41.9 - Anxiety disorder, unspecified, G47.33 - Obstructive sleep apnea (adult) (pediatric), G47.61 - Periodic limb movement disorder, R25.2 - Cramp and spasm, R40.0 - Somnolence TSH reflex Free T4 Today E66.01 - Morbid (severe) obesity due to excess calories, E83.19 - Other disorders of iron metabolism, F41.9 - Anxiety disorder, unspecified, G47.33 - Obstructive sleep apnea (adult) (pediatric), G47.61 - Periodic limb movement disorder, R25.2 - Cramp and spasm, R40.0 - Somnolence Coding Level of Care Code Est Pt Level 4 (94397) Diagnoses ANDREW (obstructive sleep apnea) G47.33 Periodic limb movements of sleep G47.61 Obesity, Class III, BMI 40-49.9 (morbid obesity) E66.01
[2024-08-03 08:20] VITALS: BP 122/78; PULSE 86; O2SAT 98; BMI 41.5
--- OUTSIDE RECORDS SUMMARY | 2024-08-03 08:36 | XMS_ITS | Encounter Summary ---
Author Organization [employer] Address [address] [place] [address] [address] [place] [address] Care Team Providers Care Insulator Apprentice Name Role Phone Name, Juna STORY Primary Care Provider [phone] Reason for Visit * Reason Onset Date Comments Med Refill 07/28/2024 Encounter Details Date Type Department Care Team (Late st Contact Info) Description 07/28/2024 Refill [facility] MED[facility]INE [address] [place], [place] [phone] Name, MD Juan [address] [place], [place] [phone] Chronic low back pain with bilateral sciatica, unspecified back pain laterality Social History Tobacco Use Types Packs/Day Years Used Date Smoking Tobacco: Former Cigarettes 0 04/14/2000 - 04/14/2009 Alcohol Use Standard Drinks/Week Comments Not Currently 2 (1 standard drink = 0.6 oz pur e alcohol) Stopped one month ago Depression Answer Date Recorded Patient Health Questionnaire-9 Score 5 03/02/2024 Patient Health Questionnaire-9 Score 5 03/02/2024 Last PHQ-9: Questionnaire Data Not on file 1 05/02/2023 Housing Stability Answer Date Recorded What is your housing situation today? I have teresa husain 11/18/[address] you li ve. Do you have problems with any of the following? None of the above 11/18/2023 Food Insecurity Answer Date Recorded Within the past 12 months, y ou worried that your food would run out before you got money to buy more: Never True 11/18/2023 Within the past 12 months,th e food you bought just didn't last and you didn't have enough money to get more: Never True 09/2023 Transportation Answer Date Recorded In the past 12 months, has l ack of transportation kept you from medical appts, meetings, work or from getting things needed for daily living? No 11/18/2023 Utilities Answer Date Recorded In the past 12 months, has t he electric, gas, oil or water company threatened to shut off services in your home? No 11/18/2023 Depression Answer Date Recorded Patient Health Questionnaire-2 Score 2 03/02/2024 Internet Access Answer Date Recorded Internet Access Q1 No 12/15/2023 Internet Access Q2 I do not want or need it 05/2023 Sex and Gender Information Value Date Recorded Sex Assigned at Male 02/11/2022 10:28 AM EDT Legal Sex Male 10:28 AM EDT Gender Identity Male 02/11/2022 10:28 AM EDT Sexual Orientation Straight 02/11/2022 10 :28 AM EDT documented as of this encounter Miscellaneous Notes * Addendum Note - Klaus Decker RN - 07/29/2024 8:38 AM EDTAddended by: KLAUS DECKER on: 07/29/2024 08:38 AM Modules accepted: Orders * Telephone Encounter - Klaus Decker RN - 07/29/2024 8:34 AM EDT [facility]pat checked by sba underwriter on 07/29/24. Pt picked up a 28 day supply of oxyCODONE- acetaminophen (Percocet) 5-325 MG tablet on 07/02/24. Pt not due for refill until 07/30/24. Medication pended to PCP witha starting date of 07/30/24 for review. Message forwarded to PCP to review and advise. * Telephone Encounter - Klaus Decker RN - 07/28/2024 11:07 AM EDT Masspat checked by sba underwriter on 07/28/24. Pt picked up a 28 day supply of oxyCODONE- acetaminophen (Percocet) 5-325 MG tablet on 07/02/24. Pt not due for refill until 07/30/24. Message forwarded to blue team nurses for 07/29/24 to review Masspat and pend medication to PCP. * Telephone Encounter - Tess Rothman - 07/28/2024 11:02 AM EDT TC from pt requesting medication refill. Medications needing refill : oxyCODONE-acetaminophen (Percocet) 5-325 MG tablet To be sent to: [id number] - [place], [place] - [address] [place] [address] ST [facility] [address] documented in this encounter Plan of Treatment Upcoming Encounters Date Type Department Care Team (Late st Contact Info) Description 08/04/2024 9:30 AM EDT Clinical Support [facility] [address] [place] [address] documented as of this encounter Visit Diagnoses Diagnosis Chronic low back pain with bilateral sciatica, unspecified back pain laterality documented in this encounter Additional Health Concerns Assessment Noted Time PHQ-9 Depression Total Score: 5 03/02/20 24 9:23 AM EST documented as of this encounter Care Teams Insulator Apprentice Relationship Specialty Start Date End Date Name, MD Juan [address] [place] [id number] PCP - General Family Medicine 09/06/15 documented as of this encounter
--- OUTSIDE RECORDS SUMMARY | 2024-08-03 08:36 | XMS_ITS | Encounter Summary ---
Author Organization [employer] Address [address] [place] [address] [address] [place] [address] Care Team Providers Care Health Care Administrator Name Role Phone Name, Juan STORY Primary Care Provider [phone] Reason for Visit * Reason Onset Date Comments Med Refill 07/28/2024 Encounter Details Date Type Department Care Team (Late st Contact Info) Description 07/28/2024 Refill [facility] [address] [place], [place] [phone] Name, MD Juan [address] [place], [place] [phone] Chronic low back pain with bilateral sciatica, [...] AM EDT documented as of this encounter Plan of Treatment Upcoming Encounters Date Type Department Care Team (Late st Contact Info) Description 08/04/2024 9:30 AM EDT Clinical Support [facility] [address] [place] [address] documented as of this encounter Visit Diagnoses Diagnosis Chronic low back pain with bilateral sciatica, unspecified back pain laterality documented in this encounter Additional Health Concerns Assessment Noted Time PHQ-9 Depression Total Score: 5 03/02/20 24 9:23 AM EST documented as of this encounter Care Teams Health Care Administrator Relationship Specialty Start Date End Date Name, MD Juan [address] [place] [address] PCP - General Family Medicine 09/06/15 documented as of this encounter
--- OUTSIDE RECORDS SUMMARY | 2024-08-03 08:36 | XMS_ITS | Clinical Summary ---
Author Organization [employer] [facility] ity Address [address] [place] [address] Care Team Providers Care Strategic Planner Name Role Phone Unavailable Primary Care Provider Unavailabl e Social History Tobacco Use Types Packs/Day Years Used Date Smoking Tobacco: Never Assessed Sex and Gender Information Value Date Recorded Sex Assigned at Not on file Legal Sex Male 2:59 AM EST Gender Identity Not on file Sexual Orientation Not on file Plan of Treatment Health Maintenance Due Date Last Done Comments DTaP,Tdap,and Td Vaccines (1 - Tdap) 2000 Hepatitis B Vaccines (1 of 3 - 19+ 3-dose series) 2000 Cholesterol Screening (Lipid Panel) 06/20/2023 Depression Screening 06/20/2023 HIV Screening 06/20/2023 Hepatitis C Screening 06/20/2023 Social Influencers of Health Screening 06/20/2023 COVID-19 Vaccine (2023-2 5 season) 2023 Influenza Vaccine (Season Ended) 2024 HIB Vaccines Aged Out No longer eligi ble based on patient's age to complete this topic HPV Vaccines Aged Out No longer eligi ble based on patient's age to complete this topic Hepatitis A Vaccines Aged Out No long er eligible based on patient's age to complete this topic IPV Vaccines Aged Out No longer eligi ble based on patient's age to complete this topic MMR Vaccines Aged Out No longer eligi ble based on patient's age to complete this topic Meningococcal ACWY Vaccine Aged Out N o longer eligible based on patient's age to complete this topic Meningococcal B Vaccine Aged Out No l onger eligible based on patient's age to complete this topic Pneumococcal Vaccine: Pediat rics (0 to 5 Years) and At-Risk Patients (6 to 64 Years) Aged Out No longer eligible b ased on patient's age to complete this topic RSV Immunization Patients Un veda 20 months Aged Out No longer eligible b ased on patient's age to complete this topic Varicella Vaccines Aged Out No longer eligible based on patient's age to complete this topic
--- OUTSIDE RECORDS SUMMARY | 2024-08-03 08:36 | XMS_ITS | Encounter Summary ---
Author Organization [employer] [facility] Address [address] [place] [address] [place] [address] Care Team Providers Care Inside Technical Sales Representative Name Role Phone Name, Juan STORY Primary Care Provider [phone] Reason for Visit * Reason Comments Med Refill Encounter Details Date Type Department Care Team (Late st Contact Info) Description 01/06/2023 Refill [facility] MED[facility]INE [address] [place] [phone] Name, MD Juan [address] [place] [id number] Social History Tobacco Use Types Packs/Day Years Used Date Smoking Tobacco: Former Cigarettes 0 04/14/2000 - 04/14/2009 Alcohol Use Standard Drinks/Week Comments Not Currently 2 (1 standard drink = 0.6 oz pur e alcohol) Stopped one month ago Depression Answer Date Recorded Patient Health Questionnaire-9 Score 0 10/22/2022 Depression Answer Date Recorded Patient Health Questionnaire-2 Score 0 10/22/2022 Sex and Gender Information Value Date Recorded Sex Assigned at Male 02/11/2022 10:28 AM EDT Legal Sex Male 10:28 AM EDT Gender Identity Male 02/11/2022 10:28 AM EDT Sexual Orientation Straight 02/11/2022 10 :28 AM EDT documented as of this encounter Plan of Treatment Upcoming Encounters Date Type Department Care Team (Late st Contact Info) Description 08/04/2024 9:30 AM EDT Clinical Support [facility] [address] [place] [phone] documented as of this encounter Visit Diagnoses Not on filedocumented in this encounter Additional Health Concerns Assessment Noted Time PHQ-9 Depression Total Score: 0 10/23/19 23 9:17 AM EDT documented as of this encounter Care Teams Inside Technical Sales Representative Relationship Specialty Start Date End Date Name, MD Juan [address] [place] [address] PCP - General Family Medicine 09/06/15 documented as of this encounter
--- OUTSIDE RECORDS SUMMARY | 2024-08-03 08:36 | XMS_ITS | Clinical Summary ---
Author Organization [employer] Address [address] [place] [address] [address] [place] [address] Care Team Providers Care Psychological Operations Officer Name Role Phone Name, Juan STORY Primary Care Provider [phone] Allergies Active Allergy Reactions Criticality Noted Date Comments Sodium Hypochlorite Hives,Rash,Anaphylax i s High 05/10/2022 Other reaction(s): Abdominal Pain Tramadol Headache High 04/17/2015 Other reaction(s): HTN Headaches and hypertension Medications buPROPion XL (Wellbutrin XL) 300 MG 24 hr tablet Take 1 tablet by mouth 1 (one) time each day. 11/11/19 21 Active clonazePAM (KlonoPIN) 1 MG tablet Take 1 tablet by mouth if needed in the morning and at bedtime. 11/11/19 21 Active prazosin (Minipress) 1 MG capsule Take 1 capsule by mouth at bedtime. 10/03/19 19 Active Sennosides 8.6 MG capsule Take 1 capsule by mouth 1 (one) time each day. Active Misc. Devices (Wrist Brace) misc Active fluticasone (Flonase) 50 MCG/ACT nasal sprayIndicatio ns:Allergic rhinitis, unspecified seasonality, unspecified trigger SHAKE LIQUID AND USE 2 SPRAYS IN EACH NOSTRIL EVERY DAY 16 g 2 05/13/19 23 Active albuterol 108 (90 Base) MCG/ACT inhalerIndicat ions:Shortness of breath Inhale 2 puffs every 6 (six) hours if needed for wheezing. 18 g 11 06/13/19 23 Active mometasone (Elocon) 0.1 % ointment APPLY TOPICALLY TO THE AFFECTED AREA IN THE MORNING 15 g 08/28/19 23 Active Diclofenac Sodium 1 % gel APPLY 2 GRAMS TOPICALLY TO THE AFFECTED AREA TWICE DAILY EVERY DAY 100 g 1 01/31/20 23 Active Spacer/Aero-Ho lding Chambers (OptiChamber Tiesha-Lg Mask) deviceIndicati ons:Shortness of breath USE DIRECTED 1 each 05/30/19 24 Active cholecalcifero l 50 MCG (2000 UT) tablet TAKE 1 TABLET BY MOUTH EVERY DAY 30 tablet 3 07/07/19 24 Active amitriptyline (Elavil) 25 MG tablet TAKE 1 TABLET(25 MG) BY MOUTH AT BEDTIME 30 tablet 08/07/19 24 Active valsartan (Diovan) 160 MG tablet Take 160 mg by mouth Once per day. 07/31/19 24 Active valsartan (Diovan) 80 MG tablet Take 80 mg by mouth Once per day. 07/31/19 24 Active naloxone (Narcan) 4 mg/0.1 mL nasal sprayIndicatio ns:Chronic low back pain, unspecified back pain laterality, unspecified whether sciatica present Administer 1 spray (4 mg) into affected nostril(s) if needed for opioid reversal. May repeat every 2-3 minutes if needed, alternating nostrils, until medical assistance becomes available. 2 each 3 09/15/19 24 025 Active famotidine (Pepcid) 20 MG tablet Take 1 tablet (20 mg) by mouth 2 times daily. 60 tablet 11 03/02/20 24 025 Active dextran 70-hypromellos e PF (artificial tears) 0.1-0.3 % ophthalmic solutionIndica tions:Abrasion of left cornea, initial encounter Administer 1 drop into the left eye if needed in the morning, at noon, and at bedtime for dry eyes. 35 each 05/13/19 25 026 Active hydroCHLOROthi azide (HYDRODiuril) 25 MG tablet TAKE 1 TABLET(25 MG) BY MOUTH DAILY 30 tablet 11 06/30/19 25 Active Tirzepatide-We ight Management (Zepbound) 5 MG/0.5ML solution auto-injector Inject 0.5 mL (5 mg) under the skin every 7 (seven) days. 2 mL 2 07/02/19 25 025 Active atenolol (Tenormin) 50 MG tablet TAKE 1 TABLET BY MOUTH EVERY DAY 30 tablet 3 07/10/19 25 Active oxyCODONE-acet aminophen (Percocet) 5-325 MG tabletIndicati ons:Chronic low back pain with bilateral sciatica, unspecified back pain laterality Take 1 tablet by mouth every 8 (eight) hours if needed for severe pain for up to 28 days. Do not start before July 30, 2024. 84 tablet 07/31/19 25 025 Active atenolol (Tenormin) 50 MG tablet TAKE 1 TABLET BY MOUTH EVERY DAY 30 tablet 3 03/15/20 24 025 Discontinued oxyCODONE-acet aminophen (Percocet) 5-325 MG tabletIndicati ons:Chronic low back pain with bilateral sciatica, unspecified back pain laterality Take 1 tablet by mouth every 8 (eight) hours if needed for severe pain for up to 28 days. 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 06/13 Osteoarthritis of lumbar spine 08/13/2023 Displacement of lumbar inter vertebral disc without myelopathy 05/28/2023 Lumbar post-laminectomy syndrome 05/28/2023 Lumbosacral radiculitis 05/28/2023 Chronic constipation 10/22/2022 GERD (gastroesophageal reflux disease) Hyperplastic polyp of duodenum 10/22/2022 Hyperplastic polyp of stomach 10/22/2022 Neurostimulator device in situ 10/22/2022 Overview (10/22/2022): LS, done 2018 at [facility] with Dr Vasquez Essential hypertension 03/02/2022 History of spinal surgery 03/02/2022 History of lumbosacral spine surgery 03/02/2022 History of colon polyps 03/02/2022 NSAID long-term use 03/02/2022 Obstructive sleep apnea syndrome 02/11/2018 Chest pain 11/10/2017 Vitamin D deficiency 04/18/2017 Paresis of single lower extremity 10/05/2015 Chronic low back pain 12/09/2014 Mixed anxiety and depressive disorder 12/09/2014 Resolved Problems Problem Noted Date Diagnosed Date Resolved Date Lumbosacral spondylosis without myelopathy 05/28/2023 08/13/2023 Colon polyps 10/22/2022 05/28/2023 Acute exacerbation of chronic low back pain 09/25/2022 08/13/2023 Assessment & Plan (09/25/2022 2:57 PM EDT): D/ w patient re stretching exercises, apply heat to affected area Use flexeril tid prn pain + Tylenol prn + Lidocaine patch Refer to PT and pain clinic in case sxs do not resolve (he can cancel appt if he doesn't want/need to go to pain clinic_ Obesity (BMI 30.0-34.9) 03/02/2022/3 Palpitations 11/10/2017 05/28/2023 Urinary incontinence 06/04/2016 024 Hypertensive disorder 12/09/20142023 Encounters Date Type Department Care Team Description 07/28/2024 Refill [facility] [address] [place] [address] Juan Avila MD Chronic low back pain with bilateral sciatica, unspecified back pain laterality 07/28/2024 Refill [facility] [address] [place] [address] Juan Avila MD Chronic low back pain with bilateral sciatica, unspecified back pain laterality 07/10/2024 Refill [facility] [address] [place] [address] Juan Avila MD 07/09/2024 1:00 PM EDT Telemedicine [facility] [address] [place] [address] NameJuan MD Morbid obesity (CMS/HCC) (Primary Dx); ANDREW (obstructive sleep apnea); Chronic low back pain with bilateral sciatica, unspecified back pain laterality 07/09/2024 Refill [facility] [address] [facility] [place] [address] Juan Avila MD 07/09/2024 Travel 07/09/2024 Telephone [facility] [address] [facility] [place] [address] Kevin Jefferson [place] Appointment Request 07/09/2024 Refill [facility] [address] [place] [address] Juan Avila MD 07/02/2024 Telephone [facility] [address] [place] [address] Juan Avila MD Med Refill 07/02/2024 Refill [facility] [address] [place] [address] Juan Avila MD Chronic low back pain with bilateral sciatica, unspecified back pain laterality 07/01/2024 9:00 AM EDT Clinical Support [facility] [address] [place] [address] Paola Mack RN Chronic low back pain with bilateral sciatica, unspecified back pain laterality (Primary Dx); 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 [address] Juan Avila MD 06/24/2024 Telephone [facility] [address] [facility] 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 [place] [address] Juan Avila MD Med Refill 05/13/2024 1:15 PM EST Office Visit [facility] [place] [address] Pamella Polk ANP Abrasion of left cornea, initial encounter (Primary Dx); Pinguecula of left eye 05/13/2024 Travel 05/13/2024 Telephone [facility] [place] [address] Juan Avila MD Nurse Triage 05/07/2024 Refill [facility] [place] [address] Juan Avila MD Chronic low back pain with bilateral sciatica, unspecified back pain laterality 05/06/2024 10:00 AM EST Clinical Support [facility] [place] [address] Paola Mack RN Chronic low back pain, unspecified back pain laterality, unspecified whether sciatica present (Primary Dx) 05/06/2024 Telephone [facility] [place] [address] Juan Avila MD Prior Authorization ([place]) 05/06/2024 Refill [facility] 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 [place] [address] Paola Mack RN Recommend FIELD BROOMER Tier 1 05/05/2024 Telephone [facility] [place] [address] Margarita MD Juan Appointment Request from Last 3 Months Immunizations Name Administration Dates Next Due Influenza injectable quadriv alent IIV4 with preservative 02/11/2018,05/30/2017,03/06/2016,2014 Influenza injectable quadriv alent preservative free 02/26/2023,01/03/2021,03/15/2019 Influenza, seasonal, injecta ble, preservative free 03/02/2024 Moderna Covid-19 Vaccine 12+ 07/21/2020,06/22/19 21 Tdap 03/06/2016 Social History Tobacco Use Types Packs/Day Years Used Date Smoking Tobacco: Former Cigarettes 0 04/14/2000 - 04/14/2009 Tobacco Cessation:Counseling Given: Not Answered Alcohol Use Standard Drinks/Week Comments Not Currently 2 (1 standard drink = 0.6 oz pur e alcohol) Stopped one month ago Depression Answer Date Recorded Patient Health Questionnaire-9 Score 5 03/02/2024 Patient Health Questionnaire-9 Score 5 03/02/2024 Last PHQ-9: Questionnaire Data Not on file 1 05/02/2023 Housing Stability Answer Date Recorded What is your housing situation today? I have teresa lisha 11/18/[address] you li [...] Orientation Straight 02/11/2022 10 :28 AM EDT Last Filed Vital Signs Vital Sign Reading Time Taken Comments Blood Pressure 102/61 05/13/2024 1:20 PM EST Pulse 76 05/13/2024 1:20 PM EST Temperature 36.7 ??C (98 ??F) 05/13/2024 1:20 PM EST Respiratory Rate 14 05/13/2024 1:20 PM EST Oxygen Saturation 98% 05/13/2024 1:20 PM EST Inhaled Oxygen Concentration - - Weight 130 kg (286 lb 12.8 oz) 05/13/2024 1:20 P M EST Height 180.3 cm (5' 11 ) 03/02/2024 9:03 AM EST Body Mass Index 40 03/02/2024 9:03 AM EST Plan of Treatment Upcoming Encounters Date Type Department Care Team (Late st Contact Info) Description 08/04/2024 9:30 AM EDT Clinical Support [facility] [address] [place] [id number] Health Maintenance Due Date Last Done Comments HIV Screening 1981 Family Planning (PISQ) 1996 Hepatitis C Screening 06/26/1999 Hepatitis B Vaccines (1 of 3 - 19+ 3-dose series) 2000 COVID-19 Vaccine ( season) 2023 07/21/2020, 06/21/2020 SDOH Screening 11/17/2024 11/18/2023 Alcohol/Substance Use Screening 03/02/2025 03/02/2024 Depression Screening 03/02/2025 03/02/2024, 03/02/20 24 Tobacco Screening 05/13/2025 05/13/2024 Lipid Panel 06/19/2025 06/19/2020 DTaP/Tdap/Td Vaccines (2 - Td or Tdap) 03/06/2026 03/06/2016 Zoster Vaccines (1 of 2) 06/26/2031 RSV Patients and Patients Aged 60 years or older (1 - 1-dose 75+ series) 2056 Influenza Vaccine Completed 03/02/2024, , 01/03/2021, Additional history exists HIB Vaccines Aged Out No longer eligi [...] patient's age to complete this topic Meningococcal Vaccine Aged Out No neftali jenny eligible based on patient's age to complete this topic Pneumococcal Vaccine: Pediatrics (0 to 5 Years) and At-Risk Patients (6 to 49) Years) Aged Out No longer eligible based on patient's age to complete this topic RSV under 20 months Aged Out No longe r eligible based on patient's age to complete this topic Rotavirus Vaccines Aged Out No longer eligible based on patient's age to complete this topic Procedures Procedure Name Priority Date/Time Associated Diagnosis Comments POCT WILLI-14 URINE DRUG SCREEN Routine 07/01/2024 8:39 AM EDT Chronic low back pain with bilateral sciatica, unspecified back pain laterality POCT WILLI-14 URINE DRUG SCREEN Routine 06/07/2024 8:39 AM EST Chronic low back pain, unspecified back pain laterality, unspecified whether sciatica present POCT WILLI-14 URINE DRUG SCREEN Routine 05/06/2024 8:46 AM EST Chronic low back pain, unspecified back pain laterality, unspecified whether sciatica present LIPID PANEL, STANDARD Routine 06/19/2020 9:23 AM EST from Last 3 Months or Most Recently Relevant to Health Maintenance Results * POCT WILLI-14 Urine Drug Screen (07/01/2024 8:39 AM EDT) Only the most recent of3 resultswithin the time period is included. Oxycodone Screen, Urine Positive Urine Urine specimen obtained by clean catch procedure / Unknown 07/01/2024 8:39 AM EDT Narrative Paola Mack RN - 07/01/2024 8:39 AM EDT UTOX cup Lot#[id number] Exp. 12/01/25 Internal Pass Control us Juan Avila MD POINT OF CARE TEST ENTER/EDIT OR DERABLES Final Result * (ABNORMAL) LIPID PANEL, STANDARD (06/19/2020 9:23 AM EST) Chol/HDLC Ratio 4.2 <5.0 (calc) [facility] Cholesterol, Total 137 <200 mg/dL [facility] HDL Cholesterol 33(L) > OR = 40 mg/dL [facility] LDL Cholesterol 80 mg/dL (calc) [facility] Comment: Reference range: <100 ?? Desirable range <100 mg/dL for primary prevention; ?? <70 mg/dL for patients with CHD or diabetic patients ?? with > or = 2 CHD risk factors. ?? LDL-C is now calculated using the Ronald ?? calculation, which is a validated novel method providing ?? better accuracy than the Friedewald equation in the ?? estimation of LDL-C. ?? Alejandro MCCORD et al. JANEY. 2013;310(19): 7907-7105 ?? (http://education.Socialtyze.com/faq/AYT580) Non-HDL Cholesterol 104 <130 mg/dL (calc) [facility] Comment: For patients with diabetes plus 1 major ASCVD risk ?? factor, treating to a non-HDL-C goal of <100 mg/dL ?? (LDL-C of <70 mg/dL) is considered a therapeutic ?? option. Triglycerides 144 <150 mg/dL [facility] 06/19/2020 9:23 AM EST us Juan Avila MD LAB BLOOD ORDERABLES Final Resul t [facility] [address] from Last 3 Months or Most Recently Relevant to Health Maintenance Insurance NANNETTE Ghosh [id number] FORMERLY [facility] ONE CARE < 65 LILLY AVALOS [id number] Care Teams Psychological Operations Officer Relationship Specialty Start Date End Date Name, MD Juan [address] [place] [id number] PCP - General Family Medicine 09/06/15
--- OUTSIDE RECORDS SUMMARY | 2024-08-03 08:36 | XMS_ITS | Data Portability ---
Author Organization [facility] Pain Managem [facility], PAIN OFFICE Address [address] [facility] [address] [place] [address] Care Team Providers Care Head Banquet Waitress Name Role Phone MARK MANN Primary Care Provider Assessment Encounter Date Assessment Date Assessment LastModified by Organization Details LastModified Time 07/06/2015 07/06/2015 Marino Fine is a 35 year old man with complaints of low back pain radiating into left lower extremity. He is S/P Back surgery at [place] and a repeat back surgery in [place]. He states he had some improvement in his left lower extremity? ? ?pain S/P back surgery. On Exam, he has a positive straight leg raising test on the left. Limited range of motion of the lumbar spine is present. He has signed an authorization for release of information from the surgeon at [place]. I will review the information and formulate further plans. He was advised to continue with a home exercise plan . I have discussed the importance of strengthening his core muscles. [email or web address] Not available 07/20/2015 09:11:33 07/20/2015 07/20/2015 Marino Fine is a 35 year old man with complaints of low back pain radiating into left lower extremity. He is S/P L5-S1 fusion at [place] and a revision of L5-S1 PSIF with Left L5 nerve root decompression on 03/01/2015 in [place]. He states he had some improvement in his left lower extremity? ? ?pain S/P back surgery. On exam, he has a positive straight leg raising test on the left. Limited range of motion of the lumbar spine is present. I recommend a trial of lumbar epidural steroid injection under fluoroscopic guidance. He states he does not wish to proceed presently. He is being seen at [facility] for his neck pain and shoulder pain. I have discussed that it is in his best interest to be seen at one pain center. Since he is having EMG/NCV study at [facility] for his neck and shoulder pain. I recommend continuing his treatment there for his low back pain as well. He was advised to continue with a home exercise plan . I have discussed the importance of strengthening his core muscles. [email or web address] Not available 07/25/2015 09:30:42 09/19/2015 09/19/2015 Marino Fine is a 35 year old man with complaints of low back pain radiating into left lower extremity. He is S/P L5-S1 fusion at [place] and a revision of L5-S1 PSIF with Left L5 nerve root decompression on 03/01/2015 in [place]. He states he had some improvement in his left lower extremity? ? ?pain S/P back surgery. On exam, he has a positive straight leg raising test on the left. Limited range of motion of the lumbar spine is present. I recommend a second opinion with a surgeon . I have advised him to discuss a second opinion with his PCP. I also recommend aquatic physical therapy at [facility] in [place], [place]. He needs to follow up in 4 weeks after starting physical therapy. I have explained that I do not prescribe opioid pain medication. He should discuss the continuation of opioid pain medication with his PCP. [email or web address] Not available 09/27/2015 14:27:21 Plan of Treatment Reminders Order Date Submit Date Provider Last Modified By Organization Details Last Modified Time Details Appointments None recorded. Lab None recorded. Referral physical therapist referral - [facility] Thank you. 2015 016 [email or web address] Not available 6 11:40:55 Procedures None recorded. Surgeries None recorded. Imaging None recorded. Medication Orders None recorded. Patient TargetsNo targets recorded. Patient Instructions Encounter Date Encounter Id Patient Instructions Last Modified By Organization Details Last Modified Time 07/06/2015 [id number] He was advised against bed rest lasting longer than four days and to continue activities as tolerated. [email or web address] Not available 07/20/2015 09:09:37 07/20/2015 [id number] He was advised against bed rest lasting longer than four days and to continue activities as tolerated. [email or web address] Not available 07/25/2015 09:01:58 09/19/2015 [id number] He was advised against bed rest lasting longer than four days and to continue activities as tolerated. [email or web address] Not available 09/27/2015 14:21:22 Reason for Referral [facility] Thank you. Referring Physician: Stewart Moyer, Pain Management, Encounter Date: 09/19/2015 Problems Name Problem SNOMED Code Status Onset Date Resolution Date Notes Provider Name and Address Organization Details Recorded Time Lumbar post-laminecto my syndrome 976888282 Active Stewart le MD [address] , [address], [facility] [place], [address], [place] [facility] 6 14:27:20 Displacement of lumbar intervertebral disc without myelopathy 91797684 Active Stewart le MD [address] , [address], [facility] [place], [address], [place] [facility] 6 14:27:20 Lumbosacral spondylosis without myelopathy 80465794 Active Stewart le MD [address] , [address], [facility] [place], [address], [place] - [facility] 6 14:27:20 Lumbosacral radiculitis 48655025 Active Stewart le MD [address] , [address], [place], [address], [place] - [facility] 6 14:27:20 Problem Notes None recorded. Procedures Surgical History Date Name Laterality Status Provider Name and Address Organization Details Recorded Time Lumbar Fusion completed Angela Richards [place] - [facility] 07/06/2015 14:51:04 Arthroscopic Surgery completed Angela Richards [place] - [facility] 07/06/2015 14:51:04 Imaging Results None recorded. Procedure Notes None recorded. Medical Equipment None Reported. Allergies Allergen ID Allergen Name Allergen Category Reaction Reaction Severity Criticality Documentation Date Start Date Code Code System Note Provider Name and Address Organization Details Recorded Time 68596 sodium hypochlor ite environme nt,medica tion hives rash respirato ry distress Not available Not available Not available Not available 07/06/2015 9881 RxNorm Angela mei, [place] - [facility] 14:51:05 Medications Name Sig Start Date Stop Date Status Note LastModified by Organization Details LastModified Time therapeutic moisturizing cream APPLY AA 3 TO 4 TIMES D active Not Available Not Available No t Available venlafaxine hcl er 75 mg cp24 active Not Available Not Available Not Available gabapentin 800 mg tabs active Not Available Not Available Not Available naproxen 375 mg tabs active Not Available Not Available Not Available oxycodone/ac etaminophen 10-325 mg tabs active Not Available Not Available Not Available bupropion hcl sr 150 mg tb12 active Not Available Not Available Not Available clonazepam 1 mg tabs active Not Available Not Available Not Available hydrochlorot hiazide 25 mg tabs active Not Available Not Available Not Available atenolol/chl orthalidone 50-25 mg tabs active Not Available Not Available Not Available diazepam 5 mg tabs active Not Available Not Available Not Available gabapentin 300 mg caps active Not Available Not Available Not Available oxycodone hcl 10 mg tabs active Not Available Not Available Not Available blood pressure monitor 7 series soumya active Not Available Not Available Not Available mupirocin 2 % oint active Not Available Not Available Not Available bupropion HCl SR 150 mg tablet,12 hr sustained-re lease TK 1 T PO QD FOR DEPRESSION active Not Available Not Available N ot Available venlafaxine ER 75 mg capsule,exte nded release 24 hr TK 1 C PO QD WITH FOOD FOR DEPRESSION active Not Available Not Available N ot Available naproxen 375 mg tablet active Not Available Not Available No t Available famotidine 40 mg tablet active Not Available Not Available Not Available clonazepam 1 mg tablet active Not Available Not Available No t Available atenolol 50 mg-chlorthal idone 25 mg tablet TK 1 T PO QD active Not Available Not Available No t Available venlafaxine ER 150 mg capsule,exte nded release 24 hr active Not Available Not Available Not Available tramadol 50 mg tablet active Not Available Not Available No t Available oxycodone-ac etaminophen 5 mg-325 mg tablet active Not Available Not Available Not Available famotidine 20 mg tablet TK 1 T PO BID active Not Available Not Available No t Available oxycodone-ac etaminophen 10 mg-325 mg tablet Take 1 tablet every 12 hours by oral route. active Not Available Not Available Not Available gabapentin 800 mg tablet active Not Available Not Available Not Available gabapentin 300 mg capsule TK 1 C PO TID active Not Available Not Available No t Available hydrochlorot hiazide 25 mg tablet active Not Available Not Available No t Available mupirocin 2 % topical ointment active Not Available Not Available Not Available loratadine 10 mg tablet active Not Available Not Available Not Available naproxen 500 mg tablet active Not Available Not Available No t Available diazepam 5 mg tablet active Not Available Not Available No t Available Fiber Therapy (methylcellu lose) 500 mg tablet TK 1 T PO D HS active Not Available Not Available No t Available oxycodone 10 mg tablet active Not Available Not Available No t Available blood pressure test kit-large cuff active Not Available Not Available Not Available Vitals Date Recorded Body height Body mass index (BMI) Oxygen saturation Oxygen saturation in Arterial blood by Pulse oximetry Heart rate Body weight Systolic blood pressure Diastolic blood pressure Provider Name and Address Organization Details Last Updated DateTime 6 180.34 cm 37.5 kg/m2 98 % 98 % 69 /min 306237. 37571 g 111 mm[Hg] 71 mm[Hg] Angela Richards [facility] Pain Management 6 14:51:05 Date Recorded Oxygen saturation Oxygen saturation in Arterial blood by Pulse oximetry Heart rate Systolic blood pressure Diastolic blood pressure Provider Name and Address Organization Details Last Updated DateTime 6 97 % 97 % 72 /min 111 mm[Hg] 74 mm[Hg] Angela [facility] Pain Management 6 10:10:15 Date Recorded Heart rate Oxygen saturation Oxygen saturation in Arterial blood by Pulse oximetry Systolic blood pressure Diastolic blood pressure Provider Name and Address Organization Details Last Updated DateTime 6 77 /min 97 % 97 % 120 mm[Hg] 79 mm[Hg] [facility] 6 11:47:15 Social History Question Answer Notes LastModified by Organizat ion Details LastModified Time Tobacco Smoking Status Former Smoker Quit x 4 years Not Available [employer] 01/28/2020 03:16:10 What Is Your Level Of Alcohol Consumption? None [id number] Information not available 01/28/2020 Which Illicit Or Recreational Drugs Have You Used? No [id number] Information not available 01/28/2020 Live Alone Or With Others? With Others , Daughter And Son [email or web address] Information not available 07/06/2015 GED Yes [email or web address] Information no t available 07/06/2015 Marital Status [email or web address] Inform[employer]ko n not available 07/06/2015 How Many Years Have You Smoked Tobacco? 10 [id number] Information not available 01/28/2020 Sex: Unknown Functional Status None recorded. Mental Status None recorded. Family History Relationship Description Onset Age of this Age Resolved Age Notes LastModified by Organization Details LastModified Time Mother Depressive disorder maln Not available 09/12 14:20:24 Father Dementia theoantan Not availa ble 09/27/2015 14:20:24 Father Hypercholest erolemia theoantan Not available 09/12 14:20:24 Medical History Condition Response Anxiety Disorder Y Headache Y Hypertension Y Depression Y GERD/Reflux Y Past Encounters Encounter ID Performer Location Encounter Start Date Encounter Closed Date Diagnosis/Indication Diagnosis SNOMED-CT Code Diagnosis ICD10 Code Diagnosis Note [id number] Stewart Moyer MD PAIN OFFICE [address] [place] [address] 07/06/2015 13:56:01 07/20/2015 09:12:01 Displacement of lumbar intervertebral disc without myelopathy 10576207 M51.26 Lumbar post-laminectomy syndrome 285632751 M96.1 Lumbosacra l radiculitis 92290868 M54.17 Lumbosacra l spondylosis without myelopathy 37576340 M47.817 [id number] Stewart Moyer MD PAIN OFFICE [address] [place] [address] 07/20/2015 09:46:29 07/25/2015 09:31:24 Lumbosacral spondylosis without myelopathy 96369573 M47.817 Displaceme nt of lumbar intervertebral disc without myelopathy 53718141 M51.26 Lumbosacra l radiculitis 69034227 M54.17 Lumbar post-laminectomy syndrome 518103026 M96.1 [id number] Stewart Moyer MD PAIN OFFICE [address] [place] [address] 09/19/2015 11:23:05 09/27/2015 14:27:53 Lumbosacral spondylosis without myelopathy 02278189 M47.817 Displaceme nt of lumbar intervertebral disc without myelopathy 35682507 M51.26 Lumbosacra l radiculitis 08356939 M54.17 Lumbar post-laminectomy syndrome 381679387 M96.1 Health Concerns Section Related Observation LastModified by Organization Detai ls LastModified Time None Recorded Concern Status LastModified by Organization Details LastModified Time None Recorded Advance Directives Directive None Recorded Payers Encounter Date Sequence Insurance Name Policy Number Policy Morales Covered Member ID Morales Member ID Guarantor Name 07/06/2015 2 [place] [facility] Marino Fine [id number] Marino Fine 07/06/2015 1 [employer] (MEDICAID REPLACEMENT - HMO) Marino Fine [id number] Marino Fine 07/20/2015 2 [place] [facility] Marino Fine [id number] Marino Fine 07/20/2015 1 [employer] (MEDICAID REPLACEMENT - HMO) Marino Fine [id number] Marino Fine 09/19/2015 2 [place] [facility] Marino Fine [id number] Marino Fine 09/19/2015 1 [employer] (MEDICAID REPLACEMENT - HMO) Marino Fine [id number] Marino Fine Notes Date Note Type Note Provider Name and Address Organization Details Recorded Time 07/06/2015 text/html Pain Management L-spineReported bypatient.Location: Marino Fine is a 35 year old man with complaints of low back pain radiating into left lower extremity. The pain started in 2013 . He is S/P surgery on 07/22/2013 at [place] and then had surgery in [place] on 03/01/2015 and has persistent pain. Quality:throbbing;t ightness;numbess;bu rning;aching;sharp; tingling; He describes the pain in his low back as sharp stabbing pain which occasionally radiates into left lower extremity with numbness. He had some improvement of left lower extremity pain after 2nd surgery in [place]. Severity:current pain level high/10; worst pain high/10;worsening;i nterference with sleep Duration:constant Onset/Timing:gradua l onset; chronic Context:cannot identify Alleviating Factors:medication; lying down Aggravating Factors:flexion; standing; walking Associated Symptoms:no bladder compromise; no bowel compromise;numbness Radiation:left LE Work Related:no ADL (Activities of Daily Living):walking; sweeping; mopping Prior EMG:none Previous Surgeryfusion; laminectomy Previous Injections:none Previous PT:did not help; He had physical therapy at [facility]. Previous pharmacist critical care:helped bhavana Moyer MD [address] , [address], [place], [address], [facility] Pain Management 07/20/2015 12:00:07 07/20/2015 text/html He is here for a follow up. I have reviewed records from [facility]. He has history of L5-S1 fusion in [place] in 2012 . He is S/P revision of L5-S1 PSIF with Left L5 nerve root decompression on 03/01/2015. He states he had two steroid injections in [place] and had a bad experience. He states he was in a wheel chair prior to the back surgery at [facility] and now he is using a cane . He feels he has improved but continues to have persistent low back and leg symptoms. He is complaining of bilateral shoulder pain, left is greater than right . He states he is being seen at [facility]. He had an EMG/NCV study done. He thinks he has bilateral carpal tunnel syndrome. Stewart Moyer MD [address] , [address], [place], [address], [facility] Pain Management 07/25/2015 11:55:06 09/19/2015 text/html He is here for a follow up. He is accompanied by his for today's visit. He states he has seen his surgeon at [facility] and has been discharged from his office. He states he has continued pain in his low back . He is complaining of pain in the region of the scar with swelling. He states his PCP had ordered an ultrasound which showed heterogeneous attentuation of the soft tissue just deep to the surgical scar. No defined solid or cystic soft tissue mass evident . His states they showed the report to surgeon and that he did not comment on the report. They were advised to see a pain management doctor. He is on percocet and states he has some pain benefit . He is unable to do any activities around the house due to pain. He had a bad experience with injections in [place]. Stewart Moyer MD [facility] [address], [facility] [place], [address], [place] [facility] 09/28/2015 13:26:00
--- OUTSIDE RECORDS SUMMARY | 2024-08-03 08:36 | XMS_ITS | Encounter Summary ---
Author Organization [employer] Address [address] [place] [address] 7 [place] [address] Care Team Providers Care Mail Clerk Bills Name Role Phone Name, Juan STORY Primary Care Provider [phone] Reason for Visit * Reason Onset Date Comments Med Refill 07/02/2024 Encounter Details Date Type Department Care Team ([facility] st Contact Info) Description 07/02/2024 Telephone [facility] MEDICINE [address] [place], [place] [phone] Name, MD Juan [address] [place], [place] [phone] Med Refill Social History Tobacco Use Types Packs/Day Years [...] as of this encounter Miscellaneous Notes * Telephone Encounter - Sana Cabrera - 07/02/2024 10:18 AM EDT TC from pt requesting medication refill. Medications needing refill : oxyCODONE-acetaminophen (Percocet) 5-325 MG tablet To be sent to: [id number] [place], [place] - [address] [place] [address] AT [facility]/[address] documented in this encounter Plan of Treatment Upcoming Encounters Date Type Department Care Team (Late st Contact Info) Description 08/04/2024 9:30 AM EDT Clinical Support [facility] MEDICINE [address] [place] [address] documented as of this encounter Visit Diagnoses Not on filedocumented in this encounter Additional Health Concerns Assessment Noted Time PHQ-9 Depression Total Score: 5 03/02/20 24 9:23 AM EST documented as of this encounter Care Teams Mail Clerk Bills Relationship Specialty Start Date End Date Name, MD Jaun [address] [place] [address] PCP - General Family Medicine 09/06/15 documented as of this encounter
--- OUTSIDE RECORDS SUMMARY | 2024-08-03 08:36 | XMS_ITS | Encounter Summary ---
Author Organization [employer] Address [address] [place] [address] [address] [place] [address] Care Team Providers Care Swimmer Name Role Phone Name, Juan STORY Primary Care Provider [phone] Reason for Visit * Reason Onset Date Comments Med Refill 07/01/2024 Encounter Details Date Type Department Care Team ([facility] st Contact Info) Description 07/01/2024 Telephone [facility] MEDICINE [address] [place], [place] [phone] Name, MD Juan [address] [place], [place] [phone] Med Refill Social History Tobacco Use Types [...] encounter Miscellaneous Notes * Telephone Encounter - Brian Stewart - 07/01/2024 4:23 PM EDT TC from pt requesting medication refill. Medications needing refill : oxyCODONE-acetaminophen (Percocet) 5-325 MG tablet To be sent to: [facility][id number] [place], [place] - [address] [place] [address] AT [facility] ST/[address] documented in this encounter Plan of Treatment Upcoming Encounters Date Type Department Care Team (Late st Contact Info) Description 08/04/2024 9:30 AM EDT Clinical Support [facility] MEDICINE [address] [place] [address] documented as of this encounter Visit Diagnoses Not on filedocumented in this encounter Additional Health Concerns Assessment Noted Time PHQ-9 Depression Total Score: 5 03/02/20 24 9:23 AM EST documented as of this encounter Care Teams Swimmer Relationship Specialty Start Date End Date Name, MD Juan [address] [place] [address] PCP - General Family Medicine 09/06/15 documented as of this encounter
--- OUTSIDE RECORDS SUMMARY | 2024-08-03 08:36 | XMS_ITS | Encounter Summary ---
Author Organization [employer] Address [address] [place] [address] [address] [place] [address] Care Team Providers Care Valve Grinder Name Role Phone Name, Juan STORY Primary Care Provider [phone] Encounter Details Date Type Department Care Team ([facility] st Contact Info) Description 05/28/2023 Telephone [facility] [address] [place], [place] [phone] Name, MD Juan [address] [place], [place] [phone] Social History Tobacco Use Types Packs/Day Years Used Date Smoking Tobacco: Former Cigarettes 0 04/14/2000 - 04/14/2009 Alcohol Use Standard Drinks/Week Comments Not Currently 2 (1 standard drink = 0.6 oz pur e alcohol) Stopped one month ago Depression Answer Date Recorded Patient Health Questionnaire-9 Score 0 10/22/2022 Housing Stability Answer Date Recorded What is your housing situation today? I have teresa husain 01/30/[address] you li ve. Do you have problems with any of the following? None of the above 01/30/2023 Food Insecurity Answer Date Recorded Within the past 12 months, y ou worried that your food would run out before you got money to buy more: Never True 01/30/2023 Within the past 12 months,th e food you bought just didn't last and you didn't have enough money to get more: Never True Transportation Answer Date Recorded In the past 12 months, has l ack of transportation kept you from medical appts, meetings, work or from getting things needed for daily living? No 01/30/2023 Utilities Answer Date Recorded In the past 12 months, has t he electric, gas, oil or water company threatened to shut off services in your home? No 01/30/2023 Depression Answer Date Recorded Patient Health Questionnaire-2 [...] Description 08/04/2024 9:30 AM EDT Clinical Support [facility] [address] [place] [address] documented as of this encounter Visit Diagnoses Not on filedocumented in this encounter Additional Health Concerns Assessment Noted Time PHQ-9 Depression Total Score: 0 10/23/19 23 9:17 AM EDT documented as of this encounter Care Teams Valve Grinder Relationship Specialty Start Date End Date Name, MD Juan [address] [place] [address] PCP - General Family Medicine 09/06/15 documented as of this encounter
--- OUTSIDE RECORDS SUMMARY | 2024-08-03 08:36 | XMS_ITS | Encounter Summary ---
Author Organization [employer] Address [address] [place] [address] [address] [place] [address] Care Team Providers Care Farm Loan Inspector Name Role Phone Name, Juan STORY Primary Care Provider [phone] Reason for Visit * Reason Comments Med Refill Encounter Details Date Type Department Care Team (Late st Contact Info) Description 04/08/2023 Refill [facility] MEDICINE [address] [place], [place] [phone] Evie Rodriguez MD [address] [place], [place] [phone] Social History Tobacco Use Types Packs/Day Years [...] Description 08/04/2024 9:30 AM EDT Clinical Support [facility] MEDICINE [address] [place] [address] documented as of this encounter Visit Diagnoses Not on filedocumented in this encounter Additional Health Concerns Assessment Noted Time PHQ-9 Depression Total Score: 0 10/23/19 23 9:17 AM EDT documented as of this encounter Care Teams Farm Loan Inspector Relationship Specialty Start Date End Date Name, MD Juan [address] [place] [address] PCP - General Family Medicine 09/06/15 documented as of this encounter
--- OUTSIDE RECORDS SUMMARY | 2024-08-03 08:36 | XMS_ITS | Encounter Summary ---
Author Organization [employer] Address [address] [place] [address] 7 [place] [address] Care Team Providers Care Coding Spec Name Role Phone Name, Juan STORY Primary Care Provider [phone] Reason for Visit * Reason Comments Med Refill Encounter Details Date Type Department Care Team (Late st Contact Info) Description 07/11/2023 Refill [facility] MEDICINE [address] [place], [place] [phone] Name, MD Juan [address] [place], [place] [phone] Social History Tobacco Use Types Packs/Day Years [...] Description 08/04/2024 9:30 AM EDT Clinical Support [facility] MEDICINE [address] [place] [address] documented as of this encounter Visit Diagnoses Not on filedocumented in this encounter Additional Health Concerns Assessment Noted Time PHQ-9 Depression Total Score: 0 10/23/19 23 9:17 AM EDT documented as of this encounter Care Teams Coding Spec Relationship Specialty Start Date End Date Name, MD Juan [address] [place] [address] PCP - General Family Medicine 09/06/15 documented as of this encounter
--- OUTSIDE RECORDS SUMMARY | 2024-08-03 08:36 | XMS_ITS | Encounter Summary ---
Author Organization [employer] Address [address] [place] [address] 7 [place] [address] Care Team Providers Care Photograph Retoucher Name Role Phone Name, Juan STORY Primary Care Provider Reason for Visit * Reason Comments Med Refill Encounter Details Date Type Department Care Team (Late st Contact Info) Description 07/10/2024 Refill [facility] MEDICINE [address] [place], [place] [phone] Name, MD Juan [address] [place], [place] [phone] Social History Tobacco Use Types Packs/Day Years [...] 9:30 AM EDT Clinical Support [facility] MEDICINE [address] [place] [address] documented as of this encounter Visit Diagnoses Not on filedocumented in this encounter Additional Health Concerns Assessment Noted Time PHQ-9 Depression Total Score: 5 03/02/20 24 9:23 AM EST documented as of this encounter Care Teams Photograph Retoucher Relationship Specialty Start Date End Date Name, MD Juan [address] [place] [address] PCP - General Family Medicine 09/06/15 documented as of this encounter
--- OUTSIDE RECORDS SUMMARY | 2024-08-03 08:36 | XMS_ITS | Encounter Summary ---
Author Organization [employer] Address [address] [place] [address] 7 [place] [address] Care Team Providers Care Crm Dynamics Developer Name Role Phone Name, Juan STORY Primary Care Provider [phone] Reason for Visit * Reason Comments Med Refill Encounter Details Date Type Department Care Team (Late st Contact Info) Description 04/08/2023 Refill [facility] MEDICINE [address] [place], [place] [phone] Name, MD Juan [address] [place], [place] [phone] Social History Tobacco Use Types Packs/Day Years [...] 9:30 AM EDT Clinical Support [facility] MEDICINE [address] [place] [address] documented as of this encounter Visit Diagnoses Not on filedocumented in this encounter Additional Health Concerns Assessment Noted Time PHQ-9 Depression Total Score: 0 10/23/19 23 9:17 AM EDT documented as of this encounter Care Teams Crm Dynamics Developer Relationship Specialty Start Date End Date Name, MD Juan [address] [place] [address] PCP - General Family Medicine 09/06/15 documented as of this encounter
--- OUTSIDE RECORDS SUMMARY | 2024-08-03 08:36 | XMS_ITS | Encounter Summary ---
Author Organization [employer] Address [address] [place] [address] 7 [place] [address] Care Team Providers Care Pedodontist Name Role Phone Name, Juan STORY Primary Care Provider [phone] Reason for Visit * Reason Comments Med Refill Encounter Details Date Type Department Care Team (Late st Contact Info) Description 07/09/2024 Refill [facility] MEDICINE [address] [place], [place] [phone] Name, MD Juan [address] [place], [place] [phone] Social History Tobacco Use Types Packs/Day Years [...] Description 08/04/2024 9:30 AM EDT Clinical Support [facility] MEDICINE [address] [place] [address] documented as of this encounter Visit Diagnoses Not on filedocumented in this encounter Additional Health Concerns Assessment Noted Time PHQ-9 Depression Total Score: 5 03/02/20 24 9:23 AM EST documented as of this encounter Care Teams Pedodontist Relationship Specialty Start Date End Date Name, MD Juan [address] [place] [address] PCP - General Family Medicine 09/06/15 documented as of this encounter
--- OUTSIDE RECORDS SUMMARY | 2024-08-03 08:36 | XMS_ITS | Encounter Summary ---
Author Organization [employer] Address [address] [place] [address] 7 [place] [address] Care Team Providers Care Front Clerk Name Role Phone Name, Juan STORY Primary Care Provider [phone] Reason for Visit * Reason Onset Date Comments Med Refill 06/07/2024 Encounter Details Date Type Department Care Team ([facility] st Contact Info) Description 06/07/2024 Refill [facility] MEDICINE [address] [place], [place] [phone] Name, MD Juan [address] [place] [address] Social History Tobacco Use Types Packs/Day Years [...] Description 08/04/2024 9:30 AM EDT Clinical Support [facility] MEDICINE [address] [place] [address] documented as of this encounter Visit Diagnoses Not on filedocumented in this encounter Additional Health Concerns Assessment Noted Time PHQ-9 Depression Total Score: 5 03/02/20 24 9:23 AM EST documented as of this encounter Care Teams Front Clerk Relationship Specialty Start Date End Date Name, MD Juan [address] [place] [address] PCP - General Family Medicine 09/06/15 documented as of this encounter
--- OUTSIDE RECORDS SUMMARY | 2024-08-03 08:37 | XMS_ITS | Encounter Summary ---
Author Organization [employer] Address [address] [place] [address] 7 [place] [address] Care Team Providers Care Licensed Practical Nurse Instructor Name Role Phone Name, Juan STORY Primary Care Provider [phone] Reason for Visit * Reason Onset Date Comments Med Refill 03/15/2024 Encounter Details Date Type Department Care Team ([facility] st Contact Info) Description 03/15/2024 Refill [facility] MEDICINE [address] [place], [place] [phone] Name, MD Juan [address] [place] [address] Social History Tobacco Use Types Packs/Day Years [...] Description 08/04/2024 9:30 AM EDT Clinical Support [facility] MEDICINE [address] [place] [address] documented as of this encounter Visit Diagnoses Not on filedocumented in this encounter Additional Health Concerns Assessment Noted Time PHQ-9 Depression Total Score: 5 03/02/20 24 9:23 AM EST documented as of this encounter Care Teams Licensed Practical Nurse Instructor Relationship Specialty Start Date End Date Name, MD Juan [address] [place] [address] PCP - General Family Medicine 09/06/15 documented as of this encounter
--- OUTSIDE RECORDS SUMMARY | 2024-08-03 08:37 | XMS_ITS | Encounter Summary ---
Author Organization [employer] Address [address] [place] [address] 7 [place] [address] Care Team Providers Care Gold Buyer Name Role Phone Name, Juan STORY Primary Care Provider [phone] Reason for Visit * Reason Onset Date Comments Med Refill 06/30/2024 Encounter Details Date Type Department Care Team ([facility] st Contact Info) Description 06/30/2024 Refill [facility] MEDICINE [address] [place], [place] [phone] Name, MD Juan [address] [place], [place] [phone] Social History Tobacco Use Types Packs/Day Years [...] Description 08/04/2024 9:30 AM EDT Clinical Support [facility] MEDICINE [address] [place] [address] documented as of this encounter Visit Diagnoses Not on filedocumented in this encounter Additional Health Concerns Assessment Noted Time PHQ-9 Depression Total Score: 5 03/02/20 24 9:23 AM EST documented as of this encounter Care Teams Gold Buyer Relationship Specialty Start Date End Date Name, MD Juan [address] [place] [address] PCP - General Family Medicine 09/06/15 documented as of this encounter
== END 2024-08-03 09:05 | disposition home or self-care (01) ==
LOC: HO.HSMS 08:18
PROVIDERS: PCP Internal Medicine Geriatric Medicine; Visit Provider Nurse Practitioner Family
DX: G47.33 Obstructive sleep apnea (adult) (pediatric) (principal); G47.61 Periodic limb movement disorder; E66.01 Morbid (severe) obesity due to excess calories
CPT/HCPCS: 99214

== ENCOUNTER → 2024-08-03 08:17 | Outpatient (BNVA) | payer OTHER, SELFPAY | PROVIDERS: PCP Internal Medicine Geriatric Medicine; Visit Provider Nurse Practitioner Family | DX: G47.33 Obstructive sleep apnea (adult) (pediatric) (principal); G47.61 Periodic limb movement disorder; E66.01 Morbid (severe) obesity due to excess calories; E83.19 Other disorders of iron metabolism; F41.9 Anxiety disorder, unspecified; R25.2 Cramp and spasm; R40.0 Somnolence; Z68.41 Body mass index [BMI] 40.0-44.9, adult; Z99.89 Dependence on other enabling machines and devices | CPT/HCPCS: 99212 ==

== ENCOUNTER 2024-10-21 07:06 | Outpatient (REF) | payer OTHER, SELFPAY ==
--- OUTSIDE RECORDS SUMMARY | 2024-10-21 07:09 | XMS_ITS | Clinical Summary ---
Author Organization [employer] [facility] Address [address] [place] [address] Care Team Providers Care Slicer Machine Operator Name Role Phone Unavailable Primary Care Provider [...] Vaccine (2023-2 5 season) 2023 Influenza Vaccine (#1) 2024 HIB Vaccines Aged Out No longer [...] 5 Years) and At-Risk Patients (6 to 49 Years) Aged Out No longer eligible b ased on patient's age to complete this topic RSV Immunization Patients Un veda 20 months Aged Out No longer eligible b ased on patient's age to complete this topic Varicella Vaccines Aged Out No longer eligible based on patient's age to complete this topic
--- OUTSIDE RECORDS SUMMARY | 2024-10-21 07:09 | XMS_ITS | Encounter Summary ---
Author Organization [employer] Address [address] [place] [address] 7t [place] [address] Care Team Providers Care Merchandiser Seasonal Name Role Phone Name, Juan STORY Primary Care Provider [phone] Encounter Details Date Type Department Care Team ([facility] st Contact Info) Description 05/28/2023 Telephone [facility] MEDICINE [address] [place], [place] [phone] Name, MD Juan [address] [place] [address] Social History Tobacco Use Types Packs/Day Years [...] Care Team (Late st Contact Info) Description 12/21/2024 9:30 AM EDT Office Visit [facility] MEDICINE [address] [place] [address] Name, MD Juan [address] [place] [address] documented as of this encounter Visit Diagnoses Not on filedocumented in this encounter Additional Health Concerns Assessment Noted Time PHQ-9 Depression Total Score: 0 10/23/19 23 9:17 AM EDT documented as of this encounter Care Teams Merchandiser Seasonal Relationship Specialty Start Date End Date Name, MD Juan [address] [place] [address] PCP - General Family Medicine 09/06/15 documented as of this encounter
--- OUTSIDE RECORDS SUMMARY | 2024-10-21 07:09 | XMS_ITS | Data Portability ---
Author Organization [facility], PAIN OFFICE Address [address] [facility] [address] [place] [address] Care Team Providers Care Booking Officer Name Role Phone MARK MANN Primary Care Provider [phone] Assessment Encounter Date Assessment Date Assessment LastModified by Organization Details LastModified Time 07/06/2015 07/06/2015 Marino Fine is a 35 year old man with complaints of low back pain radiating into left lower extremity. He is S/P Back surgery at [place] and a repeat back surgery in [place]. He states he had some improvement in his left lower extremitypain S/P back surgery. On Exam, he has a positive straight leg raising test on the left. Limited range of motion of the lumbar spine is present. He has signed an authorization for release of information from the surgeon at [place]. I will review the information and formulate further plans. He was advised to continue with a home exercise plan . I have discussed the importance of strengthening his core muscles. [email or web address] Not available 07/20/2015 09:11:33 07/20/2015 07/20/2015 Marino Fine is a 35 year old man with complaints of low back pain radiating into left lower extremity. He is S/P L5-S1 fusion at [place] and a revision of L5-S1 PSIF with Left L5 nerve root decompression on 03/01/2015 in [place]. He states he had some improvement in his left lower extremitypain S/P back surgery. On exam, he has a positive straight leg raising test on the left. Limited range of motion of the lumbar spine is present. I recommend a trial of lumbar epidural steroid injection under fluoroscopic guidance. He states he does not wish to proceed presently. He is being seen at [facility] for his neck pain and shoulder pain. I have discussed that it is in his best interest to be seen at one pain center. Since he is having EMG/NCV study at [facility] for his neck and [...] extremity. He is S/P L5-S1 fusion at [place] and a revision of L5-S1 PSIF with Left L5 nerve root decompression on 03/01/2015 in [place]. He states he had some improvement in his left lower extremitypain S/P back surgery. On exam, he has a positive straight leg raising test on the left. Limited range of motion of the lumbar spine is present. I recommend a second opinion with a surgeon . I have advised him to discuss a second opinion with his PCP. I also recommend aquatic physical therapy at [facility] in [place], [place]. He needs to follow up in [...] By Organization Details Last Modified Time 07/06/2015 [id number] He was advised against bed rest lasting longer than four days and to continue activities as tolerated. [email or web address] Not available 07/20/2015 09:09:37 07/20/2015 [id number] He was advised against bed rest lasting longer than four days and to continue activities as tolerated. [email or web address] Not available 07/25/2015 09:01:58 09/19/2015 [id number] He was advised against bed rest lasting longer than four days and to continue activities as tolerated. [email or web address] Not available 09/27/2015 14:21:22 Reason for Referral Aquatic PT Thank you. Referring Physician: Stewart Moyer, Pain Management, Encounter Date: 09/19/2015 Problems Name Problem SNOMED Code Status Onset Date Resolution Date Notes Provider Name and Address Organization Details Recorded Time Lumbar post-laminecto my syndrome 861226372 Active Stewart le MD [address] , [address], [facility] [place], [address], [place] [facility] 6 14:27:20 Displacement of lumbar intervertebral disc without myelopathy 44038775 Active Stewart le MD [address] , [address], [facility] [place], [address], [place] [facility] 6 14:27:20 Lumbosacral spondylosis without myelopathy 99951029 Active Stewart le MD [address] , [address], [facility] [place], [address], [place] [facility] 6 14:27:20 Lumbosacral radiculitis 79697977 Active Stewart le MD [address] , [address], [place], [address], [place] [facility] [...] Name and Address Organization Details Recorded Time 99496 sodium hypochlor ite environme nt,medica tion hives rash respirato ry distress Not available Not available Not available Not available 07/06/2015 9881 [employer] Angela mei, [place] [facility] 14:51:05 Medications Name Sig Start Date Stop Date Status Note LastModified by Organization Details LastModified Time gabapentin 300 mg caps active Not Available Not Available Not Available bupropion hcl sr 150 mg tb12 active Not Available Not Available Not Available therapeutic moisturizing cream APPLY AA 3 TO [...] Pulse oximetry Heart rate Body weight Systolic And Diastolic Provider Name and Address Organization Details Last Updated DateTime 6 180.34 cm 37.5 kg/m2 98 % 98 % 69 /min 642620. 00291 g 111/71 mm[Hg] Angela Richards [facility] Pain Management 6 14:51:05 Date Recorded Oxygen saturation Oxygen saturation in Arterial blood by Pulse oximetry Heart rate Systolic And Diastolic Provider Name and Address Organization Details Last Updated DateTime 07/20/2015 97 % 97 % 72 /min 111/74 mm[Hg] Angela Richards [facility] Pain Management 6 10:10:15 Date Recorded Heart rate Oxygen saturation Oxygen saturation in Arterial blood by Pulse oximetry Systolic And Diastolic Provider Name and Address Organization Details Last Updated DateTime 09/19/2015 77 /min 97 % 97 % 120/79 mm[Hg] Angela Richards [facility] Pain Management 6 11:47:15 Social History Question Answer Notes LastModified by Organizat ion Details LastModified Time Tobacco Smoking Status Former Smoker Quit x 4 years Not Available [email or web address] 01/28/2020 03:16:10 Which Illicit Or Recreational Drugs Have You Used? No [id number] Information not available 01/28/2020 Live Alone Or With Others? With Others , Daughter And Son Information not available 07/06/2015 GED Yes [email or web address] Information no t available 07/06/2015 Marital Status Informatio n not available 07/06/2015 How Many Years Have You Smoked Tobacco? 10 [id number] Information not available 01/28/2020 Sex: Unknown Functional Status Question Answer Note LastModified by Organization D etails LastModified Time What is your level of alcohol consumption? None [id number] Information not available 01/28/2020 Mental Status None recorded. Family History Relationship Description Onset Age of this Age Resolved Age Notes LastModified by Organization Details LastModified Time Mother Depressive disorder [email or web address] Not available 09/12 14:20:24 Father Dementia [email or web address] Not availa ble 09/27/2015 14:20:24 Father Hypercholest erolemia [email or web address] Not available 09/12 14:20:24 Medical History Condition Response Depression Y Anxiety Disorder Y Headache Y GERD/Reflux Y Hypertension Y Past Encounters Encounter ID Performer Location Encounter Start Date Encounter Closed Date Diagnosis/Indication Diagnosis SNOMED-CT Code Diagnosis ICD10 Code Diagnosis Note [id number] Stewart Moyer MD PAIN OFFICE [address] [place] [address] 07/06/2015 13:56:01 07/20/2015 09:12:01 Displacement of lumbar intervertebral disc without myelopathy 30531977 M51.26 Lumbar post-laminectomy syndrome 746115380 M96.1 Lumbosacra l radiculitis 88960835 M54.17 Lumbosacra l spondylosis without myelopathy 55615161 M47.817 [id number] Stewart Moyer MD PAIN OFFICE [address] [place] [address] 07/20/2015 09:46:29 07/25/2015 09:31:24 Lumbosacral spondylosis without myelopathy 75056686 M47.817 Displaceme nt of lumbar intervertebral disc without myelopathy 58369174 M51.26 Lumbosacra l radiculitis 16159833 M54.17 Lumbar post-laminectomy syndrome 365221936 M96.1 [id number] Stewart Moyer MD PAIN OFFICE [address] [place] [address] 09/19/2015 11:23:05 09/27/2015 14:27:53 Lumbosacral spondylosis without myelopathy 51186541 M47.817 Displaceme nt of lumbar intervertebral disc without myelopathy 47136525 M51.26 Lumbosacra l radiculitis 48482545 M54.17 Lumbar post-laminectomy syndrome 153274549 M96.1 Health Concerns Section Related Observation LastModified by Organization Detai ls LastModified Time None Recorded Concern Status LastModified by Organization Details LastModified Time None Recorded Advance Directives Directive None Recorded Payers Insurance Date Sequence Insurance Name Policy Number Policy Morales Covered Member ID Morales Member ID Guarantor Name 09/16/2015 2 [place] [facility] Marino Fine [id number] Marino Fine 09/16/2015 1 [employer] (MEDICAID REPLACEMENT - HMO) Marino Fine [id number] Marino Fine Notes Date Note Type Note Provider Name and Address Organization Details Recorded Time 07/06/2015 text/html Pain Management L-spineReported bypatient.Location: Marino Fine is a 35 year old man with complaints of low back pain radiating into left lower extremity. The pain started in 2013 . He is S/P surgery on 07/22/2013 at [place] and then had surgery in [place] on 03/01/2015 and has persistent pain. Quality:throbbing;t ightness;numbess;bu rning;aching;sharp; tingling; He describes the pain in his low back as sharp stabbing pain which occasionally radiates into left lower extremity with numbness. He had some improvement of left lower extremity pain after 2nd surgery in [place]. Severity:current pain level high/10; worst pain high/10;worsening;i nterference with sleep Duration:constant Onset/Timing:gradua l onset; chronic Context:cannot identify Alleviating Factors:medication; lying down Aggravating Factors:flexion; standing; walking Associated Symptoms:no bladder compromise; no bowel compromise;numbness Radiation:left LE Work Related:no ADL (Activities of Daily Living):walking; sweeping; mopping Prior EMG:none Previous Surgeryfusion; laminectomy Previous Injections:none Previous PT:did not help; He had physical therapy at [facility] PT. 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 I have reviewed records from [facility]. He has history of L5-S1 fusion in [place] in 2013 . He is S/P revision of L5-S1 PSIF with Left L5 nerve root decompression on 03/01/2015. He states he had two steroid injections in [place] and had a bad experience. He states he was in a wheel chair prior to the back surgery at [facility] and now he is using a cane . He feels he has improved but continues to have persistent low back and leg symptoms. He is complaining of bilateral shoulder pain, left is greater than right . He states he is being seen at [facility]. He had an EMG/NCV study done. He thinks he has bilateral carpal tunnel syndrome. Stewart Moyer MD [address] , [address], [place], [address], [facility] Pain Management 07/25/2015 11:55:06 09/19/2015 text/html He is here for a follow up. He is accompanied by his for today's visit. He states he has seen his surgeon at [facility] and has been discharged from his [...] had a bad experience with injections in [place]. Stewart Moyer MD [address] , [address], [place], [address], [facility] Pain Management 09/28/2015 13:26:00
[2024-10-21 07:20] LABS: MANUAL DIFF FLAG NO
[2024-10-21 07:42] LABS: Hematocrit 42.9 % (42.0-52.0); Hemoglobin 14.9 g/dl (14.0-18.0); Imm Gran Abs Auto 0.03 X10*3/uL (0.00-0.03); Imm Gran Pct Auto 0.5 % (0.0-0.4); Lymphocytes Absolute Auto 1.5 X10*3/uL (1.2-4.9); Mean Corpuscular HGB Conc 34.7 g/dl (31.0-36.0); Mean Corpuscular Hemoglobin 28.7 pg (27.0-33.0); Mean Corpuscular Volume 82.5 fL (80.0-98.0); NRBC Abs Auto 0.000 X10*3/uL (0.0-0.012); NRBC Pct Auto 0.0 /100WBC (0.0-0.2); Platelet Count 217 X10*3/uL (160-400); Red Blood Count 5.20 X10*6/uL (4.60-5.80); White Blood Count 5.9 X10*3/uL (4.8-10.8)
[2024-10-21 08:15] LABS: Alanine Aminotransferase 43 U/L (0-40); Albumin Level 4.7 g/dL (3.5-5.0); Alkaline Phosphatase 65 U/L (39-117); Anion Gap 11 (12-20); Aspartate Amino Transferase 32 U/L (5-37); Blood Urea Nitrogen 17 mg/dL (9-16); Calcium 9.4 mg/dL (8.4-10.2); Carbon Dioxide 28 mmol/L (22-29); Chloride 107 mmol/L (96-108); Estimated Glomerular Filt Rate > 60; Iron 63 mcg/dL (45-160); Magnesium 2.0 mg/dL (1.6-2.6); Percent Iron Saturation 24 % (15-50); Potassium 3.9 mmol/L (3.3-5.1); Sodium 142 mmol/L (135-145); Total Iron Binding Capacity 263 mcg/dL (228-428); Total Protein 7.8 g/dL (6.5-8.0); Unsaturated Iron Binding 200 ug/dL
[2024-10-21 08:30] LABS: Ferritin 329 ng/mL (20-250)
[2024-10-21 08:46] LABS: Folate 10.7 ng/mL (> or = 4.0); Vitamin B12 440 pg/mL (200-900)
[2024-10-25 15:32] LABS: Vitamin D 25-OH, D2 <4 ng/mL; Vitamin D 25-OH, D3 22 ng/mL; Vitamin D 25-OH, Total 22 ng/mL (30-100)
== END 2024-10-21 07:07 | disposition home or self-care (01) ==
LOC: HO.LAB 07:06
PROVIDERS: PCP Internal Medicine Geriatric Medicine; Visit Provider Nurse Practitioner Family
DX: E66.01 Morbid (severe) obesity due to excess calories (principal); G47.33 Obstructive sleep apnea (adult) (pediatric); G47.61 Periodic limb movement disorder; R40.0 Somnolence; R25.2 Cramp and spasm; F41.9 Anxiety disorder, unspecified; E83.19 Other disorders of iron metabolism
CPT/HCPCS: 36415; 80053; 82306; 82607; 82728; 82746; 83540; 83735; 84207; 84443; 85025

== ENCOUNTER 2024-10-28 12:10 | Outpatient (AMB) | payer OTHER, SELFPAY ==
--- NOTE | 2024-10-28 12:27 | MHC.OFFVIS ---
Vital Signs 10/28/24 12:28 Height 5 ft 11 in Weight 280 lb BMI 39.0 BP 104/60 Blood Pressure Location Lt brachial Position Sitting Pulse 77 Pulse Oximetry (%) 96 Oxygen Delivery Method Room Air Intake Visit Reasons: constipation/Lore pt Intake Note: Patient complex follow up for Constipation/Lore dieudonne was 08/15/2022 and last EGD/Colonoscopy was 07/31/2022 with 3 to 4 yrs recall. Patient cc: acid reflux on and off, and abdominal bloating. Omeprazole refill. Patient is confuse he is thinking we are going to talk about Wegovy injection. ?? 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 Shift Name: Iván [id number] Accompanied by: Self / Same As Patient Allergies Bleach (Sodium Hypochlorite) Allergy (Mild, Verified 10/28/24 12:27) Abdominal Pain tramadol (TRAMADOL) Adverse Reaction (Intermediate, Verified 10/28/24 12:27) HTN Medication List - Last Reconciled 10/28/24 by Mallory Akers CNP atenolol 50 mg PO DAILY bupropion HCl XL 300 mg PO QAM docusate sodium (Colace) 200 mg (2 x 100 mg) PO BEDTIME meloxicam 15 mg PO DAILY omeprazole 20 mg PO DAILY 30 days oxycodone-acetaminophen 5-325 mg 1 tab PO TID PRN prazosin 1 mg PO BEDTIME tirzepatide (weight loss) (Zepbound) 5 mg subcut QWEEK valsartan 160 mg PO DAILY HPI HPI constipation/Lore pt: Details: Patient is a 44-year-old male with PMH of HTN, depression, anxiety and GERD. Last visit with LILLY Martell 08/15/2022 for follow up after endoscopy. Marino presents for a follow-up on his constipation and acid reflux management. His upper endoscopy and colonoscopy in August 2022 revealed benign polyps in the stomach and colon. Constipation is managed with a stool softener; stools are primarily type 4 on the [place] Stool Form Scale, indicating normalcy. However, stools are reported as sometimes hard or soft. He reports stool regularity, typically once or twice daily. For acid reflux, omeprazole has proven effective, while a previous trial with famotidine, was ineffective. He previously experienced back pain managed with an nerve stimulator, currently without battery power, with plans for renewal surgery underway. Patient denies: n/v, appetite changes, pyrosis, regurgitation, dysphasia, unintentional wt loss, ab pain or melena/hematochezia. Social hx: -denies ETOH use -denies recreational drug use -former smoker, cessation 2010 [facility] Medical History (Updated 10/28/24 @ 13:36 by Mallory Akers CNP) Obesity (BMI 30-39.9) Colon polyps Depression Anxiety HTN (hypertension) GERD (gastroesophageal reflux disease) Surgical History Hx of oral surgery History of esophagogastroduodenoscopy (EGD) S/P laparoscopic appendectomy History of back surgery History of colonoscopy Family History Father History of dementia Mother Family history of high blood pressure Social History Household Members Other:: Alcohol intake: never Comment: refused bed alarm Patient Tobacco Use Status: Former Tobacco user service: No Current occupational status: unemployed Review of Systems Const Reports as per HPI ENT Reports as per HPI Card Reports as per HPI Resp Reports as per HPI GI Reports as per HPI Reports as per HPI Physical Exam Vital Signs: Oxygen Delivery Method Room Air 10/28/24 12:28 BMI result Body Mass Index 39.0 Const General: healthy appearing, no acute distress and well developed Nutritional Appearance: obese Orientation/consciousness: patient oriented x3 HEENT Head: Yes normal to inspection, Yes normocephalic and Yes atraumatic Face and sinus: Yes normal facial exam Eyes General: appearance normal, both eyes and all related structures Neck Neck: Yes normal visual inspection Resp Effort & Inspection: normal respiratory effort, able to speak in complete sentences, no tracheal deviation and symmetric chest movement Auscultation: clear to auscultation bilaterally Cardio Jugular venous distension: no JVD Rate: regular rate Rhythm: regular rhythm Heart sounds: S1 normal heart sound present, S2 normal heart sound present, no gallops and no murmurs GI Inspection: Yes normal to inspection, No distended and Yes obesity Palpation (GI): Soft to palpation, not firm, nontender and No hepatosplenomegaly present Auscultation: normal bowel sounds Neuro General: patient oriented x3 Gait exam (Neuro): Normal gait present Psych Appearance: grossly normal Mental Status: mental status grossly normal Speech and movement: Normal speech and movement present Affect: normal affect Attitude: cooperative Thought process: Normal thought process present Thought content: Normal thought content present Insight: Good insight present (Psych) Judgement: Good judgement present (Psych) Results Reviewed Results Reviewed: Operative Note Date of Service: 07/31/22 Procedure Description: EGD, Colonoscopy Indication: hx of gastric polyps Procedure: The patient was placed in the left lateral decubitis position and pre-procedure medications were administered and a bite block was placed. The endoscope was inserted into the mouth and advanced under direct vision to the third part of duodenum. A careful inspection was made as the upper endoscope was withdrawn including a retroflexed examination of the proximal stomach; Findings and interventions are described below. Findings: Larynx:normal Esophagus: GE junction at 42 cm, diaphragm hiatus at 42 cm, normal mucosa Stomach: Normal mucosa with few fundic gland appearing polyps, one of which was biopsied. Biopsies were obtained also from the antrum, angularis and random body of stomach. Grade 2 flap valve on retroflexed examination of the cardia. Duodenum: Normal bulb and descending duodenum, Intervention: Biopsies as noted above COLONOSCOPY Procedure: The patient was placed in the left lateral decubitis position and pre-procedure medications were administered. After a digital rectal examination of the ano-rectum, the video colonoscope was inserted into the rectum and advanced through the colon to the cecum/TI. The colonoscope was slowly withdrawn in a retrograde panoramic fashion and the colon mucosa was carefully examined including a retroflexed view of the rectum. Findings and interventions are described below. Procedure Difficulty: easy Findings: Terminal Ileum-normal Cecum:normal Ascending Colon: normal Transverse Colon -normal Descending Colon:normal Sigmoid Colon: x 4 sessile polyps 8-9 mm removed with cold snare, also mucosal hypertrophy and diverticulosis noted Rectum: Retroflexion with small internal hemorrhoids, grade I Anorectum - normal Colon preparation: [place] Bowel Preparation Scale Right colon; 3 Transverse colon: 3 Left colon; 3 Impression and Post Procedure Diagnosis: Endoscopy Findings: fundic gland polyps Colonoscopy Findings: polyps internal hemorrhoids diverticular disease Plan: Await Pathology results Repeat Colonoscopy in 3-4 years due to polyps or earlier if clinically indicated High fiber diet leaflet avoid straining at stool, epsom salts and sitz bath, anusol supps or cream Above findings were reviewed with the patient and relevant handouts were provided if indicated. PATHOLOGY ollected: 07/31/22 Location: [facility] Received: 07/31/22 Diagnosis A. Stomach, antrum, biopsy: Gastric antrum with focal minimal chronic inactive inflammation; negative for H pylori, intestinal metaplasia and dysplasia. B. Stomach, angularis, biopsy: Gastric body mucosa with focal minimal chronic inactive inflammation; negative for H pylori, intestinal metaplasia and dysplasia. C. Stomach, body, biopsy: Gastric body mucosa with focal minimal chronic inactive inflammation and features suggesting proton pump inhibitor effect; negative for H pylori, intestinal metaplasia and dysplasia. D. Stomach, polyp, biopsy: Fundic gland polyp with congestion and focal minimal chronic inactive inflammation; negative for H pylori, intestinal metaplasia and dysplasia. E. Colon, sigmoid, polyps: Hyperplastic polyps. Clinical History Pre-Op Dx: Polyp of stomach and duodenum, constipation Post-Op Dx: Stomach polyps, colon polyps, internal hemorrhoids, diverticulosis Assessment & Plan Assessment & Plan (1) GERD (gastroesophageal reflux disease): Comment: 07/31/22 EGD- Fundic gland polyp Code(s): K21.9 - Gastro-esophageal reflux disease without esophagitis Category: Medical Qualifiers: Esophagitis presence: without esophagitis Qualified Code(s): K21.9 - Gastro-esophageal reflux disease without esophagitis Plan: Well-controlled with daily omeprazole. 07/31/22 EGD with benign polyp and and chronic minimal inactive inflammation otherwise normal. No further workup needed at this time Take omeprazole as prescribed, taken at least 30-60 minutes before a meal. Education on GERD prevention : -Advised against heavy meals; encouraged small, frequent meals instead of large ones. - Instructed to remain upright for 2?3 hours after eating. - Advised to avoid late-night meals, spicy foods, caffeine, alcohol, known dietary triggers, and tight-fitting clothing. - Emphasis placed on gradual implementation of lifestyle changes to improve adherence and symptom control. (2) Chronic constipation: Comment: 07/31/22 Colonoscopy complete with excellent prep-sigmoid Hyperplastic polyps, internal hemorrhoids, diverticulosis. Recommendations for repeat 3-4 years (5058-5681) Code(s): K59.09 - Other constipation Category: Medical Plan: Continue current docusate regimen; declined need for refill. Monitor for changes in stool consistency Reinforced lifestyle modifications to promote regularity: -higher fiber diet, examples provided -adequate hydration with water -150 minutes of moderate intensity exercise per week (3) Obesity (BMI 30-39.9): Code(s): E66.9 - Obesity, unspecified Category: Medical Plan: BMI 39.1, notable 20+lb weight loss since 07/2023. -Zepbound to be managed by PCP; no GI involvement -No GI side effects reported; no action needed from GI -Pt to address any med access or approval issues with PCP Plan Follow-up in one year or sooner as needed Time: I spent a total of 35 minutes on the date of encounter which includes: Preparing to see the patient (reviewed previous documentation, test results and medical history) Performing a medically appropriate exam and/or evaluation Ordering medications, tests, and procedures Documenting clinical information in the health record Medications: Refilled omeprazole 20 mg PO DAILY 90 caps 3RF 30 days Coding Level of Care Code Established Pt Est Pt Level 4 (13404) Patient Type Established Diagnoses Gastroesophageal reflux disease without esophagitis K21.9 Esophagitis presence: without esophagitis Chronic constipation K59.09 Obesity (BMI 30-39.9) E66.9
[2024-10-28 12:28] VITALS: BP 104/60; PULSE 77; O2SAT 96; BMI 39.0
--- OUTSIDE RECORDS SUMMARY | 2024-10-28 12:47 | XMS_ITS | Clinical Summary ---
Author Organization [facility] ity Address [address] [place] [address] Care Team Providers Care Internet Application Developer Name Role Phone Unavailable Primary Care Provider [...]
--- OUTSIDE RECORDS SUMMARY | 2024-10-28 12:47 | XMS_ITS | Data Portability ---
Author Organization [facility], PAIN OFFICE Address [address] [address] [place] [address] Care Team Providers Care Payroll Secretary Name Role Phone MARK MANN Primary Care Provider Assessment Encounter Date Assessment Date Assessment LastModified by Organization Details LastModified Time 07/06/2015 07/06/2015 Marino Fine is a 35 year old man with complaints of low back pain radiating into left lower extremity. He is S/P Back surgery at [place] and a repeat back surgery in [place]. He states he had some improvement in his left lower extremitypain S/P back surgery. On Exam, he has a positive straight leg raising test on the left. Limited range of motion of the lumbar spine is present. He has signed an authorization for release of information from the surgeon at [place]. I will review the information and formulate further plans. He was advised to continue with a home exercise plan . I have discussed the importance of strengthening his core muscles. [email or web address] Not available 07/20/2015 09:11:33 07/20/2015 07/20/2015 Marino Fine is a 35 year old man with complaints of low back pain radiating into left lower extremity. He is S/P L5-S1 fusion at [place] and a revision of L5-S1 PSIF with Left L5 nerve root decompression on 03/01/2015 in [place]. He states he had some improvement in his left lower extremitypain S/P back surgery. On exam, he has a positive straight leg raising test on the left. Limited range of motion of the lumbar spine is present. I recommend a trial of lumbar epidural steroid injection under fluoroscopic guidance. He states he does not wish to proceed presently. He is being seen at [facility] for his neck pain and shoulder pain. I have discussed that it is in his best interest to be seen at one pain center. Since he is having EMG/NCV study at [facility] for his neck and [...] extremity. He is S/P L5-S1 fusion at [place] and a revision of L5-S1 PSIF with Left L5 nerve root decompression on 03/01/2015 in [place]. He states he had some improvement in [...] I also recommend aquatic physical therapy at [facility] in [place], [place]. He needs to follow up in [...] By Organization Details Last Modified Time 07/06/2015 [id number] He was advised against bed rest lasting longer than four days and to continue activities as tolerated. [email or web address] Not available 07/20/2015 09:09:37 07/20/2015 [id number] He was advised against bed rest lasting longer than four days and to continue activities as tolerated. [email or web address] Not available 07/25/2015 09:01:58 09/19/2015 [id number] He was advised against bed rest lasting longer than four days and to continue activities as tolerated. [email or web address] Not available 09/27/2015 14:21:22 Reason for Referral Aquatic PT Thank you. Referring Physician: Stewart Moyer, Pain Management, Encounter Date: 09/19/2015 Problems Name Problem SNOMED Code Status Onset Date Resolution Date Notes Provider Name and Address Organization Details Recorded Time Lumbar post-laminecto my syndrome 804619846 Active Stewart le MD [address] , [address], [facility] [place], [address], [place] [facility] 6 14:27:20 Displacement of lumbar intervertebral disc without myelopathy 04335838 Active Stewart le MD [address] , [address], [facility] [place], [address], [place] [facility] 6 14:27:20 Lumbosacral spondylosis without myelopathy 63931525 Active Stewart le MD [address] , [address], [facility] [place], [address], [place] [facility] 6 14:27:20 Lumbosacral radiculitis 54206264 Active Stewart le MD [address] , [address], [place], [address], [place] [facility] [...] Name and Address Organization Details Recorded Time 38063 sodium hypochlor ite environme nt,medica tion hives [...] kg/m2 98 % 98 % 69 /min 017877. 81373 g 111/71 mm[Hg] Angela Richards [facility] Pain [facility] 6 14:51:05 Date Recorded Oxygen saturation Oxygen saturation in Arterial blood by Pulse oximetry Heart rate Systolic And Diastolic Provider Name and Address Organization Details Last Updated DateTime 07/20/2015 97 % 97 % 72 /min 111/74 mm[Hg] Angela Richards [facility] Pain Management 6 10:10:15 Date Recorded Heart rate Oxygen saturation Oxygen saturation in Arterial blood by Pulse oximetry Systolic And Diastolic Provider Name and Address Organization Details Last Updated DateTime 09/19/2015 77 /min 97 % 97 % 120/79 mm[Hg] Angela Richards [facility] Pain Management 6 11:47:15 Social History Question Answer Notes LastModified by Organizat ion Details LastModified Time Tobacco Smoking Status Former Smoker Quit x 4 years Not Available [facility] 01/28/2020 03:16:10 Which Illicit Or Recreational Drugs Have You Used? No [id number] Information not available 01/28/2020 Live Alone Or With Others? With Others , Daughter And Son Information not available 07/06/2015 GED Yes [email or web address] Information no t available 07/06/2015 Marital Status Informatio n not available 07/06/2015 How Many Years Have You Smoked Tobacco? 10 [id number] Information not available 01/28/2020 Sex: Unknown Functional Status Question Answer Note LastModified by Organization D etails LastModified Time What is your level of alcohol consumption? None [id number] Information not available 01/28/2020 Mental Status None [...] SNOMED-CT Code Diagnosis ICD10 Code Diagnosis Note [id number] Stewart Moyer MD PAIN OFFICE [address] [place] [address] 07/06/2015 13:56:01 07/20/2015 09:12:01 Displacement of lumbar intervertebral disc without myelopathy 62903995 M51.26 Lumbar post-laminectomy syndrome 607852235 M96.1 Lumbosacra l radiculitis 75260890 M54.17 Lumbosacra l spondylosis without myelopathy 36111238 M47.817 82100 Stewart Moyer MD PAIN OFFICE [address] [place] [address] 07/20/2015 09:46:29 07/25/2015 09:31:24 Lumbosacral spondylosis without myelopathy 71869981 M47.817 Displaceme nt of lumbar intervertebral disc without myelopathy 44332475 M51.26 Lumbosacra l radiculitis 66229446 M54.17 Lumbar post-laminectomy syndrome 091890732 M96.1 23916 Stewart Moyer MD PAIN OFFICE [address] [place] [address] 09/19/2015 11:23:05 09/27/2015 14:27:53 Lumbosacral spondylosis without myelopathy 03409731 M47.817 Displaceme nt of lumbar intervertebral disc without myelopathy 48285279 M51.26 Lumbosacra l radiculitis 55708804 M54.17 Lumbar post-laminectomy syndrome 511859694 M96.1 Health Concerns Section Related Observation LastModified by Organization Detai ls LastModified Time None Recorded Concern Status LastModified by Organization Details LastModified Time None Recorded Advance Directives Directive None Recorded Payers Insurance Date Sequence Insurance Name Policy Number Policy Morales Covered Member ID Morales Member ID Guarantor Name 09/16/2015 2 [place] [facility] Marino Fine [id number] Marino Fine 09/16/2015 1 [facility] (MEDICAID REPLACEMENT - HMO) Marino Fine [id number] Marino Fine Notes Date Note Type Note Provider Name and Address Organization Details Recorded Time 07/06/2015 text/html Pain Management L-spineReported bypatient.Location: Marino Fine is a 35 year old man with complaints of low back pain radiating into left lower extremity. The pain started in 2013 . He is S/P surgery on 07/22/2013 at [place] and then had surgery in [place] on 03/01/2015 and has persistent pain. Quality:throbbing;t ightness;numbess;bu rning;aching;sharp; tingling; He describes the pain in his low back as sharp stabbing pain which occasionally radiates into left lower extremity with numbness. He had some improvement of left lower extremity pain after 2nd surgery in [place]. Severity:current pain level high/10; worst pain high/10;worsening;i nterference with sleep Duration:constant Onset/Timing:gradua l onset; chronic Context:cannot identify Alleviating Factors:medication; lying down Aggravating Factors:flexion; standing; walking Associated Symptoms:no bladder compromise; no bowel compromise;numbness Radiation:left LE Work Related:no ADL (Activities of Daily Living):walking; sweeping; mopping Prior EMG:none Previous Surgeryfusion; laminectomy Previous Injections:none Previous PT:did not help; He had physical therapy at [facility]. Previous career based intervention coordinator:helped bhavana Moyer MD [address], [place], [address], [place] [facility] 07/20/2015 12:00:07 07/20/2015 text/html He is here for a follow up. I have reviewed records from [facility]. He has history of L5-S1 fusion in [place] in 2013 . He is S/P revision of L5-S1 PSIF with Left L5 nerve root decompression on 03/01/2015. He states he had two steroid injections in [place] and had a bad experience. He states he was in a wheel chair prior to the back surgery at [facility] and now he is using a cane . He feels he has improved but continues to have persistent low back and leg symptoms. He is complaining of bilateral shoulder pain, left is greater than right . He states he is being seen at [facility]. He had an EMG/NCV study done. He thinks he has bilateral carpal tunnel syndrome. Stewart Moyer MD [address] , [address], [place], [address], [facility] Pain Management 07/25/2015 11:55:06 09/19/2015 text/html He [...] had a bad experience with injections in [place]. Stewart Moyer MD [address] , [address], [place], [address], [facility] Pain Management 09/28/2015 13:26:00
--- OUTSIDE RECORDS SUMMARY | 2024-10-28 12:47 | XMS_ITS | Encounter Summary ---
Author Organization [employer] Address [address] [place] [address] [address] [place] [address] Care Team Providers Care Agile Developer Name Role Phone Name, Juan STORY Primary Care Provider [phone] Encounter Details Date Type Department Care Team ([facility] st Contact Info) Description 05/28/2023 Telephone [facility] [address] [place], [place] [phone] Name, MD Juan [address] [place], [place] [phone] Social History Tobacco Use Types Packs/Day Years [...] Description 12/21/2024 9:30 AM EDT Office Visit [facility] [address] [place] [phone] Name, MD Juan [address] [place] [address] documented as of this encounter Visit Diagnoses Not on filedocumented in this encounter Additional Health Concerns Assessment Noted Time PHQ-9 Depression Total Score: 0 10/23/19 23 9:17 AM EDT documented as of this encounter Care Teams Agile Developer Relationship Specialty Start Date End Date Name, MD Juan [address] [place] [id number] PCP - General Family Medicine 09/06/15 documented as of this encounter
== END 2024-10-28 13:03 | disposition home or self-care (01) ==
LOC: HO.HGI 12:11
PROVIDERS: PCP Internal Medicine Geriatric Medicine; Visit Provider Nurse Practitioner Family
DX: K21.9 Gastro-esophageal reflux disease without esophagitis (principal); K59.09 Other constipation; E66.9 Obesity, unspecified
CPT/HCPCS: 99214

== ENCOUNTER → 2024-10-28 12:10 | Outpatient (BNVA) | payer OTHER, SELFPAY | PROVIDERS: PCP Internal Medicine Geriatric Medicine; Visit Provider Nurse Practitioner Family | DX: K21.9 Gastro-esophageal reflux disease without esophagitis (principal); K59.09 Other constipation; E66.9 Obesity, unspecified; Z68.39 Body mass index [BMI] 39.0-39.9, adult | CPT/HCPCS: 99212 ==